=== PATIENT | female | born 1965 | race African-American/Black ===

== ENCOUNTER 2022-03-01 22:25 | Outpatient (REF) | payer OTHER, SELFPAY ==
[2022-03-03 10:57] LABS: COVID-19 RT-PCR UVMMC Result Negative (Negative)
== END 2022-03-01 22:26 | disposition home or self-care (01) ==
LOC: LBN 22:25
PROVIDERS: Visit Provider Physician Assistant Medical
DX: R05.8 Other specified cough (principal); J11.1 Influenza due to unidentified influenza virus with other respiratory manifestations; J02.9 Acute pharyngitis, unspecified; R11.2 Nausea with vomiting, unspecified; Z20.822 Contact with and (suspected) exposure to COVID-19
CPT/HCPCS: U0003; 87070

== ENCOUNTER 2022-10-15 12:17 | Outpatient (REF) | payer OTHER, SELFPAY ==
--- NOTE | 2022-10-15 | DI.RAD_ITS ---
Exam(s) XR CHEST 2V PA LATERAL EXAM: XR CHEST 2V PA LATERAL CLINICAL HISTORY: COUGH. TECHNIQUE: 2D digital imaging was performed. COMPARISON: No exams were available for comparison FINDINGS: 2 views: Heart size is normal. The mediastinum is not widened. Lungs are clear. No infiltrates nor pleural effusions. IMPRESSION: No acute pulmonary findings. DATA REPOSITORY: RADIATION DOSE DELIVERED:
--- NOTE | 2022-10-15 18:15 | DI.VRAD_ITS ---
PROCEDURE INFORMATION: Exam: XR Chest Exam date and time: 10/15/2022 6:00 PM Age: 56 years old Clinical indication: Other: Cough TECHNIQUE: Imaging protocol: Radiologic exam of the chest. Views: 2 views. COMPARISON: No relevant prior studies available. FINDINGS: Lungs: Unremarkable. No consolidation. Pleural spaces: Unremarkable. No pleural effusion. No pneumothorax. Heart/Mediastinum: Unremarkable. No cardiomegaly. Bones/joints: Unremarkable. IMPRESSION: No acute findings. Dictated and Authenticated by: Buck Kruger MD. Ordering:JANICE Alston MD
== END 2022-10-15 12:37 ==
LOC: DI 12:17
PROVIDERS: PCP Physician Assistant Medical; Visit Provider Nurse Practitioner Family
DX: R05.8 Other specified cough (principal)
CPT/HCPCS: 71046

== ENCOUNTER 2023-04-03 15:14 | Observation (INO) | payer OTHER, SELFPAY ==
[2023-04-03] VITALS (79 sets, daily range): BP systolic 115–152; BP diastolic 78–110; PULSE 107–130; RESP 13–36; TEMP 36.5–37.1; O2SAT 91–97
--- NOTE | 2023-04-03 15:00 | RT.EKG_ITS ---
APPROVED REPORT Exam: Resting ECG Reason for Exam: Syncope Patient Location: E HR:121 bpm ECG Measurements Heart Rate 121 AXIS MT 152 P 32 QRSd 85 QRS -22 QT 326 T 30 QTc 463 Conclusion Sinus tachycardia...rate> 99 Consider left ventricular hypertrophy...(R aVL+S V3) >2.20mV LAD, No STEMI, no previous for comparison.
--- NOTE | 2023-04-03 15:00 | DI.CT_ITS ---
Exam(s) CT HEAD WO EXAM: CT HEAD WO CLINICAL HISTORY: Syncope, Seizure. TECHNIQUE: Imaging Protocol: Axial computed tomography images with coronal and sagittal reformatted images were created and reviewed COMPARISON: No exams were available for comparison FINDINGS: Ventricles and Extra axial spaces: Normal in size and morphology for the patient's age. Hemorrhage: None. Cerebral parenchyma: No evidence of acute infarct or mass. Mild atrophy. Midline shift: None. Brainstem/Cerebellum: Normal. Calvarium: Normal. Visualized Paranasal sinuses/Mastoids: Clear. Soft Tissues: Unremarkable. IMPRESSION: No acute intracranial process. RADIATION DOSE DELIVERED: Total DLP DATA REPOSITORY: All CT scans at this facility are submitted to the National Radiology Data Registry (NRDR) Dose Index Registry (DIR) with the [employer] (ACR). RADIATION OPTIMIZATION: All CT scans at this facility use at least one of these dose optimization te chniques: automated exposure control; mA and/or kV adjustment per patient size (includes targeted exa ms where dose is matched to clinical indication); or iterative reconstruction.
--- NOTE | 2023-04-03 15:14 | W.ED.GENAD ---
Discharge Plan Disposition Patient Disposition: Admit to [facility] Condition: Serious Discharge Details Chief Complaint: AMS/LOC Clinical Impression: Alcohol withdrawal seizure Admit Date/Time: 04/03/23 19:58 Admit Provider: Dinesh Dias Attending Provider: Dinesh Dias Primary Care Provider: Marbella Phelps ED Provider: Ruma Oconnell Medical Decision Making <Jade Garcia NP - Last Filed: 04/03/23 15:46> 57-year-old female presents to the. She seizure-like activity prior to travel a lot contrast. 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 Did not fall on the floor or hit her head. No history of seizures. She does not remember the event. BGL 153 prior to arrival. She was recently diagnosed with sinus infection and is on antibiotics. Tachycardic per EMS prior to arrival and 128. She is confused. Work-up ordered including CBC CMP magnesium, EKG, right, urinalysis, alcohol level,troponin Care is to be handed off to oncoming provider Anish WOOD pending work-up and CT head. Liter of normal saline ordered 150-hour. <NINA Bourgeois - Last Filed: 04/03/23 22:04> 57-year-old female presents to the. She seizure-like activity prior to travel a lot contrast. 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 Did not fall on the floor or hit her head. No history of seizures. She does not remember the event. BGL 153 prior to arrival. She was recently diagnosed with sinus infection and is on antibiotics. Tachycardic per EMS prior to arrival and 128. She is confused. Work-up ordered including CBC CMP magnesium, EKG, right, urinalysis, alcohol level,troponin Care is to be handed off to oncoming provider Anish WOOD pending work-up and CT head. Liter of normal saline ordered 150-hour. Care was accepted in transition from pending complete work-up Patient is notably tachycardic, on reassessment, it did come to light that she is an alcoholic, drinking approximately a liter of vodka every 3 days, she drinks predominantly in the evenings after work and is able to go from 95 without feeling any signs of withdrawal She is alert and oriented, she does not appear to be postictal, she has marked swelling to her tongue on the right side and bruising consistent with injury likely related to a seizure, given that she is tapering off of vodka, I suspect this was an alcohol induced withdrawal seizure, received has remained at 6, she is alert, oriented, pleasant, able to follow basic commands, has a CT head and neck that does not show evidence of acute abnormality Diagnostic labs, mild QTc prolongation with hypomagnesemia, 1.2, 2 mg of mag initiated, potassium orally initially, EKG does not show evidence of acute ischemia Remains tachycardic despite 5 mg of IV Ativan administered, case discussed with Dr. Alcaraz, phenobarb and initiated, loading dose, 160, patient is resting quite comfortably in the room, no acute distress although she does remain tachycardic at 114 She is given 2 L of LR, LFTs are elevated likely consistent with alcoholism Agreeable to admission at this time for continued monitoring to the intensive care unit HPI <Jade Garcia NP - Last Filed: 04/03/23 15:46> General Mode of arrival: EMS. Date/Time Provider Initiated Documentation: 04/03/23 15:19. Limitations to Documentation: altered mental status. Information obtained by: patient, EMS, RN notes reviewed and old records reviewed. HPI Narrative: 57-year-old female presents to the ER via EMS with a chief complaint of stiffening and loss of consciousness while at work today. She has no recollection of the event she did not fall off the chair did not hit her head. According to EMS she was unresponsive for approximately 1 to 2 minutes. She reports that her thinking is fuzzy she reports denies any pain rating down denies any chest pain shortness of breath headache nausea vomiting diarrhea. She reports that she is was recently sick and out of work for 2 weeks. She does have a history of hypertension and EMS reported that she had a recent sinus infection. Is not on antibiotics. No obvious focal neurodeficits noted. Related Data Allergies Allergy/AdvReac Type Severity Reaction Status Date / Time No Known Allergies Allergy Unverified 04/03/23 15:17 Review of Systems <Jade Garcia NP - Last Filed: 04/03/23 15:46> All systems reviewed & are unremarkable except as noted in HPI and below Cardiovascular Cardiovascular: Reports syncope Neurologic Neurologic: Reports as per HPI, Reports confusion, Reports syncope and Reports seizure-like activity Psychiatric Psychiatric: Reports confusion PFSH <Jade Garcia NP - Last Filed: 04/03/23 15:46> All Active Problems (Updated 04/03/23 @ 21:36 by Dinesh Dias) Macrocytic anemia (Acute) Alcoholic hepatitis without ascites (Acute) Hypokalemia (Acute) Hypomagnesemia (Acute) Alcoholism with alcohol dependence (Acute) Alcohol withdrawal seizure (Acute) Social History Smoking risk assessment performed?: No Alcohol Intake: current Alcohol Intake frequency: 3 or more drinks per day Alcohol type: hard liquor Drug use: Daily Substance use type: marijuana Housing: house Do you feel safe at home: No Do you feel safe in your relationship?: No Exam <Jade Garcia NP - Last Filed: 04/03/23 15:46> Narrative Exam Narrative: Constitutional: Alert and oriented x2. Appears stated age. Normal body habitus. Head: Normocephalic, no trauma. Eyes: Pupils PERRL, Red reflex noted, EOM's intact. Eyelids symmetrical without lesions, discharge, or swelling. ENT: Bilateral TM's WNL, External ear normal to inspection, no mastoid TTP, swelling, or erythema, Nasal turbinates WNL, no nasal discharge. Normal dentition, Posterior pharynx WNL, no exudate. Chest: Sinus tachycardia with a rate of 130, Normal S1, S2, distal pulses intact. Resp: Lungs clear to auscultation bilaterally, no wheezes, rales, or rhonchi. Abdomen: Soft, non-distended, Normoactive bowel sounds all 4 quads. Musculoskeletal: Normal gait, 5/5 strength to all four extremities. Skin: No suspicious rashes or lesions. Capillary refill less than 2 sec. Neurologic: Cranial nerves II-XII intact. Alert and oriented x 2. Motor: No deficits noted. Sensory: Intact bilaterally all 4 extremities. Reflexes: DTR's intact bilaterally.. Hematologic/Lymphatic: No ecchymosis, no lymphadenopathy. Critical Care Time <NINA Bourgeois - Last Filed: 04/03/23 22:04> Critical Care Time Attestation: Approximately 60 minutes of critical care time secondary to acute alcohol withdrawal with seizure, medications such as IV Ativan and phenobarbital administered, telemetry monitoring, CT imaging and interpretation, IV fluid resuscitation, telemetry monitoring, ultimately admission to the intensive care unit Sign Out <Jade Garcia NP - Last Filed: 04/03/23 15:46> Sign Out Data: Sign Out Comment: Here with seizure like activity and LOC. Pending work up and CT head. Last updated by Jade Garcia NP at 04/03/23 15:39
[2023-04-03 16:13] LABS: Abs Immature Grans 0.06 10^3/uL (0.0-0.06); Absolute Basophil Count 0.03 10^3/uL (0.0-0.2); Absolute Eosinophil Count 0.02 10^3/uL (0.0-0.7); Absolute Lymphocyte Count 1.12 10^3/uL (1.2-3.4); Absolute Monocyte Count 0.47 10^3/uL (0.1-0.8); Absolute Neutrophil Count 4.53 10^3/uL (1.2-6.7); Basophils % 0.5; Eosinophils % 0.3; HCT 31.8 % (36.0-46.0); HGB 10.9 g/dL (11.2-15.7); MCH 36.5 pg (27.0-33.0); MCHC 34.3 % (32.0-36.0); MCV 106 fL (80-95); MPV 10.5 fL (8.0-11.0); Monocytes % 7.5; Neutrophils % 72.7; Platelet Count 141 10^3/uL (130-400); RBC 2.99 10^6/uL (3.93-5.22); RDW 17.2 % (11.7-14.6); RDW-SD 66.6 fL; WBC 6.23 10^3/uL (4.4-10.8)
[2023-04-03] MEDS: Normal Saline 1,000 ML 1000 ML IV (16:25)
--- NOTE | 2023-04-03 16:30 | DI.RAD_ITS ---
Exam(s) XR CHEST 2V PA LATERAL EXAM: XR CHEST 2V PA LATERAL CLINICAL HISTORY: new onset seizure. TECHNIQUE: 2D digital imaging was performed. COMPARISON: CR,XR XR CHEST 2V PA LATERAL from 10/15/2022 FINDINGS: 2 views: Heart size is normal. The mediastinum is not widened. Lungs are clear. No infiltrates nor pleural effusions. IMPRESSION: No acute pulmonary findings. DATA REPOSITORY: RADIATION DOSE DELIVERED:
[2023-04-03 16:37] LABS: Anisocytosis 1+; Diff Comment RBC Morph Reviewed; Macrocytosis 1+; Stomatocytes 2+
[2023-04-03] MEDS: LORazepam 2 MG/ML VIAL 1 MG IVP ×3 (16:40→19:30)
[2023-04-03 16:47] LABS: BE (Venous) 3 mmol/L (-2-3); HCO3 (Venous) 27 mmol/L (23-28); O2 Sat (Venous) 70 %; TCO2 (Venous) 25 mmol/L (24-29); pCO2 (Venous) 40 mmHg (41-51); pH (Venous) 7.44 (7.31-7.41); pO2 (Venous) 39 mmHg
[2023-04-03 18:02] LABS: ALT 99 U/L (14-59); AST 247 U/L (15-37); Albumin 3.2 g/dL (3.4-5.0); Alkaline Phosphatase 292 U/L (46-116); Anion Gap 10.4 mmol/L (3-11); BUN 16 mg/dL (7-18); Bilirubin, Total 1.1 mg/dL (0.2-1.0); CO2 25.6 mmol/L (21.0-32.0); CREATININE 1.1 mg/dL (0.55-1.02); Calcium 8.6 mg/dL (8.5-10.1); Chloride 102 mmol/L (98-107); Estimated GFR 58.61 (mL/min/1.73m2); Glucose 113 mg/dL (74-106); Magnesium 1.2 mg/dL (1.8-2.4); Potassium 3.3 mmol/L (3.5-5.1); Sodium 138 mmol/L (136-145); TSH (W/Ref FT4) 1.53 uIU/mL (0.36-3.74); Total Protein 7.7 g/dL (6.4-8.2); Troponin I < 50 ng/L (<or=60)
[2023-04-03 18:08] LABS: ETHANOL BLOOD < 3.0 mg/dL (<10)
[2023-04-03 18:38] LABS: Bilirubin Negative (Negative); Blood Negative (Negative); Clarity Clear (Clear); Glucose Negative (Negative); Ketones Negative (Negative); Leukocyte Esterase Negative (Negative); Nitrite Negative (Negative); Specific Gravity 1.015 (1.005-1.025); Urobilinogen 0.2 mg/dL (Up to 0.2)
[2023-04-03] MEDS: Lactated Ringers 500 ML 1000 ML IV (18:42)
[2023-04-03] MEDS: LORazepam 2 MG/ML VIAL IVP (18:43)
[2023-04-03] MEDS: MAGNESIUM SULFATE 2 GM/50 ML BAG IVPB (18:44)
[2023-04-03 18:51] LABS: *AMPHETAMINES SCREEN URINE Negative (Negative); *BARBITURATES SCREEN URINE Negative (Negative); *BENZODIAZEPINES SCREEN URINE Negative (Negative); Cannabinoids THC Negative (Negative); Cocaine Screen,Urine Negative (Negative); METHADONE URINE SCREEN Negative (Negative); OPIATES URINE SCREEN Negative (Negative)
[2023-04-03 18:54] LABS: Tricyclic Antidepressants Negative (Negative)
[2023-04-03] MEDS: Normal Saline 1,000 ML 150 ML IV (19:30)
[2023-04-03 20:06] LABS: Source Nasal/Nares
[2023-04-03] MEDS: Potassium Chloride 20 MEQ TABCR 40 MEQ PO (20:13)
[2023-04-03] MEDS: PHENobarbital 140 MG in Normal Saline 50 ML 100 MG IVPB (20:13)
[2023-04-03 20:37] LABS: COVID-19 PCR Negative (Negative)
--- NOTE | 2023-04-03 21:31 | W.PM.HP.N ---
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 She had a seizure-like activity and bit her tongue while at work with marked decrease in alcohol intake recently usually drinking 1.7 L of vodka in a week with increased use over the last 2 weeks and patient trying to decrease and stop over the last couple of days. She has never had seizure activity or alcohol withdrawal has been quit for up to a month in the last year. She has not had recent labs for comparison but does have elevated liver function test and low magnesium and potassium. He does not eat well at home with her alcohol intake. She will be admitted for alcohol withdrawal syndrome with phenobarbital protocol and consider further imaging versus neurological consultation if available. She is a full code. Qualifiers: Complication of substance-induced condition: uncomplicated Qualified Code(s): F10.930 - Alcohol use, unspecified with withdrawal, uncomplicated; R56.9 - Unspecified convulsions (2) HTN (hypertension): Status: Chronic Assessment and plan: Patient does have tachycardia with hypertension and does not know her outpatient medical therapy. Metoprolol will be initiated to treat hypertension and tachycardia. Tachycardia may resolve with hydration and treatment of alcohol withdrawal. Qualifiers: Hypertension type: primary hypertension Qualified Code(s): I10 - Essential (primary) hypertension (3) Hypomagnesemia: Start date: 04/03/23 Status: Acute Assessment and plan: Patient was repleted with magnesium in the ED and will receive 4 more grams IV with follow-up labs and adjustment of supplement orally if needed. Long-term stopping alcohol and eating better should help this problem. (4) Hypokalemia: Start date: 04/03/23 Status: Acute Assessment and plan: Replete and follow-up lab adjusting therapy. Patient may be on a chronic hydrochlorothiazide type combination for blood pressure treatment and if so may need chronic potassium supplementation with magnesium. (5) Alcoholism with alcohol dependence: Status: Chronic Assessment and plan: Patient has significant alcohol intake and does not want to stop. She should have outpatient treatment once discharged to help with continued abstinence. Qualifiers: Substance use status: unspecified alcohol-induced disorder Qualified Code(s): F10.29 - Alcohol dependence with unspecified alcohol-induced disorder (6) Alcoholic hepatitis without ascites: Status: Chronic Assessment and plan: Follow-up lab of alcohol. Advance regular diet. (7) Macrocytic anemia: Status: Chronic Assessment and plan: Check for deficiencies and being on alcohol should help this problem. 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 She did have problems with a sore tongue afterwards and had not had any incontinence reported. She brought to the ED and evaluation was consistent with alcohol withdrawal seizures the patient having a history of drinking 1.7 L of vodka mostly at night over about 1 week but with a recent sinus infection and being at home continuously, she was drinking more. Over the last couple of days the patient has been trying to stop her alcohol intake and had a negative alcohol level when she was seen in the ED. She has history of asthma and hypertension and is on minimal medication. She has had no previous history of seizure. Imaging was unrevealing but labs did appear to be consistent with chronic alcoholism with elevated liver function test and electrolyte abnormalities which were being repleted. She did complain of a sore tongue which was improving with decreased swelling but had no other focal complaints with review of systems. She has been active in her job and not miss work because of her drinking. She had had a recent infection as stated with antibiotics and a course of prednisone which she often takes when ill. Her main concern was that she could go back to work and home course of treatment for alcohol withdrawal and time will tell. She was loaded with phenobarbital be treated for alcohol withdrawal with phenobarbital protocol which also may help for seizures. MRI of the brain could be considered the EEG and neurological consultation eventually should all happen. She has no focal neurological complaints as mentioned and this may be able to be done as an outpatient if not available. She is a full code. Review of Systems Narrative: 13 point review of systems otherwise unrevealing or stable. PFSH All Active Problems (Updated 04/04/23 @ 00:41 by Dinesh Dias) HTN (hypertension) (Chronic) Macrocytic anemia (Chronic) Alcoholic hepatitis without ascites (Chronic) Hypokalemia (Acute) Hypomagnesemia (Acute) Alcoholism with alcohol dependence (Chronic) Alcohol withdrawal seizure (Acute) Social History Smoking risk assessment performed?: No Alcohol Intake: current Alcohol Intake frequency: 3 or more drinks per day Alcohol type: hard liquor Drug use: Daily Substance use type: marijuana Housing: house Do you feel safe at home: No Do you feel safe in your relationship?: No Meds Allergies and Home Medications Allergies Allergy/AdvReac Type Severity Reaction Status Date / Time No Known Allergies Allergy Unverified 04/03/23 15:17 Exam Narrative Exam Narrative: General: Patient appears older than stated age, she is moderately obese, slightly sedated from medical therapy but alert and oriented x3. In no acute distress. HEENT: Normocephalic, eyes with pupils equal and reactive to light symmetrically, extraocular movement intact and sclera anicteric. Oropharynx with slightly dry mucosa. Tongue is slightly swollen with some bruising over the edges. Neck: Supple without JVD. Back: Stooped posture without CVA tenderness. Lungs: Decreased aeration of the left more than right base with occasional coarse crackle but no focalizing. No increased expiratory phase or expiratory wheeze. Bronchovesicular breath sounds diffusely. Breast: Exam deferred. Heart: Tachycardic rate with regular rhythm. No appreciable murmur or gallop. Abdomen: Obese contour and slightly protuberant but no focalizing tenderness or guarding. No palpable hepatosplenomegaly. Genitalia/rectal: Exam deferred. Skin: Brown, warm and dry. Extremities: Without clubbing, cyanosis or pitting edema with probable nonpitting edema lower extremities versus obesity. Good capillary refill. Neuro: Cranial nerves II through XII grossly intact. No focalizing motor deficits. DTRs for logic and symmetrical. No Babinski's. No tremor. Psych: Flattened affect with depressed mood. No abnormal thought processes. Remote and recent memory grossly intact. Results Imaging Imaging Studies: EXAM: CT HEAD WO CLINICAL HISTORY: Syncope, Seizure. TECHNIQUE: Imaging Protocol: Axial computed tomography images with coronal and sagittal reformatted images were created and reviewed COMPARISON: No exams were available for comparison FINDINGS: Ventricles and Extra axial spaces: Normal in size and morphology for the patient's age. Hemorrhage: None. Cerebral parenchyma: No evidence of acute infarct or mass. Mild atrophy. Midline shift: None. Brainstem/Cerebellum: Normal. Calvarium: Normal. Visualized Paranasal sinuses/Mastoids: Clear. Soft Tissues: Unremarkable. IMPRESSION: No acute intracranial process. EXAM: XR CHEST 2V PA LATERAL CLINICAL HISTORY: new onset seizure. TECHNIQUE: 2D digital imaging was performed. COMPARISON: CR,XR XR CHEST 2V PA LATERAL from 10/15/2022 FINDINGS: 2 views: Heart size is normal. The mediastinum is not widened. Lungs are clear. No infiltrates nor pleural effusions. IMPRESSION: No acute pulmonary findings. Labs 04/04/23 04:50 04/04/23 04:50 Labs: Laboratory Results - last 24 hr 04/03/23 04/03/23 04/03/23 16:07 16:44 17:25 WBC 6.23 RBC 2.99 L Hgb 10.9 L Hct 31.8 L MCV 106 H MCH 36.5 H MCHC 34.3 RDW 17.2 H Plt Count 141 MPV 10.5 Immature Gran % 1.0 Neutrophils % 72.7 Lymphocytes % 18.0 Monocytes % 7.5 Eosinophils % 0.3 Basophils % 0.5 Nucleated RBC % 0.0 Absolute Neutrophils 4.53 Absolute Lymphocytes 1.12 L Absolute Monocytes 0.47 Absolute Eosinophils 0.02 Absolute Basophils 0.03 RBC Morphology See Below Anisocytosis 1+ Macrocytosis 1+ Stomatocytes 2+ VBG pH 7.44 H VBG pCO2 40 L VBG pO2 39 VBG HCO3 27 VBG Total CO2 25 VBG O2 Saturation 70 VBG Base Excess 3 Sodium Cancelled 138 Potassium Cancelled 3.3 L Chloride Cancelled 102 Carbon Dioxide Cancelled 25.6 Anion Gap Cancelled 10.4 BUN Cancelled 16 Creatinine Cancelled 1.1 H Est GFR (CKD-EPI 2020) Cancelled 58.61 Glucose Cancelled 113 H Calcium Cancelled 8.6 Magnesium Cancelled Cancelled 1.2 L Total Bilirubin Cancelled 1.1 H AST Cancelled 247 H ALT Cancelled 99 H Alkaline Phosphatase Cancelled 292 H Troponin I Cancelled < 50 Total Protein Cancelled 7.7 Albumin Cancelled 3.2 L TSH Cancelled 1.53 Urine Color Urine Clarity Urine pH Ur Specific [place] Urine Protein Urine Ketones Urine Blood Urine Nitrite Urine Bilirubin Urine Urobilinogen Ur Leukocyte Esterase Urine Glucose Urine Opiates Screen Urine Methadone Screen Ur Barbiturates Screen Ur Tricyclics Screen Ur Amphetamines Screen U Benzodiazepines Scrn Urine Cocaine Screen Ur THC Screen Ethyl Alcohol Cancelled < 3.0 COVID-19 Source SARS-CoV-2 (PCR) 04/03/23 04/03/23 18:20 20:05 WBC RBC Hgb Hct MCV MCH MCHC RDW Plt Count MPV Immature Gran % Neutrophils % Lymphocytes % Monocytes % Eosinophils % Basophils % Nucleated RBC % Absolute Neutrophils Absolute Lymphocytes Absolute Monocytes Absolute Eosinophils Absolute Basophils RBC Morphology Anisocytosis Macrocytosis Stomatocytes VBG pH VBG pCO2 VBG pO2 VBG HCO3 VBG Total CO2 VBG O2 Saturation VBG Base Excess Sodium Potassium Chloride Carbon Dioxide Anion Gap BUN Creatinine Est GFR (CKD-EPI 2020) Glucose Calcium Magnesium Total Bilirubin AST ALT Alkaline Phosphatase Troponin I Total Protein Albumin TSH Urine Color Yellow Urine Clarity Clear Urine pH 6.0 Ur Specific [place] 1.015 Urine Protein Negative Urine Ketones Negative Urine Blood Negative Urine Nitrite Negative Urine Bilirubin Negative Urine Urobilinogen 0.2 Ur Leukocyte Esterase Negative Urine Glucose Negative Urine Opiates Screen Negative Urine Methadone Screen Negative Ur Barbiturates Screen Negative Ur Tricyclics Screen Negative Ur Amphetamines Screen Negative U Benzodiazepines Scrn Negative Urine Cocaine Screen Negative Ur THC Screen Negative Ethyl Alcohol COVID-19 Source Nasal/Nares SARS-CoV-2 (PCR) Negative Last Vital Signs Temp 36.5 C 04/03/23 15:12 Pulse 124 H 04/03/23 20:46 Resp 15 04/03/23 21:00 BP 127/91 H 04/03/23 20:46 Pulse Ox 97 04/03/23 15:12 PAWSS Have you Been Recently Intoxicated or Drunk Within the Last 30 days?: Yes Have you Ever Experienced Previous Episodes of Alcohol Withdrawal?: Yes Have you ever Experienced Withdrawal Seizures?: Yes Have you ever Experienced Delirium Tremens(DT)s?: No Have you ever undergone Alcohol Rehabilitation Treatment (i.e, inpt ot outpatient treatment programs)?: No Have you ever Experienced Blackouts?: No Have you ever Combined Alcohol with other Downers within the last 90 days?: No Have you ever Combined Alcohol with any other Substance of Abuse during the last 90 days?: No Positive Blood Alcohol level on Presentation? [PCS.BAL]: No Evidence of Increased Autonomic Activity (i.e. HR>120, tremor, sweating, agitation, nausea)?: No Result: 3 Time Spent Time spent with Patient: >75 minutes Time was spent: preparing to see the patient(eg.review tests), obtaining and/or reviewing separately otained hiistory, ordering medications,tests, procedures, referring, communicating with other health furnace caretaker, indepentently interpreting results, counseling the patient and care coordination
[2023-04-03 22:54] LABS: INR 1.1 (0.9-1.1); Prothrombin Time 10.9 sec (9.1-11.1)
[2023-04-03] MEDS: SODIUM CHLORIDE 0.45% 1,000 ML 125 ML IV (22:54)
[2023-04-03] MEDS: Enoxaparin 40 MG/0.4 ML SYR SC (22:55)
[2023-04-04] VITALS (120 sets, daily range): BP systolic 94–143; BP diastolic 70–94; PULSE 83–132; RESP 8–39; TEMP 35.9–37.3; O2SAT 90–98
--- NOTE | 2023-04-04 | DI.CT_ITS ---
Exam(s) CT SINUS WO EXAM: CT SINUS WO CLINICAL HISTORY: acute sinusitis. Evaluate for sinusitis. TECHNIQUE: Imaging Protocol: Axial computed tomography images with coronal and sagittal reformatted images were created and reviewed. COMPARISON: CT CT HEAD WO from 04/03/2023 FINDINGS: Frontal sinuses: Normally aerated. Ethmoid air cells: Normally aerated. Maxillary sinuses: Minimal mucous retention at the floor of the left maxillary sinus. Right maxillar y sinus is clear. Sphenoid sinus: Normally aerated. Ostiomeatal complexes: Patent. Nasal cavity: Septum is midline. Visualized regional soft tissues: No acute findings. Orbits: Unremarkable. Bones: Unremarkable. Mastoid Air Cells: Normally aerated. Visualized portions of the brain: Unremarkable as visualized. IMPRESSION: Minimal mucous retention floor of left maxillary sinus. RADIATION DOSE DELIVERED: Total DLP DATA REPOSITORY: All CT scans at this facility are submitted to the National Radiology Data Registry (NRDR) Dose Index Registry (DIR) with the [employer] (ACR). RADIATION OPTIMIZATION: All CT scans at this facility use at least one of these dose optimization te chniques: automated exposure control; mA and/or kV adjustment per patient size (includes targeted exa ms where dose is matched to clinical indication); or iterative reconstruction.
[2023-04-04] MEDS: PHENobarbital 110 MG in Normal Saline 50 ML 100 MG IVPB ×2 (00:17→02:18)
[2023-04-04] MEDS: MAGNESIUM SULFATE 4 GM/100 ML BAG IVPB (00:17)
[2023-04-04] MEDS: Normal Saline Flush 10 ML SYR IVP ×3 (01:13→19:57)
[2023-04-04] MEDS: Metoprolol 25 MG TAB PO ×3 (01:20→19:57)
[2023-04-04 05:17] LABS: HGB 10.1 g/dL (11.2-15.7); MCH 35.7 pg (27.0-33.0); MCHC 33.7 % (32.0-36.0); MPV 10.3 fL (8.0-11.0); Platelet Count 134 10^3/uL (130-400); RBC 2.83 10^6/uL (3.93-5.22); RDW 17.4 % (11.7-14.6); WBC 7.38 10^3/uL (4.4-10.8)
[2023-04-04 05:22] LABS: MCV 106 fL (80-95)
[2023-04-04 05:35] LABS: Anion Gap 9.3 mmol/L (3-11); BUN 11 mg/dL (7-18); CO2 25.7 mmol/L (21.0-32.0); CREATININE 0.6 mg/dL (0.55-1.02); Calcium 8.2 mg/dL (8.5-10.1); Chloride 103 mmol/L (98-107); Estimated GFR 104.63 (mL/min/1.73m2); Glucose 117 mg/dL (74-106); Magnesium 2.9 mg/dL (1.8-2.4); Potassium 3.1 mmol/L (3.5-5.1); Sodium 138 mmol/L (136-145)
[2023-04-04 05:39] LABS: PHOSPHORUS 2.5 mg/dL (2.6-4.7)
[2023-04-04 05:43] LABS: ALT 76 U/L (14-59); AST 167 U/L (15-37); Albumin 2.8 g/dL (3.4-5.0); Alkaline Phosphatase 265 U/L (46-116); Bilirubin, Direct 0.5 mg/dL (0.0-0.2); Bilirubin, Total 1.2 mg/dL (0.2-1.0)
--- NOTE | 2023-04-04 09:45 | W.PM.PROGNOT ---
Date of Service Date of service: 04/04/23 Time of Service: 09:45 Assessment and Plan Assessment and plan (1) Alcohol withdrawal seizure: Status: Acute Assessment and plan: check EEG if available, continue phenobarbital loading, however, I would not begin AED. check MRI of brain for any concommittant pathology. monitor for further withdrawal symptoms, continue MVS and thiamine Qualifiers: Complication of substance-induced condition: uncomplicated Qualified Code(s): F10.930 - Alcohol use, unspecified with withdrawal, uncomplicated; R56.9 - Unspecified convulsions (2) Alcoholism with alcohol dependence: Status: Chronic Assessment and plan: refer for manager recovery upon discharge Qualifiers: Substance use status: unspecified alcohol-induced disorder Qualified Code(s): F10.29 - Alcohol dependence with unspecified alcohol-induced disorder (3) Alcoholic hepatitis without ascites: Status: Chronic Assessment and plan: monitor LFT if not resolving w/ abstinence then may need imaging of her liver (4) Sinusitis, acute: Status: Acute Assessment and plan: afrin, flonase and Levaquin; get formal CT of sinuses as her head CT was done w/out contrast and did not get all of her sinuses Qualifiers: Sinusitis location: maxillary Recurrence: non-recurrent Qualified Code(s): J01.00 - Acute maxillary sinusitis, unspecified (5) Macrocytic anemia: Status: Chronic Assessment and plan: awaiting anemia studies, i.e. B12, folate, iron studies but suspect d/t chronic alcohol toxicity of her bone marrow (6) Hypomagnesemia: Status: Acute Assessment and plan: replete and monitor (7) Hypokalemia: Status: Acute Assessment and plan: replete and monitor (8) HTN (hypertension): Status: Chronic Assessment and plan: monitor BP, may normalize w/ treating her withdrawal Qualifiers: Hypertension type: primary hypertension Qualified Code(s): I10 - Essential (primary) hypertension Subjective Subjective Interval history since last seen: Patient had onset seizure yesterday while at work. Occurred in setting of her self reduction in her alcohol intake. She previously been drinking about pint of vodka per day but started diluting over the past week to half pint per day. She also had recent sinusitis and failed amoxicillin. She had complains of facial pain, nasal congestion. She was started on the phenobarbital protocol but only received a loading dose of 6 mg/kg. I have asked pharmacy to give her the full 10 mg/kg loading dose, so she will get the balance of her dose this moring. Unfortunately we have no neurology vocational rehabilitation consultant available today. I will still try to get an EEG done today. If unable to get this done then will arrange as outpatient. She can be transferred out of ICU but will be kept overnight to watch for any further seizures, if none then she can return home tomorrow. She was under recent treatment for sinusitis, when her seizure occurred she had preceding dizziness which she atrributed to her sinusitis. She has failed course of amoxacillin and was to start on zithromax, she had been using Afrin for her nassal congestion. 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 Exam Narrative Exam Narrative: Radha is alert and oriented, N.A.D. She had direct conversation w/ me, she answers me appropriately ramirez not seem to be tremulous and non-diaphoretic Lungs: clear Heart: RRR Extremities: no tremors or sweating HEENT: I did not seeny bite or bleeding to her tongue, she has facial tenderness over both maxilla Objective Last Vital Signs Temp 36.6 C 04/04/23 06:00 Pulse 84 04/04/23 06:00 Resp 18 04/04/23 06:00 BP 103/71 04/04/23 06:00 Pulse Ox 92 04/04/23 08:19 Laboratory Results - last 24 hr 04/03/23 04/03/23 04/03/23 16:07 16:44 17:25 WBC 6.23 RBC 2.99 L Hgb 10.9 L Hct 31.8 L MCV 106 H MCH 36.5 H MCHC 34.3 RDW 17.2 H Plt Count 141 MPV 10.5 Immature Gran % 1.0 Neutrophils % 72.7 Lymphocytes % 18.0 Monocytes % 7.5 Eosinophils % 0.3 Basophils % 0.5 Nucleated RBC % 0.0 Absolute Neutrophils 4.53 Absolute Lymphocytes 1.12 L Absolute Monocytes 0.47 Absolute Eosinophils 0.02 Absolute Basophils 0.03 RBC Morphology See Below Anisocytosis 1+ Macrocytosis 1+ Stomatocytes 2+ PT INR VBG pH 7.44 H VBG pCO2 40 L VBG pO2 39 VBG HCO3 27 VBG Total CO2 25 VBG O2 Saturation 70 VBG Base Excess 3 Sodium Cancelled 138 Potassium Cancelled 3.3 L Chloride Cancelled 102 Carbon Dioxide Cancelled 25.6 Anion Gap Cancelled 10.4 BUN Cancelled 16 Creatinine Cancelled 1.1 H Est GFR (CKD-EPI 2020) Cancelled 58.61 Glucose Cancelled 113 H Calcium Cancelled 8.6 Phosphorus Magnesium Cancelled Cancelled 1.2 L Total Bilirubin Cancelled 1.1 H Conjugated Bilirubin AST Cancelled 247 H ALT Cancelled 99 H Alkaline Phosphatase Cancelled 292 H Troponin I Cancelled < 50 Total Protein Cancelled 7.7 Albumin Cancelled 3.2 L TSH Cancelled 1.53 Urine Color Urine Clarity Urine pH Ur Specific [place] Urine Protein Urine Ketones Urine Blood Urine Nitrite Urine Bilirubin Urine Urobilinogen Ur Leukocyte Esterase Urine Glucose Urine Opiates Screen Urine Methadone Screen Ur Barbiturates Screen Ur Tricyclics Screen Ur Amphetamines Screen U Benzodiazepines Scrn Urine Cocaine Screen Ur THC Screen Ethyl Alcohol Cancelled < 3.0 COVID-19 Source SARS-CoV-2 (PCR) 04/03/23 04/03/23 04/03/23 18:20 20:05 22:25 WBC RBC Hgb Hct MCV MCH MCHC RDW Plt Count MPV Immature Gran % Neutrophils % Lymphocytes % Monocytes % Eosinophils % Basophils % Nucleated RBC % Absolute Neutrophils Absolute Lymphocytes Absolute Monocytes Absolute Eosinophils Absolute Basophils RBC Morphology Anisocytosis Macrocytosis Stomatocytes PT 10.9 INR 1.1 VBG pH VBG pCO2 VBG pO2 VBG HCO3 VBG Total CO2 VBG O2 Saturation VBG Base Excess Sodium Potassium Chloride Carbon Dioxide Anion Gap BUN Creatinine Est GFR (CKD-EPI 2020) Glucose Calcium Phosphorus Magnesium Total Bilirubin Conjugated Bilirubin AST ALT Alkaline Phosphatase Troponin I Total Protein Albumin TSH Urine Color Yellow Urine Clarity Clear Urine pH 6.0 Ur Specific [place] 1.015 Urine Protein Negative Urine Ketones Negative Urine Blood Negative Urine Nitrite Negative Urine Bilirubin Negative Urine Urobilinogen 0.2 Ur Leukocyte Esterase Negative Urine Glucose Negative Urine Opiates Screen Negative Urine Methadone Screen Negative Ur Barbiturates Screen Negative Ur Tricyclics Screen Negative Ur Amphetamines Screen Negative U Benzodiazepines Scrn Negative Urine Cocaine Screen Negative Ur THC Screen Negative Ethyl Alcohol COVID-19 Source Nasal/Nares SARS-CoV-2 (PCR) Negative 04/04/23 04:50 WBC 7.38 RBC 2.83 L Hgb 10.1 L Hct 30.0 L MCV 106 H MCH 35.7 H MCHC 33.7 RDW 17.4 H Plt Count 134 MPV 10.3 Immature Gran % Neutrophils % Lymphocytes % Monocytes % Eosinophils % Basophils % Nucleated RBC % Absolute Neutrophils Absolute Lymphocytes Absolute Monocytes Absolute Eosinophils Absolute Basophils RBC Morphology Anisocytosis Macrocytosis Stomatocytes PT INR VBG pH VBG pCO2 VBG pO2 VBG HCO3 VBG Total CO2 VBG O2 Saturation VBG Base Excess Sodium 138 Potassium 3.1 L Chloride 103 Carbon Dioxide 25.7 Anion Gap 9.3 BUN 11 Creatinine 0.6 Est GFR (CKD-EPI 2020) 104.63 Glucose 117 H Calcium 8.2 L Phosphorus 2.5 L Magnesium 2.9 H Total Bilirubin 1.2 H Conjugated Bilirubin 0.5 H AST 167 H ALT 76 H Alkaline Phosphatase 265 H Troponin I Total Protein 7.0 Albumin 2.8 L TSH Urine Color Urine Clarity Urine pH Ur Specific [place] Urine Protein Urine Ketones Urine Blood Urine Nitrite Urine Bilirubin Urine Urobilinogen Ur Leukocyte Esterase Urine Glucose Urine Opiates Screen Urine Methadone Screen Ur Barbiturates Screen Ur Tricyclics Screen Ur Amphetamines Screen U Benzodiazepines Scrn Urine Cocaine Screen Ur THC Screen Ethyl Alcohol COVID-19 Source SARS-CoV-2 (PCR) PAWSS Have you Been Recently Intoxicated or Drunk Within the Last 30 days?: Yes Have you Ever Experienced Previous Episodes of Alcohol Withdrawal?: Yes Have you ever Experienced Withdrawal Seizures?: Yes Have you ever Experienced Delirium Tremens(DT)s?: No Have you ever undergone Alcohol Rehabilitation Treatment (i.e, inpt ot outpatient treatment programs)?: No Have you ever Experienced Blackouts?: No Have you ever Combined Alcohol with other Downers within the last 90 days?: No Have you ever Combined Alcohol with any other Substance of Abuse during the last 90 days?: No Positive Blood Alcohol level on Presentation? [PCS.BAL]: No Evidence of Increased Autonomic Activity (i.e. HR>120, tremor, sweating, agitation, nausea)?: No Result: 3 Time Spent with Patient Time Spent with Patient: 35-49 minutes Time was spent: preparing to see the patient(eg.review tests), obtaining and/or reviewing separately otained hiistory, ordering medications,tests, procedures, referring, communicating with other health pet caretaker, indepentently interpreting results, counseling the patient and care coordination
[2023-04-04] MEDS: Folic Acid 1 MG TAB PO (10:03)
[2023-04-04] MEDS: Multivitamin TAB 1 TAB PO (10:05)
[2023-04-04] MEDS: Thiamine 100 MG TAB PO (10:06)
--- NOTE | 2023-04-04 10:17 | INITIAL_ITS ---
Date of service: 04/04/23 Time of Service: 10:17 Care Management Initial Assmt Initial Assessment REASON FOR HOSPITALIZATION:: alcohol withdrawal seizure PREVIOUS FUNCTIONAL STATUS/SOCIAL/FAMILY SUPPORTS:: Leyla lives in [place] with her Reid. They do not have any children but they do have 2 dogs. 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 She is independent at baseline and does not receive any community services. CURRENT FUNCTIONAL STATUS:: Leyla was sitting up in bed visiting with a friend when CM met with her. She was pleasant in manner and agreeable to conversation. Leyla stated that she is feeling better. Discussion about substance use resources was deferred due to the presence of her visitor. ADVANCE DIRECTIVES:: none on file Has patient been provided with info about the portal/API?: Yes Did the patient sign up for the portal?: No CODE STATUS:: Full Code INSURANCE COVERAGE / FINANCIAL ISSUES:: [employer] CURRENT HOME/COMMUNITY SERVICES/EQUIPMENT:: none PRIMARY CARE PHYSICIAN:: Marbella Leung POTENTIAL DISCHARGE NEEDS:: substance use treatment PATIENT/FAMILY EDUCATION NEEDS:: Review of discharge instructions, activity, limitations, follow up plan, discuss Ask Me Three TRANSPORTATION:: via private vehicle PLAN:: Anticipate Radha will be discharged home with no new services when medically cleared. She will follow up with her community providers and plan of care and transport with family. CM will follow and support discharge planning needs. PFSH All Active Problems (Updated 04/04/23 @ 10:03 by Elkin Ross MD) Sinusitis, acute (Acute) HTN (hypertension) (Chronic) Macrocytic anemia (Chronic) Alcoholic hepatitis without ascites (Chronic) Hypokalemia (Acute) Hypomagnesemia (Acute) Alcoholism with alcohol dependence (Chronic) Alcohol withdrawal seizure (Acute) Social History Smoking risk assessment performed?: No Alcohol Intake: current Alcohol Intake frequency: 3 or more drinks per day Alcohol type: hard liquor Drug use: Daily Substance use type: marijuana Housing: house Do you feel safe at home: No Do you feel safe in your relationship?: No
[2023-04-04 10:36] LABS: Ferritin 251 ng/mL (8-252); Folate 18.2 ng/mL (8.6-20.0)
[2023-04-04 10:37] LABS: Iron 77 ug/dL (50-170); Total Iron Binding Capacity 330 ug/dL (250-450); Transferrin Sat 23 % (15-50)
[2023-04-04 10:46] LABS: Vitamin B12 441 pg/mL (193-986)
[2023-04-04] MEDS: levoFLOXacin 500 MG, levoFLOXacin 250 MG 750 MG PO (11:18)
[2023-04-04] MEDS: Potassium Chloride 20 MEQ TABCR 40 MEQ PO (12:00)
[2023-04-04] MEDS: Potassium Chloride 10 MEQ CAPCR 20 MEQ PO ×3 (12:13→19:56)
[2023-04-04] MEDS: Fluticasone NASAL SPRAY 16 GM BTL NS ×2 (12:21→19:56)
--- NOTE | 2023-04-04 13:39 | NUR.NOTE ---
Patient placed in wheelchair and taken to radiology for CT scan of sinuses.Nursing Note:
--- NOTE | 2023-04-04 16:00 | CHAPLAIN ---
I had a brief visit with Radha as she had someone in the room with her. I explained my role and offered support.
[2023-04-04] MEDS: Loperamide 2 MG CAP 4 MG PO (16:31)
[2023-04-04 18:35] LABS: C Diff PCR Negative (Negative)
[2023-04-04] MEDS: Oxymetazolone 0.05% SPRAY 15 ML BTL NS (19:55)
[2023-04-04] MEDS: PHENobarbital 130 MG/ML VIAL IVP (19:56)
[2023-04-04] MEDS: Loperamide 2 MG CAP PO (19:59)
[2023-04-04] MEDS: Enoxaparin 40 MG/0.4 ML SYR SC (23:23)
[2023-04-04] MEDS: Acetaminophen 325 MG TAB PO (23:24)
[2023-04-05] VITALS (13 sets, daily range): BP systolic 93–120; BP diastolic 65–83; PULSE 79–97; RESP 16–22; TEMP 36.6–36.8; O2SAT 92–98
[2023-04-05 06:27] LABS: ALT 70 U/L (14-59); AST 137 U/L (15-37); Albumin 2.7 g/dL (3.4-5.0); Alkaline Phosphatase 272 U/L (46-116); BUN 11 mg/dL (7-18); Bilirubin, Total 0.8 mg/dL (0.2-1.0); CREATININE 0.6 mg/dL (0.55-1.02); Calcium 8.5 mg/dL (8.5-10.1); Chloride 105 mmol/L (98-107); Estimated GFR 104.63 (mL/min/1.73m2); Glucose 121 mg/dL (74-106); PHOSPHORUS 3.2 mg/dL (2.6-4.7); Potassium 3.5 mmol/L (3.5-5.1); Sodium 137 mmol/L (136-145); Total Protein 7.1 g/dL (6.4-8.2)
[2023-04-05] MEDS: Multivitamin TAB 1 TAB PO (07:53)
[2023-04-05] MEDS: levoFLOXacin 500 MG, levoFLOXacin 250 MG 750 MG PO (07:53)
[2023-04-05] MEDS: Thiamine 100 MG TAB PO (07:53)
[2023-04-05] MEDS: Fluticasone NASAL SPRAY 16 GM BTL NS (07:54)
[2023-04-05] MEDS: Oxymetazolone 0.05% SPRAY 15 ML BTL NS (07:54)
[2023-04-05] MEDS: Folic Acid 1 MG TAB PO (07:54)
[2023-04-05] MEDS: Metoprolol 25 MG TAB PO (07:54)
[2023-04-05] MEDS: Normal Saline Flush 10 ML SYR IVP (07:55)
--- NOTE | 2023-04-05 10:40 | DSE_ITS ---
Date of service: 04/05/23 Time of Service: 10:40 DS: Diagnosis Discharge Diagnosis (1) Alcohol withdrawal seizure: Status: Acute Asessment and Plan: See admission H&P and ED notes for details of presentation. Patient had new onset seizure while at work associated w/ recent abrupt decrease in the quantity of her daily alcohol consumption. Patient was treated w/ phenobarbital per [facility] alcohol protocol, receiving a total loading dose of 10 mg/kg, she had no further seizures. EEG and neurology were not available for consultation. CT imaging of her brain showed no focal abnormalities. Patient was discharged home to follow up w/ her PCP. She was advised to enter into Alcoholics Anonymous or a similar abstinence program. The director of home care hospice gave her contact information to seek a assistant coach. She was not started on anti-epileptic medications. She should have outpatient follow up w/ neurology, and she should obtain an EEG and a brain MRI scan as an outpatient. (2) Alcoholism with alcohol dependence: Status: Chronic (3) Alcoholic hepatitis without ascites: Status: Chronic Asessment and Plan: transaminases were elevated on admission but were declining through her hospital course but had not yet normalized. a follow up CMP should be done within a week to assess resolution of her transaminitis. (4) Sinusitis, acute: Status: Acute Asessment and Plan: Patient had symptoms of sinusitis and had failed outpatient treatment w/ Augmentin. She was sent home on a 5 day course of Levaquin and told to use OTC Afrin and Flonase (5) Macrocytic anemia: Status: Chronic Asessment and Plan: Likely d/t her alcohol effects on her bone marrow, however follow up CBC should be done as outpatient after some period of abstinence to see if this corrects. If this does not correct then further evaluation should be pursued including bon e marrow biopsy. (6) Hypomagnesemia: Status: Resolved Asessment and Plan: secondary to alcoholism. corrected w/ iv and po magnesium (7) Hypokalemia: Status: Resolved Asessment and Plan: secondary to alcoholism. this was corrected w/ iv and po potassium. repeat levels normal at discharge. Please followup w/ repeat labs in a week (8) HTN (hypertension): Status: Chronic Discharge Plan Disposition Patient Disposition: Home Condition: Good Discharge Details Reason For Visit: alcohol withdrawal, seizure Admit Date/Time: 04/03/23 19:58 Admit Provider: Dinesh Dias Attending Provider: Dinesh Dias Primary Care Provider: Marbella Phelps Home Meds and New Rx's Prescriptions: New levofloxacin 750 mg tablet 750 mg PO DAILY 5 Days Qty: 5 0RF Discharge Instructions Instructions: Alcohol Withdrawal (DC), Generalized Tonic Clonic Seizures (DC) Additional Instructions: Avoid swimming, tub baths, driving, any dangerous sports or activities that can potentially lead to injuries in the event of sudden loss of consciousness including but not limited to driving, motorcycle use, climbing up ladders and working on high spaces or cycling. Continue these precautions until you are cleared by your neurologist. You were treated for acute alcohol withdrawal causing seizures. You were treated w/ phenobarbital for the withdrawal and phenobarbital has a long half life. You were given a loading dose intravenously and the medication will be in your system for the next few days. We do not feel that you should need further phenobarbital. howevver it is important that you do not resume your consumption of alcohol even in small amounts nor even on occasions. You should also get into Alcoholic Anonymous or a similar alcohol abstinence support program. The [facility] director of home care hospice has a list of support coaches that can help you with your alcohol addiction. Becasue we did not have a neurologist available to review your case while you were hospitalized, we recommend outpatient follow up with our local neurologist, Dr. Gonzalez. Of course you may choose to follow with whomever you desire. WE see that your PCP is affiliated / [facility] and she may refer you to someone at [facility]. We would like for you to have a follow up EEG (brain wave scan) and an MRI of the brain. These should be done as outpatient since they are not available on the weekend otherwise these would have been done as inpatient. The EEG will show if there is any abnormal electrical activity that would suggest the substrate for further seizures and the MRI of the brain will exclude any underlying structural abnormalities that would predispose to future seizures, ie., rule out any aneurysm, tumor or multiple sclerosis. You did have a CT scan of the brain which was normal. We have not prescribed any anti-epileptic medications to take on a chronic basis as your seizures are due to acute alcohol withdrawal and as long as you do not return to drinking alcohol, you should not go through withdrawal again. You do have sinusitis and we have started you on Levaquin 750 mg. You should continue this for another 5 days. You may use Afrin and Flonase (both over the counter medications) which can be uses for nasal congestion. Referrals: Marbella Phelps [Primary Care Provider] - (requesting follow up in the next week for alcohol withdrawal seizures) Dionna Gonzalez MD [ [facility] STAFF PHYSICIAN] - (requesting urgent post hospital follow up regarding alcohol withdrawal seizure) Activity:: no driving Equipment/Supplies:: No Equipment Needed Diet:: Normal Diet Discharge Orders Discharge Orders: Discharge Order (Routine); Ordered 04/05/23 Ordered By: Elkin Ross Other Ambulatory Orders: EEG(Regular) (Routine) Timeframe: 1 Week Location: None Selected Ordered By: Elkin Ross MR brain wo (Routine) Timeframe: 1 Week Facility: [facility] - Location: DIAGNOSTIC IMAGING DEPT Ordered By: Elkin Ross Complete Blood Count w/Diff (Routine) Timeframe: 1 Week Facility: [facility] - Location: Laboratory Outpatient - [facility] Ordered By: Elkin Ross Comprehensive Metabolic Panel (Routine) Timeframe: 1 Week Facility: [facility] - Location: Laboratory Outpatient - [facility] Ordered By: Elkin Ross Discharge Data Discharge Date/Time-TO BE ENTERED AT DEPARTURE: 04/05/23 11:15 Discharge Comment: Home DS: Summary Time Spent with Patient providing and/or coordinating discharge services: Less than 30 minutes Specific discharge activities: Interview/exam of patient; review of discharge instructions, completion of prescriptions/discharge instructions; discussion w/ nursing and CM; documentation of hospital visit Status at Discharge Functional status at discharge: independent ambulation Overall status at discharge: patient is back to baseline Mental Status: mental status grossly normal Speech and Movement: speech and movement normal Mood: congruent mood Affect: normal affect Exam Narrative Exam Narrative: Kiko is alert and calm. No hallucinations, no tremors, no diaphoresis. CIWA scores have been zero. She is desiring to return home today. She inquired about having an Rx for couple of pills of phenobarbital. I have explained to her that she has been given a full loading dose of phenobarbital (10 mg/kg) adn that this will remain in her system for a few days and should not need further phenobarbital. I have also reviewd her need for outpatient neurology follow up and outpatient EEG and MRI of brain. Psych Mental Status: mental status grossly normal Speech and Movement: speech and movement normal Mood: congruent mood Affect: normal affect DS: Data Vitals/I&O Vitals and I&O: Vital Signs Temperature 36.8 C 04/05/23 07:45 Temperature Source Temporal Artery Scan 04/05/23 07:45 Pulse 97 H 04/05/23 08:00 Pulse 97 H 04/05/23 08:00 Respiratory Rate 19 04/05/23 08:00 Respiratory Effort Normal, Non-Labored 04/05/23 07:45 Respiratory Depth Normal 04/05/23 07:45 Respiratory Pattern Normal 04/05/23 07:45 Blood Pressure 120/83 04/05/23 08:00 Blood Pressure Mean 95 04/05/23 08:00 Blood Pressure Position Sitting 04/05/23 07:45 Pulse Oximetry 96 04/05/23 08:00 Oxygen Delivery Method Room Air 04/05/23 07:45 Oxygen Flow Rate 0 04/05/23 07:45 Pain Level 0 04/05/23 07:45 Comment 1 Liter Nasal Cannula 04/04/23 06:00 Intake & Output 04/04/23 04/04/23 04/05/23 11:59 23:59 11:59 Intake Total 1562.5847 / 2673.4770 1110.8923 / 2673.4770 290.8923 / 290.8923 Output Total 1000 / 1500 500 / 1500 200 / 200 Balance 562.5847 / 1173.4770 610.8923 / 1173.4770 90.8923 / 90.8923 Weight 67.2 kg Intake: IV 1262.5847 / 1313.4770 50.8923 / 1313.4770 50.8923 / 50.8923 Oral 300 / 1360 1060 / 1360 240 / 240 Output: Urine 1000 / 1200 200 / 1200 200 / 200 Stool 300 / 300 Other: Urine Color Pale Yellow Straw Yellow Urine Appearance Cloudy Clear Clear Urine Odor Normal None Normal Comment Device change due at 1100 04/04/2023. unable to measure volume d/t mixing with stool Patient voided in toilet at this time. Stool Size Moderate Stool Characteristics Liquid Voiding Methods Bedside Commode Data Completed and Pending Labs on day of discharge: Labs from last 24 hours 04/05/23 04/04/23 04/04/23 05:42 17:45 10:00 Sodium 137 Potassium 3.5 Chloride 105 Carbon Dioxide 24.0 Anion Gap 8.0 BUN 11 Creatinine 0.6 Est GFR (CKD-EPI 2020) 104.63 Glucose 121 H Calcium 8.5 Phosphorus 3.2 Total Bilirubin 0.8 AST 137 H ALT 70 H Alkaline Phosphatase 272 H Total Protein 7.1 Albumin 2.7 L Vitamin B12 441 Stl C.difficile Tox PCR Negative B. divergens/MO-1 PCR Pending Babesia duncani (PCR) Pending Babesia microti DNA PCR Pending Lyme Disease Antibody Pending E.chaffeensis DNA (PCR) Pending E.ewingii/canis DNA PCR Pending E.muris eauclairensis (PCR) Pending A. phagocytophilum (PCR) Pending Blood B. miyamotoi (PCR) Pending PFSH All Active Problems (Updated 04/06/23 @ 00:03 by NEHAL THOMAS) Sinusitis, acute (Acute) HTN (hypertension) (Chronic) Macrocytic anemia (Chronic) Alcoholic hepatitis without ascites (Chronic) Alcoholism with alcohol dependence (Chronic) Alcohol withdrawal seizure (Acute) Social History Smoking risk assessment performed?: No Alcohol Intake: current Alcohol Intake frequency: 3 or more drinks per day Alcohol type: hard liquor Drug use: Daily Substance use type: marijuana Housing: house Do you feel safe at home: No Do you feel safe in your relationship?: No Time Spent with Patient Time Spent with Patient: <45 minutes Time was spent: preparing to see the patient(eg.review tests), ordering medications,tests, procedures, referring, communicating with other health family member caretaker, indepentently interpreting results, counseling the patient and care coordination
--- NOTE | 2023-04-05 10:49 | CMDISCH_ITS ---
Date of service: 04/05/23 Time of Service: 10:49 LACE Index Scoring Tool Questions: Length of Stay (in days): 2 Was the patient admitted via the E.D.?: Yes Comorbidities: Liver or Renal Disease E.D. Visits: 0 Answers: Total Score: 10 Risk of Readmission: High Risk Care Management Discharge Plan Reason for Hospitalization: alcohol withdrawal seizure Discharge Plan: Radha will be discharged home with no new services when medic ally cleared. She will follow up with her community providers and plan of care and transport with family. Patient/Family Education Needs: Review discharge instructions, discuss Ask Me Three.
[2023-04-07 09:03] LABS: Transferrin 261 mg/dL (201-352)
[2023-04-07 11:27] LABS: Lyme Ab w Rflx to Lyme Confirm Negative (Negative)
[2023-04-08 15:45] LABS: Anaplasma phagocytophilum Negative (Negative); B. miyamotoi PCR Negative (Negative); Babesia divergens/MO-1 Negative (Negative); Babesia duncani Negative (Negative); Babesia microti Negative (Negative); Ehrlichia chaffeensis Negative (Negative); Ehrlichia ewingii/canis Negative (Negative); Ehrlichia muris eauclairensis Negative (Negative)
== END 2023-04-05 11:15 | disposition home or self-care (01) | DRG 897 ==
LOC: ER 20:24 → ICU 22:04
PROVIDERS: Internal Medicine; Registered Nurse Emergency; Admitting Provider Family Medicine; Emergency Provider Physician Assistant; PCP Physician Assistant Medical; Visit Provider Family Medicine
DX: F10.239 Alcohol dependence with withdrawal, unspecified (principal); I10 Essential (primary) hypertension; E83.42 Hypomagnesemia; R56.9 Unspecified convulsions; K70.10 Alcoholic hepatitis without ascites; J45.909 Unspecified asthma, uncomplicated; E87.6 Hypokalemia; J01.00 Acute maxillary sinusitis, unspecified; D53.9 Nutritional anemia, unspecified
CPT/HCPCS: 00123; 36415; 36416; 80048; 80053; 80076; 80307; 82805; 82962; 85027; 87493; 87635; 87798; 93005; 96361; 96365; 96366; 96368; 96372; 96375; 96376; 99291; J1650; 70450; 70486; 71046; 80320; 81003; 82607; 82728; 82746; 83540; 83550; 83735; 84100; 84443; 84466; 84484; 85025; 85610; 86618; 93010; 99223; 99233; 99239; G0378; J2060; J2560; J3475; J3490

== ENCOUNTER 2023-04-08 02:04 | Outpatient (CLI) | payer OTHER, SELFPAY ==
[2023-04-08 10:51] LABS: Abs Immature Grans 0.04 10^3/uL (0.0-0.06); Absolute Basophil Count 0.02 10^3/uL (0.0-0.2); Absolute Eosinophil Count 0.11 10^3/uL (0.0-0.7); Absolute Monocyte Count 0.53 10^3/uL (0.1-0.8); Absolute Neutrophil Count 5.41 10^3/uL (1.2-6.7); Basophils % 0.3; Eosinophils % 1.6; HCT 32.4 % (36.0-46.0); HGB 10.7 g/dL (11.2-15.7); Immature Grans % 0.6; Lymphocytes % 12.8; MCH 36.8 pg (27.0-33.0); MPV 10.2 fL (8.0-11.0); Monocytes % 7.6; Neutrophils % 77.1; Platelet Count 194 10^3/uL (130-400); RBC 2.91 10^6/uL (3.93-5.22); RDW 17.5 % (11.7-14.6); RDW-SD 73.4 fL; WBC 7.01 10^3/uL (4.4-10.8)
[2023-04-08 10:52] LABS: MCV 111 fL (80-95)
[2023-04-08 11:08] LABS: ALT 52 U/L (14-59); AST 65 U/L (15-37); Albumin 3.1 g/dL (3.4-5.0); Alkaline Phosphatase 265 U/L (46-116); Anion Gap 8.8 mmol/L (3-11); BUN 17 mg/dL (7-18); Bilirubin, Total 0.6 mg/dL (0.2-1.0); CO2 26.2 mmol/L (21.0-32.0); CREATININE 0.7 mg/dL (0.55-1.02); Calcium 9.3 mg/dL (8.5-10.1); Chloride 102 mmol/L (98-107); Estimated GFR 100.81 (mL/min/1.73m2); Glucose 119 mg/dL (74-106); Potassium 3.7 mmol/L (3.5-5.1); Sodium 137 mmol/L (136-145); Total Protein 7.5 g/dL (6.4-8.2)
== END 2023-04-08 02:05 | disposition home or self-care (01) ==
LOC: LBO 02:04
PROVIDERS: Internal Medicine; PCP Physician Assistant Medical; Visit Provider Physician Assistant Medical
DX: D53.9 Nutritional anemia, unspecified (principal); E87.6 Hypokalemia; K70.10 Alcoholic hepatitis without ascites
CPT/HCPCS: 36415; 80053; 85025

== ENCOUNTER 2023-04-08 02:56 | Outpatient (CLI) | payer OTHER, SELFPAY ==
--- NOTE | 2023-04-08 13:58 | PDOC.EEG_ITS ---
Neurology EEG EEG: [facility] Department of Neurology EEG REPORT Date of Recordin04/08/23 Interpreting Physician: Dr. Dionna Gonzalez PCP/Referring Provider: Dr. Elkin Ross Reason for study: Radha Bueno is a 57 year-old with recent ? seizure in the setting of ETOH reduction. Current Medications: Home Medications Medication Instructions Recorded Confirmed Type levofloxacin 750 mg tablet 750 mg PO DAILY 5 days #5 tabs 04/05/23 Rx amlodipine 5 mg-benazepril 20 mg 1 cap PO DAILY 04/08/23 History capsule atorvastatin 20 mg tablet 20 mg PO DAILY 04/08/23 History potassium chloride 10 mEq 10 meq PO DAILY 04/08/23 History capsule,extended release METHODS: A 21 channel digitized electroencephalogram was performed in the [facility] Clinical Neurophysiology Laboratory. The 10/20 international system of electrode placement was used and bipolar and referential electrode montages were recorded. In addition to EEG the patient was monitored for EKG and lateral/vertical eye movements. Activation procedures of photic stimulation and hyperventilation were performed if applicable. Video was used during activation procedures and during events where applicable. The duration of the recording was 30 minutes. DESCRIPTION OF EEG: The patient was noted to be awake , drowsy, and asleep during the recording. During maximal wakefulness a 12-13 Hz posterior background rhythm was present which was well-modulated, symmetrical, reactive to eye opening, and of moderate voltage. With eye opening the background activity changed to a low voltage mixture of alpha, beta, and occasional theta range frequencies. Faster frequencies were present in the bilateral anterior head regions. There was a normal anterior-posterior voltage gradient. During drowsiness, there was attenuation of the posterior dominant background rhythm and vertex waves. Stage II sleep was present with symmetrical sleep spindles, K-complexes, and vertex waves. Activating Procedures: Photic stimulation was performed which produced nol posterior driving response. Hyperventilation was stopped early so she could use her inhaler. EKG: EKG revealed normal sinus rhythm. INTERPRETATION: This EEG is normal during the awake and sleep states as well as during photic stimulation. PRIOR EEG: none CLINICAL CORRELATION: No focal regions of cerebral dysfunction or epileptiform activity was present. Epilepsy remains a clinical diagnosis and a normal EEG does not rule out epilepsy. Clinical correlation is advised. Dionna Gonzalez MD Date of service: 04/08/23 Coding
== END 2023-04-08 02:57 | disposition home or self-care (01) ==
LOC: RT 02:56
PROVIDERS: PCP Physician Assistant Medical; Visit Provider Internal Medicine
DX: R56.9 Unspecified convulsions (principal); F10.20 Alcohol dependence, uncomplicated
CPT/HCPCS: 95819

== ENCOUNTER 2023-06-27 15:56 | Outpatient (REF) | payer OTHER, SELFPAY ==
[2023-06-30 10:27] LABS: Lyme Ab w Rflx to Lyme Confirm Negative (Negative)
[2023-07-01 14:34] LABS: Anaplasma phagocytophilum Negative (Negative); B. miyamotoi PCR Negative (Negative); Babesia divergens/MO-1 Negative (Negative); Babesia duncani Negative (Negative); Babesia microti Negative (Negative); Ehrlichia chaffeensis Negative (Negative); Ehrlichia ewingii/canis Negative (Negative); Ehrlichia muris eauclairensis Negative (Negative)
== END 2023-06-27 15:57 | disposition home or self-care (01) ==
LOC: LBN 15:56
PROVIDERS: PCP Physician Assistant Medical; Visit Provider Physician Assistant Medical
DX: M25.59 Pain in other specified joint (principal)
CPT/HCPCS: 87798; 86618

== ENCOUNTER → 2023-07-14 04:20 | Outpatient (CLI) | payer OTHER, SELFPAY ==
--- NOTE | 2023-07-14 | DI.MRI_ITS ---
Exam(s) MR BRAIN WO EXAM: MR BRAIN WO CLINICAL HISTORY: SEIZURE TECHNIQUE: Multiplanar multisequence MRI of the brain was performed. COMPARISON: CT CT HEAD WO from 04/03/[address] SINUS WO from 04/04/2023 FINDINGS: VENTRICLES AND EXTRA AXIAL SPACES: Normal in size and morphology for the patient's age. MIDLINE SHIFT: None. CEREBRAL PARENCHYMA: No focus of restricted diffusion to suggest acute infarct. No space-occupying le silvia identified. There are few scattered foci of hyperintense signal in the white matter on the FLAIR and T2 weighted images likely reflecting small vessel ischemic disease. These are nonspecific. The temporal lobes are symmetric. They show normal signal and size. HEMORRHAGE: None. BRAINSTEM/CEREBELLUM: Normal. CALVARIUM: Normal. VISUALIZED PARANASAL SINUSES/MASTOIDS:There is a small mucous retention cysts in the left maxillary s inus. The remaining visualized paranasal sinuses are clear. POARCH OF DUMONT: Normal flow void. PITUITARY GLAND: Unremarkable. OTHER FINDINGS: None. IMPRESSION: 1. No intracranial mass or acute infarct. 2. There are few hyperintense white matter lesions seen which are nonspecific but may reflect early s mall vessel ischemic disease. DATA REPOSITORY:
== END ==
PROVIDERS: PCP Physician Assistant Medical; Visit Provider Family Medicine
DX: I67.82 Cerebral ischemia (principal)
CPT/HCPCS: 70551

== ENCOUNTER 2024-03-11 16:23 | Outpatient (REF) | payer OTHER, SELFPAY ==
--- OUTSIDE RECORDS SUMMARY | 2024-03-11 16:24 | XMS_ITS | Continuity of Care Document ---
Author Organization [facility] Address [address] [place] [id number] Care Team Providers Care Continuing Education Specialist Name Role Phone Yudy Hernandez Primary Care Physician Inocente augustin Encounter [facility] [id number] Date(s): 07/12/23 - 07/12/[address] [id number] Discharge Disposition: Home or Self Care Attending Physician: Yudy Hernandez Admitting Physician: Yudy Hernandez Referring Physician: Yudy Hernandez Results Laboratory List Name Date .Morphology ([facility]) 07/12/23 Ammonia Level 07/12/23 Automated Diff 07/12/23 CBC w/ Diff 07/12/23 Comprehensive Metabolic Panel 07/12/23 LDL Direct 07/12/23 Lactate Dehydrogenase 07/12/23 Lipid Panel 07/12/23 Magnesium Level 07/12/23 Miscellaneous Lab Test 07/12/23 PT 07/12/23 Most recent to oldest [Reference Range]: 1 WBC [4.80-10.80 x10^3/mcL] 4.82 x10^3/mc L (07/12/23 11:09 AM) RBC [3.90-5.03 x10^6/mcL] 3.69 x10^6/mcL *LOW* (07/12/23 11:09 AM) Neutro Auto [40.0-74.0 /100(WBCs)] 63.7 /100(WBCs) (07/12/23 11:09 AM) Lymph Auto [19.0-48.0 /100(WBCs)] 29.7 / 100(WBCs) (07/12/23 11:09 AM) Lares Auto [3.0-10.0 /100(WBCs)] 5.0 /100 (WBCs) (07/12/23 11:09 AM) Basophil Auto [0.00-2.00 /100(WBCs)] 0.6 0 /100(WBCs) (07/12/23 11:09 AM) Prothrombin Time [9.3-11.2 seconds] 11.2 seconds (07/12/23 11:09 AM) INR 1.1 *NA* (07/12/2309 AM) BUN [7-18 mg/dL] 20 mg/dL *HI* (07/12/23 11:09 AM) Cholesterol Total [<=200 mg/dL] 343 mg/d L *HI* (07/12/2309 AM) LDL [<=100 mg/dL] 140 mg/dL 1 *HI* (07/12/23 AM) Glucose Level [70-100 mg/dL] 119 mg/dL *HI* (07/12/23:09 AM) Potassium Level [3.5-5.1 mEq/L] 3.8 mEq/ L (07/12/23:09 AM) Baso Absolute [0.00-0.20 x10^3/mcL] 0.03 x10^3/mcL (07/12/23 11:09 AM) MCV [81.0-99.0 fL] 98.6 fL (07/12/23:09 AM) HDL [40-60 mg/dL] 48 mg/dL (07/12/23 11:09 AM) AST [15-37 unit/L] 94 unit/L *HI* (07/12/2309 AM) ALT [14-59 unit/L] 62 unit/L *HI* (07/12/23 1109 AM) MCHC [33.0-36.0 g/dL] 32.7 g/dL *LOW* (07/12/2309 AM) Sodium Level [136-145 mEq/L] 139 mEq/L (07/12/23 11:09 AM) Chol/HDL 7.15 ratio 2 *NA* (07/12/23 11:09 AM) Lymph Absolute [1.20-3.40 x10^3/mcL] 1.4 3 x10^3/mcL (07/12/23 11:09 AM) Hct [36.0-46.0 %] 36.4 % (07/12/23 11:09 AM) Triglycerides [30-150 mg/dL] 1316 mg/dL *HI* (07/12/23 11:09 AM) Calcium Level [8.5-10.1 mg/dL] 8.9 mg/dL (07/12/23 11:09 AM) Lares Absolute [0.11-0.70 x10^3/mcL] 0.24 x10^3/mcL (07/12/23 11:09 AM) Albumin Level [3.4-5.0 g/dL] 3.0 g/dL *LOW* (07/12/23) Protein Total [6.4-8.2 g/dL] 7.4 g/dL (07/12/23 11:09 AM) MCH [27.1-32.0 pg] 32.2 pg *HI* (07/12/23 11:09 AM) Magnesium Level [1.8-2.4 mg/dL] 1.5 mg/d L *LOW* (07/12/23 11:09 AM) Neutro Absolute [1.20-6.70 x10^3/mcL] 3. 07 x10^3/mcL (07/12/23 11:09 AM) Bilirubin Total [0.2-1.2 mg/dL] 0.7 mg/d L (07/12/23 11:09 AM) Hgb [12.0-15.5 g/dL] 11.9 g/dL *LOW* (07/12/23 AM) Alk Phos [55-142 unit/L] 226 unit/L *HI* (07/12/23 11:09 AM) LDH [81-234 IntlUnit/L] 182 IntlUnit/L (07/12/23 11:09 AM) MPV [6.0-10.0 fL] 9.5 fL (07/12/23 11:09 AM) Platelets [150-400 x10^3/mcL] 179 x10^3/ mcL (07/12/23 11:09 AM) CO2 [21-31 mEq/L] 26 mEq/L (07/12/23 11:09 AM) Eos Absolute [0.00-0.70 x10^3/mcL] 0.04 x10^3/mcL (07/12/23 11:09 AM) Ammonia Level [11-32 mcmol/L] 39 mcmol/L *HI* (07/12/23 11:09 AM) Anisocyte 2+ *ABN* (07/12/23 11:09 AM) eGFR Non-AA [>=60 mL/min/1.73 m2] 91 mL/ min/1.73 m2 (07/12/23 11:09 AM) eGFR AA [>=60 mL/min/1.73 m2] 110 mL/min /1.73 m2 (07/12/23 11:09 AM) Chloride Level [98-107 mEq/L] 102 mEq/L (07/12/23 11:09 AM) A/G Ratio 0.7 *NA* (07/12/23 11:09 AM) BUN/Creat Ratio 30 ratio *NA* (07/12/23 11:09 AM) Globulin 4.40 mg/dL *NA* (07/12/23 11:09 AM) Imm Gran Absolute [0.00-0.04 x10^3/mcL] 0.01 x10^3/mcL (07/12/23 11:09 AM) Imm Gran Auto 0.2 /100(WBCs) *NA* (07/12/23 11:09 AM) [facility] Lab Test Name vit b6 *NA* (07/12/23 11:09 AM) [facility] Lab Test Result See Scan Report (07/12/23 11:09 AM) Creatinine Level [0.55-1.02 mg/dL] 0.67 mg/dL (07/12/23 11:09 AM) RDW-CV [11.6-14.8 %] 24.6 % *HI* (07/12/23 11:09 AM) Anion Gap [5-15 mEq/L] 15 mEq/L (07/12/23 11:09 AM) Eos, Auto [1.0-7.0 /100(WBCs)] 0.8 /100( WBCs) *LOW* (07/12/23 11:09 AM) LDL, Direct [<=100 mg/dL] 145 mg/dL *HI* (2/17/24 11:09 AM) 1Interpretive Data: LDL Calculated 2Interpretive Data: Chol/HDL Risk Group Male Female Low 3.5-4.4 3.5-4.4 Average 4.5-6.4 4.5-5.5 High >6.4 >5.5 Social History Social History Type Response Sex Female Patient Care team information Care Team Personnel Name: Yudy Hernandez Position: No Access Member Role: Primary Care Physician Care Team Related Persons Name: ALFREDO DUNN Address: Home [address] [place], [address]
--- OUTSIDE RECORDS SUMMARY | 2024-03-11 16:24 | XMS_ITS | Clinical Summary ---
Author Organization [facility] [place] [address] Care Team Providers Care Planting Material Unloader Name Role Phone Yudy Hernandez MD Primary Care Provider [phone] Allergies Active Allergy Reactions Criticality Noted Date Comments Unclassified Drug 07/23/2018 Pet Dander Medications Medication Sig Dispensed Refills Start Date End Date Status amLODIPine-benazepri l (LOTREL) 5-20 mg Capsule Take 1 capsule by mouth daily. 04/06/2018 Active VENTOLIN HFA 90 mcg/actuation HFA Aerosol Inhaler 04/06/2018 Active ranitidine (ZANTAC) 150 mg Tablet Take 1 tablet by mouth 2 times daily. 180 tablet 3 07/23/2018 Active naproxen sodium (ALEVE) 220 mg Capsule Take by mouth. Pt taking two tablets once a day Active potassium chloride ER (K-Dur/Klor-Con) 10 mEq Tablet Sustained Release take 1 tablet by mouth once daily 01/18/2021 Active atorvastatin (Lipitor) 20 mg Tablet take 1 tablet by mouth every evening 01/17/2021 Active cyclobenzaprine (Flexeril) 10 mg tablet 07/31/2023 Active Active Problems Problem Noted Date Diagnosed Date Chest pain, unspecified 01/17/2021 Bilateral chronic knee pain 04/05/2020 Encounters Date Type Department Care Team Description 01/21/2024 9:30 AM EDT Clinical Support [place] [address] [place], NINA Perdomo Osteoarthritis of both knees, unspecified osteoarthritis type 01/21/2024 Travel 12/16/2023 [place] [address] [place], NIAN Perdomo from Last 3 Months Family History Medical History Relation Comments Anesthesia Reaction Neg Hx Breast Cancer Neg Hx Social History Tobacco Use Types Packs/Day Years Used Date Smoking Tobacco: Former Smokeless Tobacco: Never Comments:Only as a teenager Alcohol Use Standard Drinks/Week Comments Yes 0 (1 standard drink = 0.6 oz pur e alcohol) 2-3 cocktails per day Sex and Gender Information Value Date Recorded Sex Assigned at Not on file Gender Identity Not on file Sexual Orientation Not on file Last Filed Vital Signs Vital Sign Reading Time Taken Comments Blood Pressure 105/77 07/16/2021 2:57 PM EST Pulse 98 07/16/2021 2:57 PM EST Temperature - - Respiratory Rate - - Oxygen Saturation 99% 01/25/2021 11:06 AM EDT Inhaled Oxygen Concentration - - Weight 67.1 kg (148 lb) 01/21/2024 9:08 AM EDT Height 167.6 cm (5' 6) 01/21/2024 9:08 AM EDT Body Mass Index 23.89 01/21/2024 9:08 AM EDT Plan of Treatment Health Maintenance Due Date Last Done Comments CT Colonography 1965 Colonoscopy 1965 Colorectal Cancer Screening 1965 FIT DNA 1965 FIT 1965 Sigmoidoscopy (10 year) with FIT yearly 1965 Sigmoidoscopy 1965 Hepatitis B vaccine (0-59 yrs) (1) 1984 Tetanus/Diphtheria/Pertussis Vaccines (1 - Tdap) 1984 HPV test 10/21/1995 PAP Smear 10/21/1995 Breast Cancer Share Decision Needed 2005 Zoster vaccine (1 of 2) 10/21/2015 Advance Directive 2020 Breast Cancer screening 12/01/2021 12/02/2019, 10/30 Covid-19 Vaccine (1 - season) 2024 Influenza (Flu) vaccine (1 o f 1 - Influenza standard series) 01/25/2024 Diabetes Screening (HgbA1C or Glucose) Discontinued HIV screen Completed 07/23/2018 Hepatitis C Screening Completed 07/23/2018 Procedures Procedure Name Priority Date/Time Associated Diagnosis Comments MAMMO SCREENING CAD AND CLEOPATRA BILATERAL Routine 12/02/2019 10:53 AM EDT Visit for screening mammogram HIV SCREEN, 4TH GENERATION ([facility]/CGP/APD/[facility]) Routine 07/23/2018 5:32 PM EST Elevated liver enzymes HEPATITIS C ANTIBODY Routine 07/23/2018 5:32 PM EST Elevated liver enzymes COMPREHENSIVE METABOLIC PANEL Routine 07/23/2018 5:32 PM EST Elevated liver enzymes from Last 3 Months or Most Recently Relevant to Health Maintenance Results * Mammo Screening Cad and Cleopatra Bilateral (12/02/2019 10:53 AM EDT) Anatomical Region Laterality Modality Breast Bilateral Mammography Narrative 12/02/2019 11:16 AM EDT BILATERAL MAMMOGRAPHY REASON FOR EXAM: Screening TECHNIQUE: CC and MLO views were obtained of each breast using standard 2-D mammography as well as 3-D tomosynthesis. Computer aided detection was used. This is compared with prior images. FINDINGS: ??The breasts are heterogeneously dense, which may obscure small masses. There are no suspicious microcalcifications, masses, or areas of distortion. The pattern is stable. CONCLUSION: No mammographic evidence of malignancy. RECOMMENDATION: Regular screening mammograms starting between age 40 and 50 reduces the risk of from breast cancer. All screening tests have both risks and benefits. These risks and benefits should be assessed for each individual patient through discussion with their provider to determine their preferred breast cancer screening schedule. Women should report any breast changes to a health care provider right away. Some women, because of their family history, a genetic tendency, or other factors, should be screened with annual breast MRI as well as with mammograms. (The number of women who fall into this category is very small). Patients and health care providers should discuss each patient? s history to decide if earlier screening and/or breast MRI are appropriate. Screening should continue as long as a woman is in good health and is expected to live 10 years or longer. Screening mammography may not detect 10-15% of breast cancers. A result letter has been sent to this patient by the [facility]. BIRADS CATEGORY 1: NEGATIVE Marbella WOOD IMG MAMMO ORDERABLES * Hepatitis C Antibody (07/23/2018 5:32 PM EST) Hepatitis C Antibody Negative Negative [facility] Blood specimen (specimen) 07/23/2018 5:32 PM EST 07/23/2018 5:40 PM EST Narrative Resulting Agency Comment Spec In Lab Melania Stephen MD CHEMISTRY ORDERABLES Performing Organization Address City/[facility]/ZIP Co de Phone Number [facility] [place] [address] * HIV Screen, 4th Generation (07/23/2018 5:32 PM EST) Pathologist [facility] HIV Ab/Ag Screen Negative Negative [facility] Comment: This 4th Generation HIV test screens for the presence of the HIV-1 p24 antigen as well as antibodies reactive against HIV-1 and HIV-2. A negative screen does not rule out an acute HIV infection. If acute HIV infection is suspected, testing should be repeated in 2 - 3 weeks or HIV nucleic acid testing performed. Blood specimen (specimen) 07/23/2018 5:32 PM EST 07/23/2018 5:40 PM EST Narrative Resulting Agency Comment Spec In Lab Melania Stephen MD CHEMISTRY ORDERABLES Performing Organization Address City/[facility]/ZIP Co de Phone Number [facility] [place] [address] * (ABNORMAL) Comprehensive metabolic panel (non-fasting) (07/23/2018 5:32 PM EST) Pathologist [facility] Glucose 89 65 - 199 mg/dL [facility] Comment:Diabetes: >=200 mg/d L plus symptoms Blood Urea Nitrogen 17 8 - 18 mg/dL [facility] Creatinine 0.58(L) 0.70 - 1.20 mg/dL [facility] Sodium 137 135 - 145 mmol/L [facility] Potassium 3.7 3.5 - 5.0 mmol/L [facility] Comment: Please note: ??Patients with WBC >100,000 may have falsely elevated Potassium levels. ??For accurate Potassium quantification in these patients send serum separator tube (gold top) for subsequent determinations. ??Contact the Clinical Chemistry Laboratory if there are any questions. Chloride 96(L) 98 - 107 mmol/L [facility] Carbon Dioxide 21(L) 22 - 31 mmol/L [facility] Anion Gap 20(H) 5 - 15 mmol/L [facility] Calcium 8.9 8.5 - 10.5 mg/dL [facility] Protein, Total 7.4 6.1 - 8.0 gm/dL [facility] Albumin 3.8 3.2 - 5.2 gm/dL [facility] Aspartate Aminotransferase 5 0 - 30 unit/L [facility] Alanine Aminotransferase 5 0 - 30 unit/L [facility] Alkaline Phosphatase 76 40 - 104 unit/L [facility] Bilirubin, Total 0.4 0.2 - 1.3 mg/dL [facility] Est Glomerular Filtration Rate 106 >=60 mL/min/1. 73 m?? [facility] Comment: The eGFR was calculated using the CKD-EPI equation. As with all creatinine based estimates of kidney function, eGFR values calculated with the CKD-EPI equation are not accurate in patients with acute kidney failure, extremes of body mass or the acutely ill. [email or web address] eGFR 123 >=60 mL/min/1. 73 m?? [facility] Comment: The eGFR was calculated using the CKD-EPI equation. As with all creatinine based estimates of kidney function, eGFR values calculated with the CKD-EPI equation are not accurate in patients with acute kidney failure, extremes of body mass or the acutely ill. [email or web address] Blood specimen (specimen) 07/23/2018 5:32 PM EST 07/23/2018 5:40 PM EST Narrative Resulting Agency Comment Spec In Lab Melania Stephen MD CHEMISTRY ORDERABLES [facility] [place] [address] from Last 3 Months or Most Recently Relevant to Health Maintenance Care Teams Planting Material Unloader Relationship Specialty Start Date End Date Yudy Hernandez MD [address] [place] [id number] PCP - General Family Medicine 08/05/23
--- OUTSIDE RECORDS SUMMARY | 2024-03-11 16:25 | XMS_ITS | Encounter Summary ---
Author Organization [facility] Address [facility] [place] [address] Care Team Providers Care Oleomargarine Maker Name Role Phone Marbella Francisco Primary Care Provider [phone] Encounter Details Date Type Department Care Team (Latest Contact Info) Description 09/30/2018 9:29 AM EDT - 09/30/2018 11:59 PM EDT Hospital Encounter XRay at [address] [place] [address] Sharad Hoffman MD [facility] [place] [address] Bilateral hand pain Discharge Disposition: Home Social History Tobacco Use Types Packs/Day Years Used Date Smoking Tobacco: Former Smokeless Tobacco: Never Comments:Only as a teenager Sex and Gender Information Value Date Recorded Sex Assigned at Not on file Gender Identity Not on file Sexual Orientation Not on file documented as of this encounter Medications at Time of Discharge Medication Sig Dispensed Refills Start Date End Date amLODIPine-benazepril (LOTREL) 5-20 mg Capsule Take 1 capsule by mouth daily. 04/06/2018 VENTOLIN HFA 90 mcg/actuation HFA Aerosol Inhaler 04/06/2018 ranitidine (ZANTAC) 150 mg Tablet Take 1 tablet by mouth 2 times daily. 180 tablet 3 07/23/2018 documented as of this encounter Plan of Treatment Not on file documented as of this encounter Procedures Procedure Name Priority Date/Time Associated Diagnosis Comments XR HAND MIN 3 VIEWS BILAT Routine 09/30/2018 9:45 AM EDT Bilateral hand pain documented in this encounter Results * XR Hand Min 3 views Bilat (Generic) (09/30/2018 9:45 AM EDT) Anatomical Region Laterality Modality Hand Bilateral Digital Radiogra phy Impressions 09/30/2018 2:10 PM EDT 1. ??No erosions. 2. ??Small osteophytes arising from bilateral basal joints with minimal joint space narrowing. Thank you for letting us participate in the care of this patient. For questions regarding this report, please contact the number below. ? Narrative 09/30/2018 2:10 PM EDT EXAMINATION: XR HAND MIN 3 VIEWS BILAT (GENERIC) CLINICAL HISTORY: Bilat hand pain, ,entered by ordering service TECHNIQUE: 4 views each COMPARISON: None FINDINGS: BONES : Normal bone mineralization. No ankylosis or periostitis. SOFT TISSUES: Symmetric soft tissues. Left -2 well corticated bone densities projected in soft tissues distal to the left pisotriquetral joint. These may represent small intra-articular bodies or soft tissue ossifications. JOINTS: 2-5 IP joints- preserved joint spaces and no erosions. Small well-corticated bone density projected in the volar soft tissues of the right fourth DIP joint. This could be related to old avulsion injury. The alignment at fourth DIP joint is normal. No large osteophytes. 2-5 MCP joints- normal joint spaces and no erosions. Thumb (Basal, scaphoid trapezial trapezoid [STT] and 1 MCP & 1 IP joints)- bilateral small osteophytes arising from the basal joints. Preserved basal joint spaces. Normal STT joints. Radial carpal joint- normal alignment and no erosions Distal radioulnar joint - congruent. Procedure Note Asha Ellis MD - 09/30/2018 EXAMINATION: XR HAND MIN 3 VIEWS BILAT (GENERIC) CLINICAL HISTORY: Bilat hand pain, ,entered by ordering service TECHNIQUE: 4 views each COMPARISON: None FINDINGS: BONES : Normal bone mineralization. No ankylosis or periostitis. SOFT TISSUES: Symmetric soft tissues. Left -2 well corticated bone densities projected in soft tissues distal tothe left pisotriquetral joint. These may represent small intra-articularbodies or soft tissue ossifications. JOINTS: 2-5 IP joints- preserved joint spaces and no erosions. Smallwell-corticated bone density projected in the volar soft tissues of the right fourth DIPjoint. This could be related to old avulsion injury. The alignment at fourth DIPjoint is normal. No large osteophytes. 2-5 MCP joints- normal joint spaces and no erosions. Thumb (Basal, scaphoid trapezial trapezoid [STT] and 1 MCP & 1 IPjoints)- bilateral small osteophytes arising from the basal joints. Preserved basaljoint spaces. Normal STT joints. Radial carpal joint- normal alignment and no erosions Distal radioulnar joint - congruent. IMPRESSION 1. No erosions. 2. Small osteophytes arising from bilateral basal joints with minimaljoint space narrowing. Thank you for letting us participate in the care of this patient. Forquestions regarding this report, please contact the number below. Electronically signed by: Asha Ellis [facility]([phone]), at 09/30/2018 2:10 PM Sharad Hoffman MD IMG DX ORDERABLES documented in this encounter Visit Diagnoses Diagnosis Bilateral hand pain Pain in limb documented in this encounter Care Teams Oleomargarine Maker Relationship Specialty Start Date End Date Marbella Francisco PA [address] [place] [id number] PCP - General Family Medicine 07/23/18 08/04/23 documented as of this encounter
--- OUTSIDE RECORDS SUMMARY | 2024-03-11 16:25 | XMS_ITS | Encounter Summary ---
Author Organization [facility] [place] [address] Care Team Providers Care Control Panel Assembler Name Role Phone Marbella Francisco Primary Care Provider Reason for Visit * Reason Onset Date Comments Results 06/09/2020 Encounter Details Date Type Department Care Team (Late st Contact Info) Description 06/09/2020 Telephone [place] [phone] Alberta Nguyen [facility] [place] [address] Results Social History Tobacco Use Types Packs/Day Years Used Date Smoking Tobacco: Former Smokeless Tobacco: Never Comments:Only as a teenager Sex and Gender Information Value Date Recorded Sex Assigned at Not on file Gender Identity Not on file Sexual Orientation Not on file documented as of this encounter Miscellaneous Notes * Telephone Encounter - Beatrice Tong RMA - 06/12/2020 1:57 PM EST Radha called and and I read to her the message from Sunita nguyen SLOT OPERATIONS MANAGER.. Call was sent to [facility] appt with Dr Godinez as per Sunita's request. * Telephone Encounter - Alberta Nguyen APRN - 06/09/2020 12:26 PM EST Called with MRI scan results. Message left to call me back to discuss results. If i'm not availableok for Nursing to review results. She could leave best time for me to call back. We can try a synvisc injection for mild OA and denerative meniscus tear. If the medial sided knee pain and mechanical complaints are the main concern consider arthroscopy. Would need to come in for eval with Dr. Godinez. FINDINGS: Menisci Medial meniscus: Complex horizontal and radial tear of the posterior horn medial meniscus, with 6 mm of meniscal extrusion into the medial gutter. Lateral meniscus: Normal. ?? Ligaments ACL: Normal PCL: Normal MCL: Normal LCL complex: Normal ?? Tendons Quadriceps: Normal Patellar: Normal Popliteus: Normal ?? Bones: No fracture or bone marrow edema. ?? Cartilage Patellofemoral: Full-thickness cartilage loss of the medial patellar facet with deep fissuring of the lateral patellar facet cartilage. Medial tibiofemoral: Near full-thickness cartilage loss of the medial tibial plateau Lateral tibiofemoral: Normal ?? Joint effusion: Moderate size knee joint effusion with synovitis and lipoma arborescens. Hernandes's cyst: Approximately 4.6 cm in craniocaudal length bilobed Hernandes's cyst. ?? Mild prepatellar soft tissue edema. ?? IMPRESSION 1. Complex tear of the posterior horn right medial meniscus with extrusion into the medial gutter. 2. Moderate-sized knee joint effusion with synovitis. 3. Moderate-sized Hernandes's cyst. 4. Diffuse cartilage loss of the medial tibial plateau and medial patellar facet. No insufficiency fracture. ?? documented in this encounter Plan of Treatment Not on file documented as of this encounter Visit Diagnoses Not on filedocumented in this encounter Care Teams Control Panel Assembler Relationship Specialty Start Date End Date Marbella Francisco PA [address] [place] [id number] PCP - General Family Medicine 07/23/18 08/04/23 documented as of this encounter
--- OUTSIDE RECORDS SUMMARY | 2024-03-11 16:25 | XMS_ITS | Encounter Summary ---
[place] [address] Care Team Providers Care Licensed Esthetician Name Role Phone Marbella Francisco Primary Care Provider [phone] Encounter Details Date Type Department Care Team (Late st Contact Info) Description 07/16/2022 Interpretation Only [address] [phone] Sadiq Hernadez, DO [address] [place] [address] Social History Tobacco Use Types Packs/Day Years [...] on file documented as of this encounter Plan of Treatment Not on file documented as of this encounter Procedures Procedure Name Priority Date/Time Associated Diagnosis Comments XR CHEST ONE VIEW STAT 07/16/2022 8:4 2 PM EST documented in this encounter Results * XR Chest One View (07/16/2022 8:42 PM EST) PT CLASS E RAD ADMITDTTM RAD PT RAD MD INFO [id number]^S JOSELO^MAG ARIZMENDI RAD EXAM DESC XCXR1^XR CHEST 1 VIEW^RIS RAD Anatomical Region Laterality Modality Chest N/A Radiographic Jen ging Impressions 07/16/2022 8:45 PM EST Negative portable chest x-ray. Thank you for letting us participate in the care of this patient. ??If you are a health care provider and have any questions regarding this report, please contact the number below. ??For patients who have questions please contact the health long term care pharmacist that requested your imaging first. ? Narrative 07/16/2022 8:45 PM EST EXAMINATION: XR CHEST 1 VIEW CLINICAL HISTORY: Chest Pain TECHNIQUE: Portable chest x-ray COMPARISON: August 02, 2019 FINDINGS: No pneumothorax. No pleural effusion. No consolidation. No mass. Cardiac, mediastinal and hilar contours are within normal limits. No displaced rib fracture. Procedure Note Melania Morel MD - 07/16/2022 EXAMINATION: XR CHEST 1 VIEW CLINICAL HISTORY: Chest Pain TECHNIQUE: Portable chest x-ray COMPARISON: August 02, 2019 FINDINGS: No pneumothorax. No pleural effusion. No consolidation. No mass.Cardiac, mediastinal and hilar contours are within normal limits. No displacedrib fracture. IMPRESSION Negative portable chest x-ray. Thank you for letting us participate in the care of this patient. If youare a health care provider and have any questions regarding this report,please contact the number below. For patients who have questions please contactthe health long term care pharmacist that requested your imaging first. Sadiq Hernadez DO IMG DX ORDERABL ES documented in this encounter Visit Diagnoses Not on filedocumented in this encounter Care Teams Licensed Esthetician Relationship Specialty Start Date End Date Marbella Francisco PA [address] [place] [id number] PCP - General Family Medicine 07/23/18 08/04/23 documented as of this encounter
--- OUTSIDE RECORDS SUMMARY | 2024-03-11 16:25 | XMS_ITS | Encounter Summary ---
[place] [address] Care Team Providers Care Jailer Name Role Phone Marbella Francisco Primary Care Provider Encounter Details Date Type Department Care Team (Late st Contact Info) Description 03/06/2021 [place] [phone] Myriam Cabrera RMA Social History Tobacco Use Types Packs/Day Years Used Date Smoking Tobacco: Former Smokeless Tobacco: Never Comments:Only as a teenager Sex and Gender Information Value Date Recorded Sex Assigned at Not on file Gender Identity Not on file Sexual Orientation Not on file documented as of this encounter Plan of Treatment Not on file documented as of this encounter Results * XR Knee 1-2 Views Right (Generic) (06/27/2021 10:16 AM EST) Anatomical Region Laterality Modality Knee Right Digital Radiogra phy Impressions 06/27/2021 2:13 PM EST Moderate right greater than left medial compartment predominant knee osteoarthropathy. I have personally reviewed the image(s) and the resident's interpretation and agree with the findings, Sherin Candelario MD at 06/27/2021 2:13 PM Thank you for letting us participate in the care of this patient. ??If you are a health care provider and have any questions regarding this report, please contact the number below. ??For patients who have questions please contact the health healthcare educator that requested your imaging first. ? Electronically signed by: Sherin Candelario MD, [facility] ([phone]), at 06/27/2021 2:13 PM Narrative 06/27/2021 2:13 PM EST EXAMINATION: XR KNEE 1-2 VIEWS RIGHT (GENERIC) CLINICAL HISTORY: R knee pain, hx meniscus tear TECHNIQUE: 2 views RIGHT knee COMPARISON: Knee MRI 06/08/2020 FINDINGS: No fracture or dislocation. There is moderate right greater than left medial compartment joint space narrowing as well as tricompartmental osteophytes. Small right knee joint effusion. Procedure Note Sherin Candelario MD - 06/27/2021 EXAMINATION: XR KNEE 1-2 VIEWS RIGHT (GENERIC) CLINICAL HISTORY: R knee pain, hx meniscus tear TECHNIQUE: 2 views RIGHT knee COMPARISON: Knee MRI 06/08/2020 FINDINGS: No fracture or dislocation. There is moderate right greater than leftmedial compartment joint space narrowing as well as tricompartmental osteophytes.Small right knee joint effusion. IMPRESSION Moderate right greater than left medial compartment predominant knee osteoarthropathy. I have personally reviewed the image(s) and the resident's interpretationand agree with the findings, Sherin Candelario MD at 06/27/2021 2:13 PM Thank you for letting us participate in the care of this patient. If youare a health care provider and have any questions regarding this report,please contact the number below. For patients who have questions please contactthe health healthcare educator that requested your imaging first. Electronically signed by: Sherin Candelario MD, [facility]([phone]), at 06/27/2021 2:13 PM Saulo Godinez MD IMG DX ORDERABLES documented in this encounter Visit Diagnoses Diagnosis Tear of medial meniscus of right knee, unspecified tear type, unspecified whether old or current tear, subsequent encounter Knee effusion, right Effusion of lower leg joint Acute pain of right knee Pes anserine bursitis Pes anserinus tendinitis or bursitis Tear of medial meniscus of right knee, unspecified tear type, unspecified whether old or current tear, subsequent encounter Knee effusion, right Effusion of lower leg joint Acute pain of right knee Pes anserine bursitis Pes anserinus tendinitis or bursitis documented in this encounter Care Teams Jailer Relationship Specialty Start Date End Date Rodrick-Marbella Leung PA [address] [place] [id number] PCP - General Family Medicine 07/23/18 08/04/23 documented as of this encounter
--- OUTSIDE RECORDS SUMMARY | 2024-03-11 16:25 | XMS_ITS | Encounter Summary ---
Author Organization [facility] Address [facility] [place] [address] [place] [address] Care Team Providers Care Acetylene Plant Operator Name Role Phone Marbella Francisco Primary Care Provider Encounter Details Date Type Department Care Team (Latest Contact Info) Description 10/30/2018 1:31 PM EDT - 10/30/2018 11:59 PM EDT Hospital Encounter XRay at [address] [place] [phone] Sharad Hoffman MD [facility] [place] [address] Arthritis of carpometacarpal (CMC) joint of both thumbs Discharge Disposition: Home Social History Tobacco Use Types Packs/Day Years Used Date Smoking Tobacco: Former Smokeless Tobacco: Never Comments:Only as a teenager Sex and Gender Information Value Date Recorded Sex Assigned at Not on file Gender Identity Not on file Sexual Orientation Not on file documented as of this encounter Discharge Instructions * Patient Instructions* Renetta Hernandes - 10/30/2018 2:38 PM EDT Post Injection Patient Injections You received an injection by Sary Maldonado APRN in the diagnostic section of radiology. Procedure: Bilateral Thumb Injection In the days following the injection: ??? Low intensity movement and exercise of the affected joint. ??? Avoid movements that worsen pain. During the first 48 hours following the injection you may experience mild discomfort at the injection site. If you experience pain or discomfort in the affected area, do the following: ??? Apply cold compress to the affected area. ??? If allowed by your physician, take an anti-inflammatory medication such as ibuprofen (example: Advil), Acetaminophen 9example: Tylenol) or Aspirin. IMPORTANT The risk of infection exists whenever the skin is punctured. The risk can be minimized by keeping the injection site clean. However, be aware of the following signs of an infection: ??? Redness and swelling at the injection site. ??? Increased pain. ??? Fever and/or chills. ??? Decreased range of motion in the joint near the injection site. If you experience any of the signs of infection listed above, telephone the diagnostic section of radiology at [phone]. documented in this encounter Medications at Time of Discharge [...] Name Priority Date/Time Associated Diagnosis Comments XR FLUORO INJECTION DRAINAGE JOINT SM RIGHT Routine 10/30/2018 2:39 PM EDT Arthritis of carpometacarpal (CMC) joint of both thumbs XR FLUORO INJECTION DRAINAGE JOINT SM LEFT Routine 10/30/2018 2:39 PM EDT Arthritis of carpometacarpal (CMC) joint of both thumbs documented in this encounter Results * XR Fluoro Guided Joint Injection Small Left (10/30/2018 2:39 PM EDT) Anatomical Region Laterality Modality Left Radio Fluoroscop y Impressions 10/30/2018 3:27 PM EDT Uneventful left thumb cmc joint injection under fluoroscopy. Resident/ Fellow: None Attending: There was no attending present for this procedure Procedure performed by Sary Maldonado APRN Thank you for letting us participate in the care of this patient. For questions regarding this report, please contact the number below. ? Narrative 10/30/2018 3:27 PM EDT HISTORY: Left thumb pain and arthritis. LEFT THUMB CMC JOINT ??INJECTION UNDER FLUOROSCOPY TECHNIQUE: After an extensive conversation with the patient regarding risks and benefits, oral and written consent were obtained.? A pre- procedural time-out was performed, including review of the patient's relevant electronic medical record and allergies, as per [facility] protocol. The patient was placed supine on the fluoroscopic table. ??The skin overlying the left thumb cmc joint was prepped and draped in the usual aseptic manner. 1% Lidocaine was used to achieve local anesthesia. Under fluoroscopic guidance, a 25-gauge 5/8 inch needle was advanced into the joint space. ??Small amount of air was injected to document needle placement. ??A mixture of Ropivacaine and depomedrol was injected. All needles removed at end of procedure. FINDINGS: 1. ??Small amount of injected air in the joint space. 2. ??PAIN SCORE: ??Before: 6/10 ??After: ??4/10 3. Fluoroscopy time: 0.05 minutes 4. Medications: ??Lidocaine 1% - <5 ml, for subcutaneous anesthesia ?? A mixture composed of the following medication was prepared: Ropivacaine HCL ??0.5% -0.5 ml (2.5mg) methylPREDNISolone acetate 40: 40 mg Total injected volume: 0.75ml COMPLICATIONS: None immediate. POST-PROCEDURE CARE: Information regarding monitor of infection, post- procedural pain and management of steroid flare were reviewed with patient. Procedure Note Sary Maldonado APRN - 10/30/2018 HISTORY: Left thumb pain and arthritis. LEFT THUMB CMC JOINT INJECTION UNDER FLUOROSCOPY TECHNIQUE: After an extensive conversation with the patient regarding risks andbenefits, oral and written consent were obtained.? A pre- procedural time-out was performed, including review of the patient's relevant electronic medicalrecord and allergies, as per [facility] protocol. The patient was placed supine on the fluoroscopic table. The skinoverlying the left thumb cmc joint was prepped and draped in the usual aseptic manner.1% Lidocaine was used to achieve local anesthesia. Under fluoroscopicguidance, a 25-gauge 5/8 inch needle was advanced into the joint space. Small amountof air was injected to document needle placement. A mixture of Ropivacaine and depomedrol was injected. All needles removed at end of procedure. FINDINGS: 1. Small amount of injected air in the joint space. 2. PAIN SCORE: Before: 6/10 After: 4/10 3. Fluoroscopy time: 0.05 minutes 4. Medications: Lidocaine 1% - <5 ml, for subcutaneous anesthesia A mixture composed of the following medication was prepared: Ropivacaine HCL 0.5% -0.5 ml (2.5mg) methylPREDNISolone acetate 40: 40 mg Total injected volume: 0.75ml COMPLICATIONS: None immediate. POST-PROCEDURE CARE: Information regarding monitor of infection, post- procedural pain and management of steroid flare were reviewed withpatient. IMPRESSION Uneventful left thumb cmc joint injection under fluoroscopy. Resident/ Fellow: None Attending: There was no attending present for this procedure Procedure performed by Sary Maldonado APRN Thank you for letting us participate in the care of this patient. Forquestions regarding this report, please contact the number below. Sharad Hoffman MD IMG FLUORO ORDERABLE S * XR Fluoro Guided Joint Injection Small Right (10/30/2018 2:39 PM EDT) Anatomical Region Laterality Modality Right Radio Fluoroscop y Impressions 10/30/2018 3:25 PM EDT Uneventful right thumb cmc joint injection under fluoroscopy. Resident/ Fellow: None Attending: There was no attending present for this procedure Procedure performed by Sary Maldonado APRN Thank you for letting us participate in the care of this patient. For questions regarding this report, please contact the number below. ? Narrative 10/30/2018 3:25 PM EDT HISTORY: Right thumb pain and arthritis RIGHT THUMB CMC JOINT ??INJECTION UNDER FLUOROSCOPY TECHNIQUE: After an extensive conversation with the patient regarding risks and benefits, oral and written consent were obtained.? A pre- procedural time-out was performed, including review of the patient's relevant electronic medical record and allergies, as per [facility] protocol. The patient was placed supine on the fluoroscopic table. ??The skin overlying the right thumb cmc joint was prepped and draped in the usual aseptic manner. 1% Lidocaine was used to achieve local anesthesia. Under fluoroscopic guidance, a 25-gauge 5/8 inch needle was advanced into the joint space. ??Small amount of air was injected to document needle placement. ??A mixture of Ropivacaine and depomedrol was injected. All needles removed at end of procedure. FINDINGS: 1. ??Small amount of injected air in the joint space. 2. ??PAIN SCORE: ??Before: 10 ??After: ??/10 3. Fluoroscopy time: 0.22 minutes 4. Medications: ??Lidocaine 1% - <5 ml, for subcutaneous anesthesia ?? A mixture composed of the following medication was prepared: Ropivacaine HCL ??0.5% - 0.5 ml (2.5mg) methylPREDNISolone acetate 40: 40 mg Total injected volume: 0.5ml COMPLICATIONS: None immediate. POST-PROCEDURE CARE: Information regarding monitor of infection, post- procedural pain and management of steroid flare were reviewed with patient. Procedure Note Sary Maldonado APRN - 10/30/2018 HISTORY: Right thumb pain and arthritis RIGHT THUMB CMC JOINT INJECTION UNDER FLUOROSCOPY TECHNIQUE: After an extensive conversation with the patient regarding risks andbenefits, oral and written consent were obtained.? A pre- procedural time-out was performed, including review of the patient's relevant electronic medicalrecord and allergies, as per [facility] protocol. The patient was placed supine on the fluoroscopic table. The skinoverlying the right thumb cmc joint was prepped and draped in the usual aseptic manner.1% Lidocaine was used to achieve local anesthesia. Under fluoroscopicguidance, a 25-gauge 5/8 inch needle was advanced into the joint space. Small amountof air was injected to document needle placement. A mixture of Ropivacaine and depomedrol was injected. All needles removed at end of procedure. FINDINGS: 1. Small amount of injected air in the joint space. 2. PAIN SCORE: Before: 6/10 After: 4/10 3. Fluoroscopy time: 0.22 minutes 4. Medications: Lidocaine 1% - <5 ml, for subcutaneous anesthesia A mixture composed of the following medication was prepared: Ropivacaine HCL 0.5% - 0.5 ml (2.5mg) methylPREDNISolone acetate 40: 40 mg Total injected volume: 0.5ml COMPLICATIONS: None immediate. POST-PROCEDURE CARE: Information regarding monitor of infection, post- procedural pain and management of steroid flare were reviewed withpatient. IMPRESSION Uneventful right thumb cmc joint injection under fluoroscopy. Resident/ Fellow: None Attending: There was no attending present for this procedure Procedure performed by Sary Maldonado APRN Thank you for letting us participate in the care of this patient. Forquestions regarding this report, please contact the number below. Sharad Hoffman MD IMG FLUORO ORDERABLE S documented in this encounter Visit Diagnoses Diagnosis Arthritis of carpometacarpal (CMC) joint of both thumbs documented in this encounter Administered Medications Inactive Administered Medications - up to 3 most recent administrations Medication Order MAR Action Action Date Dose Rate Site ROpivacaine (PF) 5 mg/mL (0.5 %) 4 mL with methylPREDNISolone acetate 40 mg injection Intra-articular, ONCE, 1 dose, On Fri10/30/18 at 1430 Given 10/30/2018 2:12 PM EDT ROpivacaine (PF) 5 mg/mL (0.5 %) 4 mL with methylPREDNISolone acetate 40 mg, iohexol 300 mg/mL 4 mL injection Intra-articular, ONCE, 1 dose, On Fri10/30/18 at 1445 Given 10/30/2018 2:31 PM EDT documented in this encounter Care Teams Acetylene Plant Operator Relationship Specialty Start Date End Date Marbella Francisco PA [address] [place] [id number] PCP - General Family Medicine 07/23/18 08/04/23 documented as of this encounter
--- OUTSIDE RECORDS SUMMARY | 2024-03-11 16:25 | XMS_ITS | Encounter Summary ---
[facility] Organization [facility] [place] [address] Care Team Providers Care Fitter Helper Name Role Phone Marbella Francisco Primary Care Provider Reason for Referral * Diagnostic Test (Routine) - Closed Specialty Diagnoses / Procedures Referred By Contac t Referred To Contact Radiology Diagnoses Knee effusion, right Tear of medial meniscus of right knee, unspecified tear type, unspecified whether old or current tear, subsequent encounter Pes anserine bursitis Procedures MRI Knee wo Contrast Right (Generic) Alberta Nguyen APRN [facility] [place] [address] [place] [address] Referral ID Status Reason Start Date Expiration Date V isits Requested Visits Authorized [id number] Closed Specialty Service Requested 05/17/2020 11/15/2021 1 1 Encounter Details Date Type Department Care Team (Latest Contact Info) Description 05/17/2020 10:40 AM EST TH Visit (TeleHealth) [place] [address] Alberta Nguyen APRN [facility] [place] [address] Knee effusion, right; Tear of medial meniscus of right knee, unspecified tear type, unspecified whether old or current tear, subsequent encounter; Pes anserine bursitis Social History Tobacco Use Types Packs/Day Years Used Date Smoking Tobacco: Former Smokeless Tobacco: Never Comments:Only as a teenager Sex and Gender Information Value Date Recorded Sex Assigned at Not on file Gender Identity Not on file Sexual Orientation Not on file documented as of this encounter Progress Notes * Alberta Nguyen, EXPLOSIVE OPERATOR GRENADE - 05/17/2020 10:40 AM EST I obtained the patient's consent to receiving health care services at [facility] through telemedicine. We discussed the opportunities and limitations of delivering health care services through telemedicine. I told the patient that the telemedicine service is being delivered over a secure connection, except in the event of emergency conditions when such requirements may be waived. Patient agreed to the participation of other individuals assisting with their care by telemedicine, if indicated. Patient informed that telemedicine informed consent form is available for patient's review in -'s patient portal, [facility]. Subjective: planned f/u for both knee injections. She did well s/p injections for a few weeks with very little pain. However, The right knee pain is now back to square one. The left knee is relatively quiescent. Radha is unsure how to proceed at this time. Pain is moderate with mild swelling. Vannessa does admittedly help with pain and swelling. She is working on some physical therapy exercises on her own at this time. No interval falls or injuries. No other health relative issues to report at this time. Physical exam: N/A. Decision Making/Plan: Radha did well initially with both knee injections for a few weeks with verylittle pain. However, The right knee pain has recurrent back to square one. She is frustrated about her continued pain despite multiple conservative modalities PT exercises, Scheduled NSAID's, and steroid injections. At this time, as discussed in my previous evaluation, we could consider further cross sectional imaging to assess for intra-articular pathology such as a flipped, displaced meniscus, pes anserine bursitis, or subchondral insufficiency fracture. The patient indicates understandingof these issues and agrees with the plan. Radha also reports some friends that have tried gel injections and wonders if this would be appropriate for her. I did encourage Radha to review Synvisc injection on line review under their PT ed portal to see if this would be a modality she would like to try. I have placed the RIGHT knee MRI scan order in [facility] with oral sedation due to anxiety and claustrophobia. I have already ordered this as a future order in the computer. Radha is comfortable with this approach. F/u plan: I will call with the MRI scan results. Patient verbally consents to this telephone visit and understands that this visit may be billed, similar to a clinic office visit. I provided care to the patient today via telephone call. The total time associated with this visit was 10 minutes including chart prep, telephone visit and documentation. documented in this encounter Plan of Treatment Not on file documented as of this encounter Results * MRI Knee wo Contrast Right (Generic) (06/08/2020 2:29 PM EST) Anatomical Region Laterality Modality Knee Right Magnetic Resonan ce Impressions 06/09/2020 8:23 AM EST 1. ??Complex tear of the posterior horn right medial meniscus with extrusion into the medial gutter. 2. ??Moderate-sized knee joint effusion with synovitis. 3. ??Moderate-sized Hernandes's cyst. 4. ??Diffuse cartilage loss of the medial tibial plateau and medial patellar facet. ??No insufficiency fracture. Preliminary report signed by: Kostas Enamorado at 06/08/2020 4:25 PM I have personally reviewed the image(s) and the resident's interpretation and agree with the findings, Sherin Candelario MD at 06/09/2020 8:23 AM Thank you for letting us participate in the care of this patient. For questions regarding this report, please contact the number below. ? Electronically signed by: Sherin Candelario MD, [facility] ([phone]), at 06/09/2020 8:23 AM Narrative 06/09/2020 8:23 AM EST EXAMINATION: MRI KNEE WO CONTRAST RIGHT (GENERIC) CLINICAL HISTORY: severe right knee pain despite multiple modalities PT, NSAIDs, injections. ??clinical exam concerning for MMT, pes anserine bursitis, possible subchondral insufficienty fracture, eval for meniscus tear, pes anserine bursitis or insufficiency fracture, needs oral sedation due to claustrophobia TECHNIQUE: MRI of the right knee performed without the use of intravenous contrast. COMPARISON: Knee radiographs 11/23/2019. FINDINGS: Menisci Medial meniscus: Complex horizontal and radial tear of the posterior horn medial meniscus, with 6 mm of meniscal extrusion into the medial gutter. Lateral meniscus: Normal. Ligaments ACL: Normal PCL: Normal MCL: Normal LCL complex: Normal Tendons Quadriceps: Normal Patellar: Normal Popliteus: Normal Bones: No fracture or bone marrow edema. Cartilage Patellofemoral: Full-thickness cartilage loss of the medial patellar facet with deep fissuring of the lateral patellar facet cartilage. Medial tibiofemoral: Near full-thickness cartilage loss of the medial tibial plateau Lateral tibiofemoral: Normal Joint effusion: Moderate size knee joint effusion with synovitis and lipoma arborescens. Hernandes's cyst: Approximately 4.6 cm in craniocaudal length bilobed Hernandes's cyst. Mild prepatellar soft tissue edema. Procedure Note Sherin Candelario MD - 06/09/2020 EXAMINATION: MRI KNEE WO CONTRAST RIGHT (GENERIC) CLINICAL HISTORY: severe right knee pain despite multiple modalities PT,NSAIDs, injections. clinical exam concerning for MMT, pes anserine bursitis,possible subchondral insufficienty fracture, eval for meniscus tear, pes anserine bursitis or insufficiency fracture, needs oral sedation due toclaustrophobia TECHNIQUE: MRI of the right knee performed without the use of intravenous contrast. COMPARISON: Knee radiographs 11/23/2019. FINDINGS: Menisci Medial meniscus: Complex horizontal and radial tear of the posterior hornmedial meniscus, with 6 mm of meniscal extrusion into the medial gutter. Lateral meniscus: Normal. Ligaments ACL: Normal PCL: Normal MCL: Normal LCL complex: Normal Tendons Quadriceps: Normal Patellar: Normal Popliteus: Normal Bones: No fracture or bone marrow edema. Cartilage Patellofemoral: Full-thickness cartilage loss of the medial patellar facetwith deep fissuring of the lateral patellar facet cartilage. Medial tibiofemoral: Near full-thickness cartilage loss of the medialtibial plateau Lateral tibiofemoral: Normal Joint effusion: Moderate size knee joint effusion with synovitis andlipoma arborescens. Hernandes's cyst: Approximately 4.6 cm in craniocaudal length bilobed Hernandes'scyst. Mild prepatellar soft tissue edema. IMPRESSION 1. Complex tear of the posterior horn right medial meniscus withextrusion into the medial gutter. 2. Moderate-sized knee joint effusion with synovitis. 3. Moderate-sized Hernandes's cyst. 4. Diffuse cartilage loss of the medial tibial plateau and medialpatellar facet. No insufficiency fracture. Preliminary report signed by: Kostas Enamorado at 06/08/2020 4:25 PM I have personally reviewed the image(s) and the resident's interpretationand agree with the findings, Sherin Candelario MD at 06/09/2020 8:23 AM Thank you for letting us participate in the care of this patient. Forquestions regarding this report, please contact the number below. Electronically signed by: Sherin Candelario MD, [facility]([phone]), at 06/09/2020 8:23 AM Alberta Nguyen APRN IMG MRI ORDERABLES documented in this encounter Visit Diagnoses Diagnosis Knee effusion, right Effusion of lower leg joint Tear of medial meniscus of right knee, unspecified tear type, unspecified whether old or current tear, subsequent encounter Pes anserine bursitis Pes anserinus tendinitis or bursitis Knee effusion, right Effusion of lower leg joint Tear of medial meniscus of right knee, unspecified tear type, unspecified whether old or current tear, subsequent encounter Pes anserine bursitis Pes anserinus tendinitis or bursitis documented in this encounter Care Teams Fitter Helper Relationship Specialty Start Date End Date Marbella Francisco PA [address] [place] [phone] PCP - General Family Medicine 07/23/18 08/04/23 documented as of this encounter
--- OUTSIDE RECORDS SUMMARY | 2024-03-11 16:25 | XMS_ITS | Encounter Summary ---
[place] [address] Care Team Providers Care Account Representative Name Role Phone Marbella Francisco Primary Care Provider Encounter Details Date Type Department Care Team ([facility] st Contact Info) Description 04/25/2023 [facility] [address] [place] [address] Josie Montenegro, [facility] Social History Tobacco Use Types Packs/Day Years [...] on filedocumented in this encounter Care Teams Account Representative Relationship Specialty Start Date End Date Marbella Francisco PA [address] [place] [id number] PCP - General Family Medicine 07/23/18 08/04/23 documented as of this encounter
--- OUTSIDE RECORDS SUMMARY | 2024-03-11 16:25 | XMS_ITS | Encounter Summary ---
[place] [address] Care Team Providers Care Tarring Machine Operator Name Role Phone Marbella Francisco Primary Care Provider Encounter Details Date Type Department Care Team ([facility] st Contact Info) Description 02/19/2023 Interpretation Only [address] [address] Sonny Marcelo MD [address] [place] [id number] Social History Tobacco Use Types Packs/Day Years [...] Priority Date/Time Associated Diagnosis Comments XR CHEST PA AND LATERAL STAT 02/19/2023 7:30 PM EDT documented in this encounter Results * XR Chest PA & Lateral (Generic) (02/19/2023 7:30 PM EDT) PT CLASS E DH RAD ADMITDTTM DH RAD PT RAD INFO [id number]^S TONER^SONNY^ D DH RAD EXAM DESC XCXR2^XR CHEST 2 VIEWS^RIS RAD Anatomical Region Laterality Modality Chest N/A Radiographic Jen ging Impressions 02/19/2023 7:58 PM EDT No acute pulmonary process. Thank you for letting us participate in the care of this patient. ??If you are a health care provider and have any questions regarding this report, please contact the number below. ??For patients who have questions please contact the health assistant child care teacher that requested your imaging first. ? Electronically signed by: Severo Freeman MD, [facility] ??([phone]), at 02/19/2023 7:58 PM Narrative 02/19/2023 7:58 PM EDT EXAMINATION: XR CHEST 2 VIEWS CLINICAL HISTORY: cough, sOB, asthma exacerbation TECHNIQUE: PA and lateral chest x-ray COMPARISON: Chest x-ray 07/16/2022 FINDINGS: The lungs are clear. No airspace consolidation, pleural effusion, or pneumothorax. The cardiomediastinal silhouette is unchanged. No cardiomegaly. Tortuous descending thoracic aorta, unchanged. No evidence of pulmonary edema. No acute osseous abnormality is seen. Procedure Note Severo Freeman MD - 02/19/2023 EXAMINATION: XR CHEST 2 VIEWS CLINICAL HISTORY: cough, sOB, asthma exacerbation TECHNIQUE: PA and lateral chest x-ray COMPARISON: Chest x-ray 07/16/2022 FINDINGS: The lungs are clear. No airspace consolidation, pleural effusion, or pneumothorax. The cardiomediastinal silhouette is unchanged. Nocardiomegaly. Tortuous descending thoracic aorta, unchanged. No evidence of pulmonaryedema. No acute osseous abnormality is seen. IMPRESSION No acute pulmonary process. Thank you for letting us participate in the care of this patient. If youare a health care provider and have any questions regarding this report,please contact the number below. For patients who have questions please contactthe health assistant child care teacher that requested your imaging first. Electronically signed by: Severo Freeman MD, [facility]([phone]), at 02/19/2023 7:58 PM Sonny Marcelo MD IMG DX ORDERABLES documented in this encounter Visit Diagnoses Not on filedocumented in this encounter Care Teams Tarring Machine Operator Relationship Specialty Start Date End Date Marbella Francisco PA [address] [place] [id number] PCP - General Family Medicine 07/23/18 08/04/23 documented as of this encounter
--- OUTSIDE RECORDS SUMMARY | 2024-03-11 16:25 | XMS_ITS | Encounter Summary ---
Author Organization [facility] [place] [place] [address] Care Team Providers Care Wildfire Prevention Specialist Name Role Phone Marbella Francisco Primary Care Provider [phone] Reason for Visit * Reason Onset Date Comments Appointment 06/29/2021 Encounter Details Date Type Department Care Team (Late st Contact Info) Description 06/29/2021 [place] [address] [place], NINA Perdomo [facility] [place] [address] Appointment Social History Tobacco Use Types Packs/Day Years Used Date Smoking Tobacco: Former Smokeless Tobacco: Never Comments:Only as a teenager Sex and Gender Information Value Date Recorded Sex Assigned at Not on file Gender Identity Not on file Sexual Orientation Not on file documented as of this encounter Miscellaneous Notes * Telephone Encounter - Raiza Hoover - 06/29/2021 2:45 PM EST Patient has been scheduled. * Telephone Encounter - Morena Nguyen - 06/29/2021 11:11 AM EST LM#1 for Patient to schedule with Myriam Rossi (3 weeks out and attach referral for Synvisc) NXR KNEE SYNVISC INJ documented in this encounter Plan of Treatment Not on file documented as of this encounter Visit Diagnoses Not on filedocumented in this encounter Care Teams Wildfire Prevention Specialist Relationship Specialty Start Date End Date Marbella Francisco PA [address] [place] [phone] PCP - General Family Medicine 07/23/18 08/04/23 documented as of this encounter
--- OUTSIDE RECORDS SUMMARY | 2024-03-11 16:25 | XMS_ITS | Encounter Summary ---
[place] [address] Care Team Providers Care Senior Data Warehouse Architect Name Role Phone Marbella Francisco Primary Care Provider [phone] Encounter Details Date Type Department Care Team (Latest Contact Info) Description 10/30/2018 11:20 AM EDT - 10/30/2018 1:30 PM EDT Hospital Encounter Mammography/[place] [address] Marbella Francisco PA [address] [place] [phone] Encounter for screening mammogram for breast cancer Discharge Disposition: Home Social History Tobacco Use [...] Associated Diagnosis Comments MAMMO SCREENING CAD AND YOGI BILATERAL Routine 10/30/2018 11:52 AM EDT Encounter for screening mammogram for breast cancer documented in this encounter Results * Mammo Screening Cad and Yogi Bilateral (10/30/2018 11:52 AM EDT) Anatomical Region Laterality Modality Breast Bilateral Mammography Narrative 10/30/2018 12:09 PM EDT BILATERAL MAMMOGRAPHY REASON FOR EXAM: Screening TECHNIQUE: CC and MLO views were obtained of each breast using standard 2-D mammography as well as 3-D tomosynthesis. Computer aided detection was used. There are no prior images for comparison. FINDINGS: ??The breasts are heterogeneously dense, which may obscure small masses. There are no suspicious microcalcifications, masses, or areas of distortion. CONCLUSION: No mammographic evidence of malignancy. RECOMMENDATION: Medical organizations agree that annual screening mammography beginning at age 40 saves the most lives. The risks of screening are negligible compared to dying from breast cancer or suffering from more aggressive treatment required when detected at a later stage. No woman is at low risk for breast cancer. Some women, because of their family history, a genetic tendency, or certain other factors, should be screened with breast MRI along with mammograms. (The number of women who fall into this category is very small). The patient and health care provider should discuss the patient history and decide if earlier screening and breast MRI are appropriate. Screening should continue as long as a woman is in good health and is expected to live 10 years or longer. Screening mammography may not detect 10-15% of breast cancers. Women should report any breast changes to a health care provider right away. A result letter has been sent to this patient by the [facility]. BIRADS CATEGORY 1: NEGATIVE Marbella WOOD IMG MAMMO ORDERABLES documented in this encounter Visit Diagnoses Diagnosis Encounter for screening mammogram for breast cancer documented in this encounter Care Teams Senior Data Warehouse Architect Relationship Specialty Start Date End Date Marbella Francisco PA [address] [place] [phone] PCP - General Family Medicine 07/23/18 08/04/23 documented as of this encounter
--- OUTSIDE RECORDS SUMMARY | 2024-03-11 16:25 | XMS_ITS | Encounter Summary ---
[place] [address] Care Team Providers Care Route Sales Manager Name Role Phone Marbella Nava Primary Care Provider [phone] Reason for Referral * Diagnostic Test (Routine) - Closed Specialty Diagnoses / Procedures Referred By Contac t Referred To Contact Radiology Diagnoses Fatty liver Procedures US Abdomen Limited Marbella Nava PA [address] [place] [address] [facility] [place] [address] Referral ID Status Reason Start Date Expiration Date V isits Requested Visits Authorized [id number] Closed Specialty Service Requested 01/17/2021 07/20/2022 1 1 Reason for Visit * Diagnostic Test (Routine) - Closed Specialty Diagnoses / Procedures Referred By Contac t Referred To Contact Radiology Diagnoses Fatty liver Procedures US Abdomen Limited Marbella Nava PA [address] [place] [address] [facility] [place] [address] Referral ID Status Reason Start Date Expiration Date V isits Requested Visits Authorized [id number] Closed Specialty Service Requested 01/17/2021 07/20/2022 1 1 Encounter Details Date Type Department Care Team (Latest Contact Info) Description 01/25/2021 2:56 PM EDT - 01/25/2021 11:59 PM EDT Hospital Encounter [place] [address] Marbella Nava PA [address] [place] [address] Fatty liver Discharge Disposition: Home Social History Tobacco Use Types Packs/Day Years Used Date Smoking Tobacco: Former Smokeless Tobacco: Never Comments:Only as a teenager Sex and Gender Information Value Date Recorded Sex Assigned at Not on file Gender Identity Not on file Sexual Orientation Not on file documented as of this encounter Medications at Time of Discharge Medication Sig Dispensed Refills Start Date End Date potassium chloride ER (K-Dur/Klor-Con) 10 mEq Tablet Sustained Release take 1 tablet by mouth once daily 01/18/2021 atorvastatin (Lipitor) 20 mg Tablet take 1 tablet by mouth every evening 01/17/2021 naproxen sodium (ALEVE) 220 mg Capsule Take by mouth. Pt taking two tablets once a day amLODIPine-benazepril (LOTREL) 5-20 mg Capsule Take 1 capsule by mouth daily. 04/06/2018 VENTOLIN HFA 90 mcg/actuation HFA Aerosol Inhaler 04/06/2018 ranitidine (ZANTAC) 150 mg Tablet Take 1 tablet by mouth 2 times daily. 180 tablet 3 07/23/2018 documented as of this encounter Plan of Treatment Not on file documented as of this encounter Procedures Procedure Name Priority Date/Time Associated Diagnosis Comments US ABDOMEN LIMITED Routine 01/25/2021 3: 23 PM EDT Fatty liver documented in this encounter Results * US Abdomen Limited (01/25/2021 3:23 PM EDT) Anatomical Region Laterality Modality Abdomen Ultrasound 01/25/2021 3:21 PM EDT Impressions 01/25/2021 4:43 PM EDT 1. ??Enlarged echogenic hepatic parenchyma consistent with hepatic steatosis. No focal lesion. 2. ??Small 4 mm gallbladder polyp. Recommend follow- up ultrasound one year. I have personally reviewed the image(s) and the resident's interpretation and agree with the findings, Claudia Blackwell MD at 01/25/2021 4:35 PM Electronically signed by: Claudia Blackwell MD, [facility] [place] ([phone]), at 01/25/2021 4:35 PM Thank you for letting us participate in the care of this patient. If you are a health care provider and have any questions regarding this report, please contact the number above. For patients who have questions, please contact the health critical care nurse practitioner that requested your imaging first. ?Claudia Young, Staff Physician Electronically Signed Final Report ?? 01/25/2021 04:42 pm Narrative 01/25/2021 4:43 PM EDT Abdominal ? (Signed Final 01/25/2021 04:42 pm) PATIENT INFO: ID #: ? [id number] ?: ??[birth year] (55 yrs)(F) Name: ? ROLY BUENO ? Visit Date: 01/25/2021 03:21 pm PERFORMED BY: Performed By: ? Wai Buchanan RDMS Attending: ?Rosalva GROVE, Claudia Metzger Resident: ? Yoanna GROVE, Khadra Carroll Referred By: ?MARBELLA NAVA Location: ? [place] SERVICE(S) PROVIDED: UABDLIM - Abdominal Limited Survey Single ? 49065 Organ or Quadrant - [id number] INDICATIONS: FATTY(CHANGE OF)LIVER, NOT ELSEWHERE CLASSIFIED COMPARISON: 04/02/18 ------ LIVER: ------ Right Lobe Length: ?? 19.4 ?? cm Echogenicity/Echotexture: ?? Fatty liver GALLBLADDER: Cholelithiasis: ?No stones visualized Wall Thickness: ?Normal wall thickness Focal Tenderness: ?Negative sonographic Hoover's sign Comment: ?Polyp BILIARY TRACT: Intrahepatic Ducts: ?? Normal Extrahepatic Ducts: ?? Normal Common Duct Size: ? 4.0 ? mm --------- PANCREAS: --------- Head: ?Normal ?Size: Tail: ?Poorly visualized due to ?Size: ?overlying bowel Body: ?Normal ?Size: RIGHT KIDNEY: Size (cm) ?L: ??11.9 Cortical Thickness: ?Normal Cortical Echogenicity: ?? Normal Hydronephrosis: ?No sonographic evidence ---- IVC: ---- Normal in caliber where visualized. Procedure Note Claudia Evans MD - 01/25/2021 Abdominal (Signed Final 01/25/2021 04:42 pm) PATIENT INFO: ID #: [id number] : 65 (55 yrs)(F) Name: ROLY BUENO Visit Date: 01/25/2021 03:21 pm PERFORMED BY: Performed By: Wai Buchanan RDMS Attending: Claudia Blackwell MD Resident: Khadra Lenz MD Referred By: MARBELLA NAVA Location: [place] SERVICE(S) PROVIDED: UABDLIM - Abdominal Limited Survey Single [id number] Organ or Quadrant - [id number] INDICATIONS: FATTY(CHANGE OF)LIVER, NOT ELSEWHERE CLASSIFIED COMPARISON: 04/02/18 ------ LIVER: ------ Right Lobe Length: 19.4 cm Echogenicity/Echotexture: Fatty liver GALLBLADDER: Cholelithiasis: No stones visualized Wall Thickness: Normal wall thickness Focal Tenderness: Negative sonographic Hoover's sign Comment: Polyp BILIARY TRACT: Intrahepatic Ducts: Normal Extrahepatic Ducts: Normal Common Duct Size: 4.0 mm --------- PANCREAS: --------- Head: Normal Size: Tail: Poorly visualized due to Size: overlying bowel Body: Normal Size: RIGHT KIDNEY: Size (cm) L: 11.9 Cortical Thickness: Normal Cortical Echogenicity: Normal Hydronephrosis: No sonographic evidence ---- IVC: ---- Normal in caliber where visualized. IMPRESSION 1. Enlarged echogenic hepatic parenchyma consistent with hepatic steatosis. No focal lesion. 2. Small 4 mm gallbladder polyp. Recommend follow- up ultrasound one year. I have personally reviewed the image(s) and the resident's interpretation and agree with the findings, Claudia Blackwell MD at 01/25/2021 4:35 PM Electronically signed by: Claudia Blackwell MD, [facility] ([phone]), at 01/25/2021 4:35 PM Thank you for letting us participate in the care of this patient. If you are a health care provider and have any questions regarding this report, please contact the number above. For patients who have questions, please contact the health critical care nurse practitioner that requested your imaging first. Claudia Young, Staff Physician Electronically Signed Final Report 01/25/2021 04:42 pm Marbella WOOD IMG US GEN ORDERABLE S documented in this encounter Visit Diagnoses Diagnosis Fatty liver Other chronic nonalcoholic liver disease documented in this encounter Care Teams Route Sales Manager Relationship Specialty Start Date End Date Marbella Nava PA [address] [place] [id number] PCP - General Family Medicine 07/23/18 08/04/23 documented as of this encounter
--- OUTSIDE RECORDS SUMMARY | 2024-03-11 16:25 | XMS_ITS | Encounter Summary ---
Author Organization [facility] [place] [address] Care Team Providers Care Air Boatswain Name Role Phone Yudy Hernandez MD Primary Care Provider [phone] Reason for Visit * Reason Comments Follow-up NXR BILATERAL KNE E PAIN MONOVISC INJECTONSPATIENT AWARE OF LOCATION CHANGE * High Dollar Medication (Routine) - Authorized Specialty Diagnoses / Procedures Referred By Hayley lay Referred To Contact Orthopaedics Diagnoses Osteoarthritis of both knees, unspecified osteoarthritis type Procedures Monovisc Authorization Request (IN CLINIC) TC MONOVISC INJECTION, PER DOSE EnidMyriam PA [facility] [place] [address] [facility] [address] [place] [phone] Referral ID Status Reason Start Date Expiration Date Visits Requested Visits Authorized [id number] Authorized Consult, Test & Treat 12/16/2023 12/15/2024 1 2 Encounter Details Date Type Department Care Team (Latest Contact Info) Description 01/21/2024 9:30 AM EDT Clinical [place] [address] EnidMyriam PA [facility] [place] [address] Osteoarthritis of both knees, unspecified osteoarthritis type Social History Tobacco Use Types Packs/Day Years [...] on file documented as of this encounter Last Filed Vital Signs Vital Sign Reading Time Taken Comments Blood Pressure - - Pulse - - Temperature - - Respiratory Rate - - Oxygen Saturation - - Inhaled Oxygen Concentration - - Weight 67.1 kg (148 lb) 01/21/2024 9:08 AM EDT Height 167.6 cm (5' 6) 01/21/2024 9:08 AM EDT Body Mass Index 23.89 01/21/2024 9:08 AM EDT documented in this encounter Progress Notes * Enid, NINA Perdomo - 01/21/2024 9:30 AM EDT Radha Bueno is a 58 y.o. female who presents to clinic today for procedure only visit, bilateralknee Monovisc injection for bilateral knee DJD.Has had cortisone in the past, but prefers to defer this due to concerns for joint degradation. Visco was helpful last time. She reports increasing painand would like to proceed with injection today. Denies interval change in health. Denies current infectious symptoms. After discussion, would like to proceed. See procedure note below. bilateral knee with tace effusion. No warmth, lesions, drainage. ROM 0-120. Stable to varus, valgusand AP stress. Calf is supple, nontender. Foot is warm, well perfused. Sensation intact to light touch distally. PROCEDURE NOTE: Bilateral knee Monovisc Injection A time-out was performed and the bilateral knee was confirmed to be the site of injection. The patient was confirmed to have no allergies to betadine, local anesthetics, or viscosupplementation. The patient was counseled about the potential risks of the procedure, including infection, bleeding and incomplete relief of symptoms. The patient provided consent. The skin was prepped widely over the bilateral knee. Then, using sterile technique, a solution consisting of 4cc Monovisc, was injected into the bilateral knee. The needle was felt to slide into the capsule and the mixture flowed freely. The skin was cleaned and a Band-Aid was applied. The patient t olerated the procedure well. She will monitor pain in the upcoming weeks to determine efficacy of the injection. We discussed that if injections are effective she can have up to 2 per joint per year. She will return to clinic doroteo as-needed basis if symptoms persist, progress, she would like to proceed with repeat corticosteroid or visco injection, she would like to discuss further management strategies for knee osteoarthritis. Questions were solicited and answered. She agrees with this plan. NINA Peña documented in this encounter Plan of Treatment Not on file documented as of this encounter Visit Diagnoses Diagnosis Osteoarthritis of both knees, unspecified osteoarthritis type documented in this encounter Administered Medications Inactive Administered Medications - up to 3 most recent administrations Medication Order MAR Action Action Date Dose Rate Site hyaluronate sodium, stabilized (Monovisc) Syringe 88 mg 88 mg (4 mL), Intra-articular, ONCE, On Fri01/21/24 at 1030, 1 dose Given 01/21/2024 10:03 AM EDT 88 mg hyaluronate sodium, stabilized (Monovisc) Syringe 88 mg 88 mg (4 mL), Intra-articular, ONCE, On Fri01/21/24 at 1030, 1 dose Given 01/21/2024 10:03 AM EDT 88 mg documented in this encounter Care Teams Air Boatswain Relationship Specialty Start Date End Date Yudy Hernandez MD [address] [place] [address] PCP - General Family Medicine 08/05/23 documented as of this encounter
--- OUTSIDE RECORDS SUMMARY | 2024-03-11 16:25 | XMS_ITS | Encounter Summary ---
Author Organization [facility] [place] [address] Care Team Providers Care Orthodontist Assistant Name Role Phone Marbella Francisco Primary Care Provider Reason for Visit * Diagnostic Test (Routine) - Closed Specialty Diagnoses / Procedures Referred By Contac t Referred To Contact Radiology Diagnoses Knee effusion, right Tear of medial meniscus of right knee, unspecified tear type, unspecified whether old or current tear, subsequent encounter Pes anserine bursitis Procedures MRI Knee wo Contrast Right (Generic) Alberta Nguyen APRN [facility] [place] [address] [place] [address] Referral ID Status Reason Start Date Expiration Date V isits Requested Visits Authorized [id number] Closed Specialty Service Requested 05/17/2020 11/15/2021 1 1 Encounter Details Date Type Department Care Team (Latest Contact Info) Description 06/08/2020 12:34 PM EST - 06/08/2020 11:59 PM EST Hospital [place] [address] Alberta Nguyen KNEE BOLTER [facility] [place] [address] Discharge Disposition: Home Social History Tobacco Use Types Packs/Day Years Used Date Smoking Tobacco: Former Smokeless Tobacco: Never Comments:Only as a teenager Sex and Gender Information Value Date Recorded Sex Assigned at Not on file Gender Identity Not on file Sexual Orientation Not on file documented as of this encounter Medications at Time of Discharge Medication Sig Dispensed Refills Start Date End Date naproxen sodium (ALEVE) 220 mg Capsule Take [...] Procedure Name Priority Date/Time Associated Diagnosis Comments MRI KNEE RIGHT WO CONTRAST Routine 06/08/2020 2:29 PM EST Knee effusion, right Tear of medial meniscus of right knee, unspecified tear type, unspecified whether old or current tear, subsequent encounter Pes anserine bursitis documented in this encounter Results * MRI Knee wo [...] ? Electronically signed by: Sherin Candelario MD, [facility] ([phone]), at 06/09/2020 8:23 AM Narrative 06/09/2020 8:23 [...] below. Electronically signed by: Sherin Candelario MD, [facility]([phone]), at 06/09/2020 8:23 AM Alberta Nguyen APRN IMG MRI ORDERABLES documented in this encounter Visit Diagnoses Not on filedocumented in this encounter Care Teams Orthodontist Assistant Relationship Specialty Start Date End Date Rodrikc-Marbella Leung PA [address] [place] [address] PCP - General Family Medicine 07/23/18 08/04/23 documented as of this encounter
--- OUTSIDE RECORDS SUMMARY | 2024-03-11 16:25 | XMS_ITS | Encounter Summary ---
Author Organization [facility] [place] [address] Care Team Providers Care Molasses And Caramel Operator Name Role Phone Marbella Francisco Primary Care Provider Reason for Visit * Reason Onset Date Comments Other 05/18/2020 Encounter Details Date Type Department Care Team (Late st Contact Info) Description 05/18/2020 Telephone [place] [id number] Alberta Nguyen APRN [facility] [place] [address] Other Social History Tobacco Use Types Packs/Day Years Used Date Smoking Tobacco: Former Smokeless Tobacco: Never Comments:Only as a teenager Sex and Gender Information Value Date Recorded Sex Assigned at Not on file Gender Identity Not on file Sexual Orientation Not on file documented as of this encounter Miscellaneous Notes * Telephone Encounter - Giovanna Jeter - 05/24/2020 9:02 AM EST No response from patient, letter sent * Telephone Encounter - Morena Nguyen - 05/22/2020 9:23 AM EST LM#2 for PT to Schedule MRI, Safety Questions need to be answered * Telephone Encounter - Morena Nguyen - 05/18/2020 9:59 AM EST LM#1 for PT to schedule R Knee MRI, safety questions need to be answered documented in this encounter Plan of Treatment Not on file documented as of this encounter Visit Diagnoses Not on filedocumented in this encounter Care Teams Molasses And Caramel Operator Relationship Specialty Start Date End Date Marbella Francisco PA [address] [place] [address] PCP - General Family Medicine 07/23/18 08/04/23 documented as of this encounter
--- OUTSIDE RECORDS SUMMARY | 2024-03-11 16:25 | XMS_ITS | Encounter Summary ---
[place] [address] Care Team Providers Care Linux Systems Administrator Name Role Phone Marbella Francisco Primary Care Provider [phone] Encounter Details Date Type Department Care Team (Latest Contact Info) Description 01/11/2022 10:13 PM EDT - 01/11/2022 11:59 PM EDT Hospital [place] [phone] Discharge Disposition: Home Social History Tobacco Use [...] Procedure Name Priority Date/Time Associated Diagnosis Comments GAMMA GT Routine 01/11/2022 3:22 PM EDT documented in this encounter Results * (ABNORMAL) Gamma GT (01/11/2022 3:22 PM EDT) Gamma Glutamyl Transferase 1,682(H) 5 - 36 unit/L [facility] Blood Venous Draw / Unknown 01/11/2022 3:22 PM EDT 01/11/2022 9:47 PM EDT Narrative Resulting Agency Comment Spec In Lab Aydin Nguyen Jr., DO CHEMISTRY ORDERABLE S [facility] [place] [address] documented in this encounter Visit Diagnoses Not on filedocumented in this encounter Care Teams Linux Systems Administrator Relationship Specialty Start Date End Date Marbella Francisco PA [address] [place] [address] PCP - General Family Medicine 07/23/18 08/04/23 documented as of this encounter
--- OUTSIDE RECORDS SUMMARY | 2024-03-11 16:25 | XMS_ITS | Encounter Summary ---
Author Organization [facility] [place] [address] Care Team Providers Care Seed Pelleter Name Role Phone Mrabella Francisco Primary Care Provider Encounter Details Date Type Department Care Team (Late st Contact Info) Description 09/22/2018 Orders [place] [address] Sharad Hoffman MD [facility] [place] [address] Bilateral hand pain Social History Tobacco Use Types Packs/Day Years Used Date Smoking Tobacco: Former Smokeless Tobacco: Never Comments:Only as a teenager Sex and Gender Information Value Date Recorded Sex Assigned at Not on file Gender Identity Not on file Sexual Orientation Not on file documented as of this encounter Plan of Treatment Not on file documented as of this encounter Results * XR Hand Min [...] the number below. Sharad Hoffman MD IMG DX ORDERABLES documented in this encounter Visit Diagnoses Diagnosis Bilateral hand pain Pain in limb Bilateral hand pain Pain in limb documented in this encounter Care Teams Seed Pelleter Relationship Specialty Start Date End Date Rodrick-Marbella Leung PA [address] [place] [address] PCP - General Family Medicine 07/23/18 08/04/23 documented as of this encounter
--- OUTSIDE RECORDS SUMMARY | 2024-03-11 16:25 | XMS_ITS | Encounter Summary ---
[place] [address] Care Team Providers Care Inspection Engineer Name Role Phone Marbella Francisco Primary Care Provider [phone] Reason for Visit * Reason Onset Date Comments Appointment 04/25/2021 Encounter Details Date Type Department Care Team (Late st Contact Info) Description 04/25/2021 Telephone [place] [phone] Clinic, Dr Payne Team None Appointment Social History Tobacco Use Types Packs/Day Years Used Date Smoking Tobacco: Former Smokeless Tobacco: Never Comments:Only as a teenager Sex and Gender Information Value Date Recorded Sex Assigned at Not on file Gender Identity Not on file Sexual Orientation Not on file documented as of this encounter Miscellaneous Notes * Telephone Encounter - Morena Nguyen - 04/25/2021 8:36 AM EST LM#1 for Patient to if she would like to schedule a missed appointment from 04/25/21, already dottedand noted documented in this encounter Plan of Treatment Not on file documented as of this encounter Visit Diagnoses Not on filedocumented in this encounter Care Teams Inspection Engineer Relationship Specialty Start Date End Date Marbella Francisco PA [address] [place] [address] PCP - General Family Medicine 07/23/18 08/04/23 documented as of this encounter
--- OUTSIDE RECORDS SUMMARY | 2024-03-11 16:25 | XMS_ITS | Encounter Summary ---
[place] [address] Care Team Providers Care Milking Machine Operator Name Role Phone Marbella Francisco Primary Care Provider Encounter Details Date Type Department Care Team (Late st Contact Info) Description 07/29/2018 Telephone [place] [phone] Camille Eagle Social History Tobacco Use Types Packs/Day Years [...] on filedocumented in this encounter Care Teams Milking Machine Operator Relationship Specialty Start Date End Date Marbella Francisco PA [address] [place] [address] PCP - General Family Medicine 07/23/18 08/04/23 documented as of this encounter
--- OUTSIDE RECORDS SUMMARY | 2024-03-11 16:25 | XMS_ITS | Encounter Summary ---
[place] [address] Care Team Providers Care Tipping Machine Operator Name Role Phone Marbella Francisco Primary Care Provider Encounter Details Date Type Department Care Team (Late st Contact Info) Description 01/23/2021 Orders Only Cardiology at [address] [address] Angle Ingram RN Chest pain, unspecified type Social History Tobacco Use Types Packs/Day Years Used Date Smoking Tobacco: Former Smokeless Tobacco: Never Comments:Only as a teenager Sex and Gender Information Value Date Recorded Sex Assigned at Not on file Gender Identity Not on file Sexual Orientation Not on file documented as of this encounter Plan of Treatment Not on file documented as of this encounter Visit Diagnoses Diagnosis Chest pain, unspecified type documented in this encounter Care Teams Tipping Machine Operator Relationship Specialty Start Date End Date Marbella Francisco PA [address] [place] [address] PCP - General Family Medicine 07/23/18 08/04/23 documented as of this encounter
--- OUTSIDE RECORDS SUMMARY | 2024-03-11 16:25 | XMS_ITS | Encounter Summary ---
Author [facility] [place] [address] Care Team Providers Care Retail And Restaurant Name Role Phone Marbella Francisco Primary Care Provider [phone] Encounter Details Date Type Department Care Team (Late st Contact Info) Description 07/28/2018 Orders [place] [address] Melania Stephen MD [facility] [place] [address] Elevated liver enzymes Social History Tobacco Use Types Packs/Day Years Used Date Smoking Tobacco: Former Smokeless Tobacco: Never Comments:Only as a teenager Sex and Gender Information Value Date Recorded Sex Assigned at Not on file Gender Identity Not on file Sexual Orientation Not on file documented as of this encounter Plan of Treatment Not on file documented as of this encounter Visit Diagnoses Diagnosis Elevated liver enzymes Nonspecific elevation of levels of transaminase or lactic acid dehydrogenase (LDH) documented in this encounter Care Teams Retail And Restaurant Relationship Specialty Start Date End Date Marbella Francisco PA [address] [place] [address] PCP - General Family Medicine 07/23/18 08/04/23 documented as of this encounter
--- OUTSIDE RECORDS SUMMARY | 2024-03-11 16:25 | XMS_ITS | Encounter Summary ---
Author Organization [facility] [place] [place] [address] Care Team Providers Care Paper Hanger Name Role Phone Marbella Francisco Primary Care Provider Reason for Visit * Reason Comments Follow-up RIGHT KNEE MONOVISC INJ * High Dollar Medication (Routine) - Closed Specialty Diagnoses / Procedures Referred By Hayley lay Referred To Contact Orthopaedics Diagnoses Tear of medial meniscus of right knee, unspecified tear type, unspecified whether old or current tear, subsequent encounter Arthritis of right knee Procedures Synvisc One Authorization Request (IN CLINIC) TC SYNVISC/SYNVISC-ONE, 1MG, INTRA-ARTICULAR INJECTION TC MONOVISC INJECTION, PER DOSE *SWITCHED TO PREFERRED DRUG, MONOVISC PER [facility]* Clinic, Dr Payne Team None [facility] [address] [place] [phone] Referral ID Status Reason Start Date Expiration Date V isits Requested Visits Authorized [id number] Closed Consult, Test & Treat 07/16/2021 07/15/2022 2 2 Encounter Details Date Type Department Care Team (Late st Contact Info) Description 07/16/2021 3:00 PM EST Office [place] [phone] [place], NINA Perdomo [facility] [place] [address] Tear of medial meniscus of right knee, unspecified tear type, unspecified whether old or current tear, subsequent encounter; Arthritis of right knee Social History Tobacco Use Types Packs/Day Years [...] - Inhaled Oxygen Concentration - - Weight 65.8 kg (145 lb) 07/16/2021 2:57 PM EST Height 167.6 cm (5' 6) 07/16/2021 2:57 PM EST Body Mass Index 23.4 07/16/2021 2:57 PM EST documented in this encounter Progress Notes * [place], NINA Perdomo - 07/16/2021 3:00 PM EST Radha Bueno is a 55 y.o. female who presents to clinic today for procedure only visit, right knee Monovisc injection for right knee DJD.Has had cortisone in the past, but prefers to defer this dueto concerns for joint degradation. Interested in trying visco. She reports increasing pain and would like to proceed with injection today. Denies interval change in health. Denies current infectious symptoms. After discussion, would like to proceed. See procedure note below. Vital Signs Heart Rate: 98 BP: 105/77 right knee with tace effusion. No warmth, lesions, drainage. ROM 0-120. Stable to varus, valgus andAP stress. Calf is supple, nontender. Foot is warm, well perfused. Sensation intact to light touch distally. PROCEDURE NOTE: right knee Monovisc Injection A time-out was performed and the right knee was confirmed to be the site of injection. The patient was confirmed to have no allergies to betadine, local anesthetics, or viscosupplementation. The patient was counseled about the potential risks of the procedure, including infection, bleeding and incomplete relief of symptoms. The patient provided consent. The skin was prepped widely over the right knee. Then, using sterile technique, a solution consisting of 4cc Monovisc, was injected into the right knee. The needle was felt to slide into the capsule and the mixture flowed freely. The skin was cleaned and a Band-Aid was applied. The patient tolerated the procedure well. She will monitor pain [...] as of this encounter Visit Diagnoses Diagnosis Tear of medial meniscus of right knee, unspecified tear type, unspecified whether old or current tear, subsequent encounter Arthritis of right knee Unspecified arthropathy, lower leg documented in this encounter Administered Medications Inactive Administered Medications - up to 3 most recent administrations Medication Order MAR Action Action Date Dose Rate Site hyaluronate sodium, stabilized (Monovisc) Syrg 4 mL 4 mL, Intra-articular, ONCE, On Fri07/16/21 at 1730, 1 dose Given 07/16/2021 5:07 PM EST 4 mLs documented in this encounter Care Teams Paper Hanger Relationship Specialty Start Date End Date Marbella Francisco PA [address] [place] [id number] PCP - General Family Medicine 07/23/18 08/04/23 documented as of this encounter
--- OUTSIDE RECORDS SUMMARY | 2024-03-11 16:25 | XMS_ITS | Encounter Summary ---
[place] [address] Care Team Providers Care Analytics Analyst Name Role Phone Marbella Francisco Primary Care Provider Reason for Referral * High Dollar Medication (Routine) - Closed Specialty Diagnoses / Procedures Referred By Contac t Referred To Contact Orthopaedics Diagnoses Tear of medial meniscus of right knee, unspecified tear type, unspecified whether old or current tear, subsequent encounter Arthritis of right knee Procedures Synvisc One Authorization Request (IN CLINIC) TC SYNVISC/SYNVISC-ONE, 1MG, INTRA-ARTICULAR INJECTION TC MONOVISC INJECTION, PER DOSE *SWITCHED TO PREFERRED DRUG, MONOVISC PER [facility]* Clinic, Dr Payne Team None [facility] [address] [place] [phone] Referral ID Status Reason Start Date Expiration Date V isits Requested Visits Authorized [id number] Closed Consult, Test & Treat 07/16/2021 07/15/2022 2 2 * Physical Therapy (Routine) - Closed Specialty Diagnoses / Procedures Referred By Contac t Referred To Contact Diagnoses Arthritis of right knee Josefina Martinez MD [facility] DR ORTHOPAED[place] [address] Referral ID Status Reason Start Date Expiration Date V isits Requested Visits Authorized [id number] Closed Evaluate and Treat 06/27/2021 12/24/2021 12 12 Reason for Visit * Reason Comments Follow-up BILAT KNEE PAIN; RT TORN MENISCUS Encounter Details Date Type Department Care Team (Late st Contact Info) Description 06/27/2021 10:50 AM EST [place] [phone] Herbert, Saulo Boland MD [facility] [place]OPA[place] [address] Clinic, Dr Payne Team None Tear of medial meniscus of right knee, [...] Sign Reading Time Taken Comments Blood Pressure 125/88 06/27/2021 10:42 AM EST Pulse 93 06/27/2021 10:42 AM EST Temperature - - Respiratory Rate - - Oxygen Saturation - - Inhaled Oxygen Concentration - - Weight - - Height 167.6 cm (5' 6) 06/27/2021 10:42 AM EST Body Mass Index - - documented in this encounter Progress Notes * Josefina Martinez MD - 06/27/2021 10:50 AM EST Images from the original note were not included. Department of Orthopaedics Division of Adult Joint Reconstructive Surgery CHIEF COMPLAINT: Chief Complaint Patient presents with ??? Follow-up BILAT KNEE PAIN; RT TORN MENISCUS ARTHROPLASTY HISTORY/PREVIOUS KNEE SURGERY: None Radha Bueno was referred from Saulo Godinez MD [facility] [place] [address] I.D.: Radha Bueno is a 55 y.o. year old female being seen today to discuss her right knee. Her historyand physical exam were reviewed in detail. She states that the knee has been symptomatic for a number of years at this point. Historically, the patient has had predominantly left-sided knee pain but this has improved somewhat. She does have ahistory of patellofemoral symptoms as a young kid. She was prescribed physical therapy and braces which had done well for her. She notes a few years ago she started to have worsening right knee pain.She was seen in the orthopedic clinic here in October 2019. At that time she did undergo a steroid injection into the right knee. He had minimal improvement with this upon her recollection. She did havean MRI in May 2020 which demonstrated a medial meniscal tear. She has continued to manage her symptoms nonoperatively. She has not had any further injections. She uses ice, Aleve for her pain. She notes that her pain is worse in the winter and can also be worse related to cold weather. He notesthat the knee also swells occasionally. She does have clicking as well as a fear of the knee givingout. During the summer she was able to do some horseback riding which did help with her pain. She also sees an button breaker. She notes that since starting a new job at a [employer] shop, she has had some worsening of her pain if she needs to be on her feet more frequently. Ms. Bueno denies fevers/chills/headache/chest pain/shortness of breath/abdominal pain/nausea or vomiting/weight changes She does not endorse a history of DVT/PE or clotting disorder. QUESTIONNAIRE RESPONSES: General Health, Prior Treatments, PreExisting Condition, Health Habits, About You 06/26/2021 PROMIS-10 General Health Good PROMIS-10 Quality of Life Very Good PROMIS-10 Physical Health Good PROMIS-10 Mental Health Good PROMIS-10 Social Activity Good PROMIS-10 Everyday Activities Moderately PROMIS-10 Pain 5 PROMIS-10 Fatigue Mild PROMIS-10 Social Roles Very Good PROMIS-10 Anxious or Depressed Often PROMIS PHYSICAL SCORE (range 16-68) 42.3 PROMIS MENTAL SCORE (range 21-68) 43.5 Treatments Tried Regular exercise, Weight loss, Heat and ice therapy, Brace, Acupuncture, Oral natural supplements (e.g chondroitin and glucosamine), Over the counter anti-inflammatory drugs (e.g Advil, Aspirin, Aleve), Injection of steroids or cortisone KOOS JR Scores 47.49 TKA Grade - Alzheimers or dementia - Cirrohosis or liver disease - HIV/AIDS - Pain in more than one joint in legs - Back or neck pain - Heart attack - Heart failure - Unclog/bypass leg arteries - Stroke, blood clot, TIA - Asthma - Take medication for asthma - Emphysema, chronic bronchities, or COPD - Stomach ulcers/peptic ulcer disease - Condition diagnosed by endoscopy - Diabetes - Poor kidney function - Rheumatic condtions - Cancer - Weight (lbs) - Height (feet) - Height (Inches) - BMI - Ever used tobacco products - Tobacco frequency - WHO - Tobacco Advice - Ever used alcoholic beverages - Alcohol frequency - WHO - Alcohol Advice - Live Alone - Marital situation - Schooling - Combined Household Income - # People Supported - Maltese, , - Race - Health Literacy - Currently working - Current job situation - [employer] [facility] Response 06/26/2021 KOOS JR Scores 47.49 Spine [facility] Response 06/26/2021 KOOS JR Scores 47.49 ALLERGIES Allergies Allergen Reactions ??? Unable To Find [Unclassified Drug] Pet Dander Allergies to metals: none reported. SOCIAL HISTORY: reports that she has quit smoking. She has never used smokeless tobacco. Occupation: Works in a [employer] shop SIGNIFICANT MEDICAL COMORBIDITIES: Patient Active Problem List Diagnosis Code ??? Bilateral chronic knee pain M25.561, M25.562, G89.29 ??? Chest pain, unspecified R07.9 VITALS: BP Readings from Last 1 Encounters: 06/27/21 125/88 Pulse Readings from Last 1 Encounters: 06/27/21 93 Height: 167.6 cm (5' 6) Body mass index is 24.21 kg/m??. PHYSICAL EXAM: Constitution: Radha Bueno sits in the clinic today alert, appears stated age and cooperative. She is alert and oriented. I have made the following determinations: Knee Exam: Right Prior surgery on this joint: No Knee ROM: Extension:0 Flexion: 115 Alignment: 0-4 degrees Varus Stability: A/P Translation <5mm. Varus (lateral stability) <5mm Valgus (medial stability) <5mm Extension La degrees or less Radiographic evidence of joint damage: [0= normal; 1=minimal ; 2= some osteophytes , some narrowing ; 3= moderate osteophytes, significantnarrowing, mild deformity; 4= large osteophytes, marked narrowing, obvious deformity]: grade 3 PF, Grade 2 in other compartments Patella Tracking: Normal but with crepitus Skin Integrity: Normal Pulses Palpable: Right PT: Yes Right DP:Yes Motor/Sensory: Distal Motor: Normal Distal Sensory: Normal Quadriceps Strength: 4/5, some atrophy Knee Effusion: 0-1+ Ecchymosis: none Patella: Patellar apprehension test: negative Patellar compression test: positive Tenderness: medial joint line and medial facet of the patella IMAGING: X-rays of the right knee demonstrate joint space narrowing, subchondral sclerosis and shows DJD changes, likely chronic and most notable in the PF compartment as well as medial compartment. ASSESSMENT AND PLAN:Ms. Bueno is a 55 y.o. year old female with moderate osteoarthritis of her right knee. We had a long discussion with the patient regarding the nature of arthritis and potential treatmentoptions. We discussed her symptoms are most likely related to her significant patellofemoral as well as medial compartment arthritis. She does have some atrophy of her quads bilaterally and we did recommend initiation of physical therapy for which she was provided a prescription. We discussed partic ularly working on abductor strengthening, core strengthening, and quadricep strengthening. Additionally we discussed potential for repeat injection. At this time she is not particularly interested vida repeat corticosteroid injection due to lack of response previously and concerns over multiple steroid injections. We discussed potential for hyaluronic acid injection which the patient is interested in pursuing. We will pursue prior authorization for this and have the patient return to clinic following approval. In the meantime she will continue with physical therapy and conservative management. We did discuss ultimately a total knee replacement may provide her with the most longstanding paincontrol but that it is worthwhile to pursue these nonoperative options which come with lower overall risk. The patient is in agreement with this plan. Josefina Martinez MD [facility] Orthopaedic Surgery Orthopaedic Surgery PGY-5 * Maninder Payne MD - 06/27/2021 10:50 AM EST I saw and evaluated the patient. I was integral in formulating the plan as outlined. MANINDER PAYNE MD documented in this encounter Plan of Treatment Scheduled Referrals Name Type Priority Associated Diagnoses Orde r Schedule Referral to Physical Therapy Outpatient Referral Routine Arthritis of right knee Ordered: 06/27/2021 documented as of this encounter Visit Diagnoses Diagnosis Tear of medial meniscus of right knee, unspecified tear type, unspecified whether old or current tear, subsequent encounter Arthritis of right knee Unspecified arthropathy, lower leg documented in this encounter Care Teams Analytics Analyst Relationship Specialty Start Date End Date Marbella Francisco PA [address] [place] [id number] PCP - General Family Medicine 07/23/18 08/04/23 documented as of this encounter
--- OUTSIDE RECORDS SUMMARY | 2024-03-11 16:25 | XMS_ITS | Encounter Summary ---
Author Organization [facility] [place] [address] Care Team Providers Care Rotor Coil Taper Name Role Phone Marbella Francisco Primary Care Provider [phone] Reason for Referral * Diagnostic Test (Routine) - Closed Specialty Diagnoses / Procedures Referred By Contac t Referred To Contact Cardiology Diagnoses Dilated congestive cardiomyopathy Procedures Echocardiogram Transthoracic([facility] or [facility]) Jose Luis Smith MD [facility] [place] [address] [facility] [place] [address] Referral ID Status Reason Start Date Expiration Date V isits Requested Visits Authorized [id number] Closed Specialty Service Requested 01/25/2021 01/25/2022 1 1 Encounter Details Date Type Department Care Team (Late st Contact Info) Description 01/25/2021 11:00 AM EDT Office Visit Cardiology at [address] [address] Brayden Hodges MD [facility] [address] Jose Luis Smith MD [facility] [place] [address] Chest pain, unspecified type; Dilated congestive cardiomyopathy Social History Tobacco Use Types Packs/Day Years Used Date Smoking Tobacco: Former Smokeless Tobacco: Never Comments:Only as a teenager Sex and Gender Information Value Date Recorded Sex Assigned at Not on file Gender Identity Not on file Sexual Orientation Not on file documented as of this encounter Last Filed Vital Signs Vital Sign Reading Time Taken Comments Blood Pressure 122/90 01/25/2021 11:06 AM EDT Pulse 85 01/25/2021 11:06 AM EDT Temperature - - Respiratory Rate - - Oxygen Saturation 99% 01/25/2021 11:06 AM EDT Inhaled Oxygen Concentration - - Weight 68 kg (150 lb) 01/25/2021 11:06 AM EDT Height 167.6 cm (5' 6) 01/25/2021 11:06 AM EDT Body Mass Index 24.21 01/25/2021 11:06 AM EDT documented in this encounter Progress Notes * Jose Luis Smith MD - 01/25/2021 11:00 AM EDT Images from the original note were not included. [facility] [place] [id number] Radha Bueno [id number] 01/25/2021 REFERRING PROVIDER: Marbella Francisco REASON FOR CONSULTATION: chest pain HISTORY OF PRESENT ILLNESS: Ms. 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 She moved to [place] back in 2016. Previously in [place], [place]. States that around age 30, she had issue with her pelvic organs (?hysterectomy) and it was discovered that she had heart failure and possibly dilated CM. She reports that her EF was 10%. Since that time, she had recovered her EF and done well. Previously seen by [facility] program specialist Dr. Crawley. 07/2016 stress echo was negative for ischemia. 10/09/2016- Had [facility] showing no coronary disease. She reports that she has a lot of stressors this year, starting around August 2020. Has had development of chest discomfort around her L breast area, tender to palpation, also with L shoulder discomfort and scapular pain. Endorses that she does sleep on that L side antecubitally sometimes. No SOB, dizziness, syncope. She is very remote smoker. Alcohol use, around 8 oz a night. No illicits. Used todo horseback riding. No problems with exertion or physical activity, has been slightly more sedentary d/t covid epidemic. ROS otherwise negative except per hpi PROBLEM LIST Patient Active Problem List Diagnosis ??? Chest pain, unspecified ??? Bilateral chronic knee pain PAST MEDICAL HISTORY: Cardiomyopathy HLD Hypertension REVIEW OF SYSTEMS: Negative except per HPI FAMILY HISTORY: Family History Problem Relation Age of Onset ??? Anesthesia Reaction Neg Hx ??? Breast Cancer Neg Hx SOCIAL HISTORY: Social History Socioeconomic History ??? Marital status: Spouse name: Not on file ??? Number of children: Not on file ??? Years of education: Not on file ??? Highest education level: Not on file Occupational History ??? Not on file Tobacco Use ??? Smoking status: Former Smoker ??? Smokeless tobacco: Never Used ??? Tobacco comment: Only as a teenager Substance and Sexual Activity ??? Alcohol use: Not on file ??? Drug use: Not on file ??? Sexual activity: Not on file Other Topics Concern ??? Not on file Social History Narrative ??? Not on file Social Determinants of Health Financial Resource Strain: ??? Difficulty of Paying Living Expenses: Not on file Food Insecurity: ??? Worried About Running Out of Food in the Last Year: Not on file ??? Ran Out of Food in the Last Year: Not on file Transportation Needs: ??? Lack of Transportation (Medical): Not on file ??? Lack of Transportation (Non-Medical): Not on file Physical Activity: ??? Days of Exercise per Week: Not on file ??? Minutes of Exercise per Session: Not on file MEDICATIONS: Current Outpatient Medications Medication Sig Dispense Refill ??? naproxen sodium (ALEVE) 220 mg Capsule Take by mouth. ??? amLODIPine-benazepril (LOTREL) 5-20 mg Capsule Take 1 capsule by mouth daily. ??? VENTOLIN HFA 90 mcg/actuation HFA Aerosol Inhaler ??? ranitidine (ZANTAC) 150 mg Tablet Take 1 tablet by mouth 2 times daily. 180 tablet 3 No current facility-administered medications for this visit. ALLERGIES: Unable to find [unclassified drug] PHYSICAL EXAMINATION: Vital Signs: BP 122/90 Pulse 85 Ht 167.6 cm (5' 6) Wt 68 kg (150 lb) SpO2 99% BMI 24.21 kg/m?? Exam Details: General - No acute distress. Alert and oriented to person, place and time. ENT - Mouth moist without lesions. Eyes - EOMI. Not jaundiced. Noninjected. Neck - No lymphadenopathy. No thyromegaly. JVD normal. No carotid bruit bilaterally. Lungs - Clear to auscultation bilaterally. Heart - RRR. Normal S1,S2. No audible murmurs, gallops or rubs. Abdomen/GI - Soft, nontender, normal active bowel sounds, neg hsm or masses. Extremities - Extremities are symmetric. No peripheral edema. 2+ bilateral femoral, popliteal, DP and PT pulses. DATA: CBC: No results for input(s): WBC, HGB, PLATELET in the last 7068 hours. Chemistry: No results for input(s): NA, K, CL, CO2, BUN, CREATININE, GLUCOSE in the last 7068 hours. No results for input(s): CALCIUM, MAGNESIUM, PHOS in the last 7068 hours. LFT's: No results for input(s): BILITOT, BILIDIR, ALBUMIN, ALKPHOS, ALT, AST in the last 7068 hours. Coags: No results for input(s): PT, INR, PTT, FIBRINOGEN, DDIMER in the last 168 hours. Invalid input(s): THROMBIN TIME Cardiac enzymes: No results for input(s): TROPONINT, CK in the last 7068 hours. Endocrine: No results for input(s): TSH, CORTISOL in the last 7068 hours. Invalid input(s): [id number] Heme: No results for input(s): LDH, HAPTOGLOBIN, URICACID in the last 168 hours. Lipids: Lipid Panel ECG: EK01/25/2021 Normal sinus rhythm Nonspecific T wave abnormality Abnormal ECG No previous ECGs available Zio: None Echocardiogram: From stress echo 10/29/2019 Findings Rest: ?? Study Quality: Adequate ?? Left Ventricle: The left ventricular chamber size is normal. There is normal global left ventricular systolic function. Ejection fraction is estimated to be 60%. There are no left ventricular segmental wall motion abnormalities. Left ventricular diastolic function is abnormal. The left ventricular diastolic filling pattern is consistent with impaired LV relaxation. Doppler assessment is consistent with normal left sided filling pressure. ?? Right Ventricle: The right ventricle is normal in size. Right ventricular global systolic function is normal. The estimated pulmonary artery systolic pressure is 18 mmHg. Plus RAP. ?? Aortic Valve: The aortic valve is tricuspid. There is no evidence of aortic valve thickening. Systolic excursion of the aortic valve is normal. There is no evidence of aortic valve stenosis. There is no evidence of aortic regurgitation. ?? Mitral Valve: The mitral valve leaflets appear normal. There is trace mitral regurgitation present. ?? Tricuspid Valve: The tricuspid valve leaflets are morphologically normal. There is trace tricuspid regurgitation present. ?? Pericardium: There is no pericardial effusion. ?? Aorta: The aortic root is normal in size. There is mild dilatation of the ascending aorta. 3.9cm Stress test: 10/29/2019 - stress echo SUMMARY: ?? 1. IMPRESSION: Normal stress echo, without evidence of ischemia at a diagnostic level of stress. Good exercise tolerance. 2. REST: Resting ECG showed normal sinus rhythm with occasional PVCs. Resting echo showed normal global left ventricular systolic function. Ejection fraction was 60%. There were no left ventricular segmental wall motion abnormalities. See below for additional resting echo findings. 3. STRESS: The patient followed the Ghassan protocol for 8:57, attaining a peak workload of 10 METs at a heart rate of 157 bpm (94% MPHR). The study was terminated because of dypnea. Oxygen saturation was 96%. The patient did not express feelings of chest discomfort. There were occasional ventricular premature contractions. There was no significant ST deviation on ECG. With stress, echo showed that global LV systolic function augmented, and all LV segments became appropriately hyperdynamic. ?? Cath: 10/09/2016 ASSESSMENT: 55 F w/ history HTN, asthma, GERD presenting for evaluation of chest pain. Recent 10/2019 stress echo negative for ischemia or LV dysfunction on rest. Prev no coronary disease on [facility] in 2016. Appears MSK however given prev history, will r/o valvular dz and ventricular dysfunction with TTE PLAN: #Chest pain -Atypical, likely MSK given history. Prev neg C in 2016, normal stress and surface echo last year10/2019. No ischemic findings on ekg -TTE to r/o valvular issues #Hx dilated CM #HFrecEF, now 60% in 10/2019 -Repeat TTE today. If normal, do every 2-3 years Thank you for allowing us to participate in the care of this patient. The patient was seen and discussed with Dr. Hodges RTC in 9-12 mo Jose Luis Smith MD [facility] Senior Storage Administrator, PGY-4 Pager #[phone] Can Epic message me 7AM-4PM on weekdays for non-urgent matters * Brayden Hodges MD - 01/25/2021 11:00 AM EDT I have seen the patient in person and reviewed the above history and I agree with the details as written by Dr. Ovidio Smith (food assembler). The assessment and plan were formulated in discussion withme and I agree with them as documented. documented in this encounter Plan of Treatment Not on file documented as of this encounter Procedures Procedure Name Priority Date/Time Associated Diagnosis Comments EKG 12-LEAD Routine 01/25/2021 11:25 AM EDT Chest pain, unspecified type documented in this encounter Results * ECHO COMPLETE (04/09/2021 2:38 PM EST) EF 56 HEARTLAB SYSTEM Anatomical Region Laterality Modality Other 04/09/2021 Narrative 04/09/2021 3:39 PM EST Procedure: ?Transthoracic Echocardiogram Patient: ?SHAUN DUNHAM ?(Age): 1965(55y) Med Rec#: ? [id number] ?Sex: ?F ? Site Loc: ? [facility] ?Ht / Wt: ??168(cm)/68(kg) Pt. Loc: ?Echo Lab ?BSA: ?1.77 Study Date: ?? 04/09/2021 ?Pt. Type: Outpatient Tape: ? Referring: Brayden Hodges ([id number]) Referring: ELYSE Reading: Dinesh Trejo ([id number]) Executor Of Estate: Francisco Izaguirre Interpreting Fellow: Neri De La Cruz ([id number]) Diagnosis: *Dilated cardiomyopathy (I42.0) Rhythm: ? Sinus BP: ? 130/84 SUMMARY: 1. The left ventricular chamber size is normal. There is normal global left ventricular systolic function. The quantitative left ventricular ejection fraction by biplane Broussard's method is 56%. There are no left ventricular segmental wall motion abnormalities. The left ventricular diastolic filling pattern is consistent with impaired LV relaxation. 2. The right ventricle is normal in size. Right ventricular global systolic function is normal. 3. There is no hemodynamically significant valve disease. 4. There is mild dilatation of the aortic root (4.0 cm). There is moderate dilatation of the ascending aorta (4.0 cm). 5. Compared to stress echo dated 10/29/2019, there are no significant changes. Findings ? : Study Quality: ? Adequate Left Ventricle: ? The left ventricular chamber size is normal.LVEDV 45 ml/m2 ?Left ventricular wall thickness is normal. ?There is normal global left ventricular systolic function.GLS -16.4% ?The quantitative left ventricular ejection fraction by biplane Broussard's method is 56%. ?There are no left ventricular segmental wall motion abnormalities. ?The left ventricular diastolic filling pattern is consistent with impaired LV relaxation. Left Atrium: ? The left atrium is mildly dilated.40 ml/m2 Right Ventricle: ? The right ventricle is normal in size. ?Right ventricular global systolic function is normal. ?Pulmonary artery hypertension could not be assessed due to inadequate tricuspid regurgitation jet. Right Atrium: ? The right atrium is mildly dilated. Aortic Valve: ? The aortic valve is tricuspid. ?There is no evidence of aortic valve thickening. ?There is no evidence of aortic valve stenosis. ?There is no evidence of aortic regurgitation. Mitral Valve: ? The mitral valve leaflets appear normal. ?There is no evidence of mitral stenosis. ?There is trace mitral regurgitation present. Tricuspid Valve: ? The tricuspid valve leaflets are morphologically normal. ?There is no tricuspid valve stenosis. ?There is trace tricuspid regurgitation present. Pulmonic Valve: ? The pulmonic valve is not well visualized. ?The pulmonic valve is probably normal. ?There is no pulmonic stenosis present. ?There is trace pulmonic regurgitation present. Pericardium: ? There is no pericardial effusion. ?No pleural effusion is present. Aorta: ? There is mild dilatation of the aortic root.4.0 cm ?There is moderate dilatation of the ascending aorta.4.0 cm Venous: ? The inferior vena cava appears normal in size. ?There is a greater than 50% respiratory change in the inferior vena cava dimension. Misc: ? Two-dimensional echo, spectral Doppler and color Doppler performed. ?Three-dimensional echocardiogram performed. ?Myocardial Strain Imaging Chambers 2D ?Value ?Units (Range) ? IVSd (2D) ? 0.98 ? cm ? LVPWd (2D) ?1.04 ? cm ? IVS:LVPW ratio (2D) 0.94 ? ratio ? RWT (2D) ?0.44 ? ratio ? RWT PW (2D) ? 0.46 ? ratio ? LVIDd (2D) ?4.52 ? cm ? LVIDs (2D) ?3.24 ? cm ? LVIDd (2D) index ?2.55 ? cm/m2 ? LVIDs (2D) index ?1.83 ? cm/m2 ? LV FS (2D) ?28.34 ?% ? EF Teichholz (2D) ?? 54.84 ?% ? Ao root diameter (2D3.97 ? cm (2.1 - 3.6) ? Ascending Ao ?3.96 ? cm (2 - 3.5) ? Volumes/Mass ?Value ?Units (Range) ? LA ESV BP (A/L) inde40.14 ?ml/m2 ? RA AREA 4CH ? 18 ? cm2 ? LV ESV SP 4CH (MOD) 33.61 ?ml ? LV ESV SP 2CH (MOD) 33.32 ?ml ? LV EDV BP ? 79.55 ?ml ? LV ESV BP ? 34.67 ?ml ? LV EDV BP index ? 44.89 ?ml/m2 ? LV ESV BP index ? 19.56 ?ml/m2 ? BP EF (MOD) ? 56.42 ?% ? LV mass (2D) ?155.83 ? g ? LV mass (2D) index ??87.93 ?g/m2 ? Diastolic/Systolic Function ?Value ?Units (Range) ? MV E-wave Vmax ?0.72 ? m/sec ? MV deceleration tawu934.99 ? msec ? MV A-wave Vmax ?0.93 ? m/sec ? MV E:A ratio ?0.78 ? ratio ? LV septal e' Vmax ?? 0.04 ? m/sec ? LV lateral e' Vmax ??0.07 ? m/sec ? LV average e' Vmax ??0.06 ? m/sec ? LV E:e' septal ratio18.1 ? ratio ? LV E:e' lateral rati10.34 ?ratio ? LV average E:e' rati13.16 ?ratio ? Aortic Valve ?Value ?Units (Range) ? LVOT diameter ? 2.15 ? cm ? LVOT Vmax ? 0.97 ? m/sec ? LVOT VTI ?20.81 ?cm ? LVOT peak gradient ??3.73 ? mmHg ? LVOT mean gradient ??2.35 ? mmHg ? SV LVOT ? 75.4 ? ml ? CO LVOT ? 6.17 ? l/min ? Cardiac index ? 3.48 ? l/min/m2 ? Tricuspid Valve ?Value ?Units (Range) ? TAPSE ? 2.2 ?cm ? RV lateral s' Vmax ??0.17 ? m/sec ? TR Vmax ? 2.27 ? m/sec ? TR peak gradient ?20.64 ?mmHg ? This report has been electronically signed by: Dinesh Trejo MD ? 04/09/2021 15:38:59 Images reviewed and interpretation verified [facility] Procedure Note Dinesh Trejo MD - 04/09/2021 Procedure: Transthoracic Echocardiogram Patient: SHAUN MARINO(Age): 1965(55y) Med Rec#: [id number] Sex: F Site Loc: [facility] Ht / Wt: 168(cm)/68(kg) Pt. Loc: Echo Lab BSA: 1.77 Study Date: 04/09/2021 Pt. Type: Outpatient Tape: Referring: Brayden Hodges ([id number]) Referring: ELYSE Reading: Dinesh Trejo ([id number]) Executor Of Estate: Francisco Izaguirre Interpreting Fellow: Neri De La Cruz ([id number]) Diagnosis: *Dilated cardiomyopathy (I42.0) Rhythm: Sinus BP: 130/84 SUMMARY: 1. The left ventricular chamber size is normal. There is normal global left ventricular systolic function. The quantitative left ventricular ejection fraction by biplane Broussard's method is 56%. There are no left ventricular segmental wall motion abnormalities. The left ventricular diastolic filling pattern is consistent with impaired LV relaxation. 2. The right ventricle is normal in size. Right ventricular global systolic function is normal. 3. There is no hemodynamically significant valve disease. 4. There is mild dilatation of the aortic root (4.0 cm). There is moderate dilatation of the ascending aorta (4.0 cm). 5. Compared to stress echo dated 10/29/2019, there are no significant changes. Findings : Study Quality: Adequate Left Ventricle: The left ventricular chamber size is normal.LVEDV 45 ml/m2 Left ventricular wall thickness is normal. There is normal global left ventricular systolic function.GLS -16.4% The quantitative left ventricular ejection fraction by biplane Broussard's method is 56%. There are no left ventricular segmental wall motion abnormalities. The left ventricular diastolic filling pattern is consistent with impaired LV relaxation. Left Atrium: The left atrium is mildly dilated.40 ml/m2 Right Ventricle: The right ventricle is normal in size. Right ventricular global systolic function is normal. Pulmonary artery hypertension could not be assessed due to inadequate tricuspid regurgitation jet. Right Atrium: The right atrium is mildly dilated. Aortic Valve: The aortic valve is tricuspid. There is no evidence of aortic valve thickening. There is no evidence of aortic valve stenosis. There is no evidence of aortic regurgitation. Mitral Valve: The mitral valve leaflets appear normal. There is no evidence of mitral stenosis. There is trace mitral regurgitation present. Tricuspid Valve: The tricuspid valve leaflets are morphologically normal. There is no tricuspid valve stenosis. There is trace tricuspid regurgitation present. Pulmonic Valve: The pulmonic valve is not well visualized. The pulmonic valve is probably normal. There is no pulmonic stenosis present. There is trace pulmonic regurgitation present. Pericardium: There is no pericardial effusion. No pleural effusion is present. Aorta: There is mild dilatation of the aortic root.4.0 cm There is moderate dilatation of the ascending aorta.4.0 cm Venous: The inferior vena cava appears normal in size. There is a greater than 50% respiratory change in the inferior vena cava dimension. Misc: Two-dimensional echo, spectral Doppler and color Doppler performed. Three-dimensional echocardiogram performed. Myocardial Strain Imaging Chambers 2D Value Units (Range) IVSd (2D) 0.98 cm LVPWd (2D) 1.04 cm IVS:LVPW ratio (2D) 0.94 ratio RWT (2D) 0.44 ratio RWT PW (2D) 0.46 ratio LVIDd (2D) 4.52 cm LVIDs (2D) 3.24 cm LVIDd (2D) index 2.55 cm/m2 LVIDs (2D) index 1.83 cm/m2 LV FS (2D) 28.34 % EF Teichholz (2D) 54.84 % Ao root diameter (2D3.97 cm (2.1 - 3.6) Ascending Ao 3.96 cm (2 - 3.5) Volumes/Mass Value Units (Range) LA ESV BP (A/L) inde40.14 ml/m2 RA AREA 4CH 18 cm2 LV ESV SP 4CH (MOD) 33.61 ml LV ESV SP 2CH (MOD) 33.32 ml LV EDV BP 79.55 ml LV ESV BP 34.67 ml LV EDV BP index 44.89 ml/m2 LV ESV BP index 19.56 ml/m2 BP EF (MOD) 56.42 % LV mass (2D) 155.83 g LV mass (2D) index 87.93 g/m2 Diastolic/Systolic Function Value Units (Range) MV E-wave Vmax 0.72 m/sec MV deceleration myzu768.99 msec MV A-wave Vmax 0.93 m/sec MV E:A ratio 0.78 ratio LV septal e' Vmax 0.04 m/sec LV lateral e' Vmax 0.07 m/sec LV average e' Vmax 0.06 m/sec LV E:e' septal ratio18.1 ratio LV E:e' lateral rati10.34 ratio LV average E:e' rati13.16 ratio Aortic Valve Value Units (Range) LVOT diameter 2.15 cm LVOT Vmax 0.97 m/sec LVOT VTI 20.81 cm LVOT peak gradient 3.73 mmHg LVOT mean gradient 2.35 mmHg SV LVOT 75.4 ml CO LVOT 6.17 l/min Cardiac index 3.48 l/min/m2 Tricuspid Valve Value Units (Range) TAPSE 2.2 cm RV lateral s' Vmax 0.17 m/sec TR Vmax 2.27 m/sec TR peak gradient 20.64 mmHg This report has been electronically signed by: Dinesh Trejo MD 04/09/2021 15:38:59 Images reviewed and interpretation verified [facility] Brayden Hodges MD ECHO ORDERABLES * EKG 12 Lead (01/25/2021 11:25 AM EDT) Ventricular rate 77 BPM MUSE SYSTEM Atrial Rate 77 BPM MUSE SYSTEM P-R Interval 172 ms MUSE SYSTEM QRS Duration 88 ms MUSE SYSTEM Q-T Interval 402 ms MUSE SYSTEM QTC Calculated (Bezet) 454 ms MUSE SYSTEM Calculated P [place] 18 degrees MUSE SYSTEM Calculated R [place] 10 degrees MUSE SYSTEM Calculated T [place] 56 degrees MUSE SYSTEM INTERPRETATION Normal sinus rhythm Nonspecific T wave abnormality Abnormal ECG No previous ECGs available Confirmed by MD GRAY ARMIN ([id number]) on 01/25/2021 5:44:37 PM MUSE SYSTEM 01/25/2021 11:2 5 AM EDT 01/25/2021 5:44 PM EDT Brayden Hodges MD ECG ORDERABLES MUSE SYSTEM documented in this encounter Visit Diagnoses Diagnosis Chest pain, unspecified type Dilated congestive cardiomyopathy Other primary cardiomyopathies Dilated congestive cardiomyopathy Other primary cardiomyopathies documented in this encounter Care Teams Rotor Coil Taper Relationship Specialty Start Date End Date Marbella Francisco PA [address] [place] [id number] PCP - General Family Medicine 07/23/18 08/04/23 documented as of this encounter
--- OUTSIDE RECORDS SUMMARY | 2024-03-11 16:25 | XMS_ITS | Encounter Summary ---
[place] [address] Care Team Providers Care Deputy Grand Jury Name Role Phone Yudy Hernandez MD Primary Care Provider [phone] Reason for Referral * Surgical (Routine) - Canceled Specialty Diagnoses / Procedures Referred By Contac t Referred To Contact Gastroenterology Diagnoses Hiatal hernia Procedures TEST ONLY Kaila Montoya MD [address] [place] [address] [facility] [address] [place] [address] Referral ID Status Reason Start Date Expiration Date Visits Requested Visits Authorized [id number] Canceled Test Only PCP Updated and/or Approved 08/05/2023 08/04/2024 1 1 Encounter Details Date Type Department Care Team (Late st Contact Info) Description 08/05/2023 Transcribe Orders eDH Incoming Referrals [phone] Kaila Montoya MD [address] [place] [address] Hiatal hernia Social History Tobacco Use Types Packs/Day Years [...] as of this encounter Plan of Treatment Scheduled Referrals Name Type Priority Associated Diagnoses Orde r Schedule REFERRAL TO ENDOSCOPY PROCEDURE Outpatient Referral Routine Hiatal hernia Ordered: 08/05/2023 documented as of this encounter Visit Diagnoses Diagnosis Hiatal hernia Diaphragmatic hernia without mention of obstruction or gangrene documented in this encounter Care Teams Deputy Grand Jury Relationship Specialty Start Date End Date Yudy Hernandez MD [address] [place] [id number] PCP - General Family Medicine 08/05/23 documented as of this encounter
--- OUTSIDE RECORDS SUMMARY | 2024-03-11 16:25 | XMS_ITS | Encounter Summary ---
[facility] [place] [address] Care Team Providers Care Child Development Assistant Name Role Phone Marbella Francisco Primary Care Provider Encounter Details Date Type Department Care Team (Late st Contact Info) Description 11/23/2019 2:00 PM EDT [place] [phone] Maninder Jennings, PT Acute pain of left knee; Acute pain of right knee Social History Tobacco Use Types Packs/Day Years Used Date Smoking Tobacco: Former Smokeless Tobacco: Never Comments:Only as a teenager Sex and Gender Information Value Date Recorded Sex Assigned at Not on file Gender Identity Not on file Sexual Orientation Not on file documented as of this encounter Miscellaneous Notes * Treatment - Therapy - Maninder Jennings, PT - 11/23/2019 2:00 PM EDT Images from the original note were not included. Physical Therapy Note - Sports Medicine Clinic brief, PT eval and instruction therapeutic exercise. DIAGNOSIS and pertinent co-morbidities: 1. Acute pain of left knee 2. Acute pain of right knee DATE of injury: Acute on Chronic Referring Provider: Jackelin Jorge CHIEF COMPLAINT: Bilateral Knee Pain, Left > Right Total treatment time: 20 minutes Total timed code treatment: 15 minutes History of Current Problem: Radha Bueno is a 54 y.o. female seen today in Sports Medicine clinic for a brief PT consult and instruction in a home exercise program for bilateral knee pain, Left > Right. Patient was seen immediately prior to this visit by Jackelin Jorge and provided bilateral cortisone injections and referred the patient for instruction in a home exercise program. She reports initially injuring her left knee several years ago when falling on her stairs at home. She received acupuncture treatmentand the knee gradually improved. Several weeks ago she re-aggravated the knee while hiking with herpersonal boxing trainer. She reports on-set of knee pain 2 days following her hike with increased posterior knee swelling. She has been managing the her pain and swelling with self massageand RICE which seems to help. She has also been using a topical CBD ointment. She continues to have medial left knee pain with aew-xh-iothd transfers,squatting, and pivoting motions. XR KNEE STANDING ALIGNMENT AP LAT [place] SKYLINE BILAT - 11/23/2019 ? IMPRESSION 1. Bilateral knee osteoarthropathy. ?? 2. Mechanical axes the bilateral legs, as described. Functional Limitations: Squatting, lifting, hiking, exercise Objective: PAIN: at best: 4/10; at worst: 7/10 Located: medial knee; Describes pain as: aching and sharp OBSERVATION: Normal knee alignment PALPATION: Pain with palpation of left knee medial joint line, popliteal space and medial hamstring ROM: Full knee ROM bilaterally, 0-130 deg STRENGTH: Normal strength in quads, hamstrings, and plantar flexors. Decreased hip abductor strength 4/5 bilaterally. FLEXIBILITY: decreased flexibility: hamstring and gastroc SPECIAL TESTS: refer to ortho note for more details Assessment: Radha Bueno is a 54 y.o. female seen for a PT consult and instruction in a home exercise program. We reviewed a stretching and strengthening program today to address her symptoms and improve her knee function and strength. She will plan to complete this independently and incorporate low-impact exercise with her boxing trainer. She is welcome to follow-up for further physical therapy as needed. Clinical presentation: Stable Evolving Unstable x Clinical decision making of low complexity using standardized patient assessment instrument and measurable assessment of functional outcome. Plan: Instruction in an independent HEP. Follow-up PT PRN MANINDER JENNINGS PT, DPT, OCS documented in this encounter Plan of Treatment Not on file documented as of this encounter Visit Diagnoses Diagnosis Acute pain of left knee Acute pain of right knee documented in this encounter Care Teams Child Development Assistant Relationship Specialty Start Date End Date Marbella Francisco PA [address] [place] [phone] PCP - General Family Medicine 07/23/18 08/04/23 documented as of this encounter
--- OUTSIDE RECORDS SUMMARY | 2024-03-11 16:25 | XMS_ITS | Encounter Summary ---
[place] [address] Care Team Providers Care Analyst Business Analysis Name Role Phone Marbella Francisco Primary Care Provider [phone] Encounter Details Date Type Department Care Team (Late st Contact Info) Description 09/27/2019 Telephone Non[place] [phone] Catrachita Rodriguez Social History Tobacco Use Types Packs/Day Years Used Date Smoking Tobacco: Former Smokeless Tobacco: Never Comments:Only as a teenager Sex and Gender Information Value Date Recorded Sex Assigned at Not on file Gender Identity Not on file Sexual Orientation Not on file documented as of this encounter Miscellaneous Notes * Telephone Encounter - Catrachita Rodriguez - 09/27/2019 12:05 PM EDT LM to schedule stress test documented in this encounter Plan of Treatment Not on file documented as of this encounter Visit Diagnoses Not on filedocumented in this encounter Care Teams Analyst Business Analysis Relationship Specialty Start Date End Date Marbella Francisco PA [address] [place] [phone] PCP - General Family Medicine 07/23/18 08/04/23 documented as of this encounter
--- OUTSIDE RECORDS SUMMARY | 2024-03-11 16:25 | XMS_ITS | Encounter Summary ---
[facility] [place] [id number] Care Team Providers Care Break And Load Operator Name Role Phone Marbella Francisco Primary Care Provider Reason for Visit * Reason Comments Bilateral Hand Pain Thumbs * Consultation (Routine) - Closed Specialty Diagnoses / Procedures Referred By Hayley lay Referred To Contact Orthopaedics Diagnoses Osteoarthritis of thumb, unspecified laterality Melania Stephen MD [facility] [place] [address] [facility] [address] [place] [phone] Referral ID Status Reason Start Date Expiration Date V isits Requested Visits Authorized [id number] Closed Consult, Test & Treat 07/23/2018 07/23/2019 1 1 Encounter Details Date Type Department Care Team (Latest Contact Info) Description 09/30/2018 10:30 AM EDT Office [place] [phone] Sharad Hoffman MD [facility] DR ORTHOPAEDIC [place] [address] Arthritis of carpometacarpal (CMC) joint of both thumbs Social History Tobacco Use Types Packs/Day Years Used Date Smoking Tobacco: Former Smokeless Tobacco: Never Comments:Only as a teenager Sex and Gender Information Value Date Recorded Sex Assigned at Not on file Gender Identity Not on file Sexual Orientation Not on file documented as of this encounter Last Filed Vital Signs Vital Sign Reading Time Taken Comments Blood Pressure 116/85 09/30/2018 9:57 AM EDT Pulse 96 09/30/2018 9:57 AM EDT Temperature - - Respiratory Rate - - Oxygen Saturation - - Inhaled Oxygen Concentration - - Weight 72.1 kg (159 lb) 09/30/2018 9:57 AM EDT Height 167.6 cm (5' 6) 09/30/2018 9:57 AM EDT Body Mass Index 25.66 09/30/2018 9:57 AM EDT documented in this encounter Progress Notes * Srikanth Monge PA - 09/30/2018 10:30 AM EDT PATIENT NAME: Radha Bueno AGE: 52 y.o. MR#: [id number] DATE OF VISIT: 09/30/2018 DATE OF INJURY/ONSET: Chronic STAFF: Dr. Hoffman CHIEF COMPLAINT: Bilateral thumb pain HISTORY OF PRESENT ILLNESS: Ms. Bueno is a right hand dominant 52 y.o. female who comes into clinic today for evaluation of bilateral thumb pain. She states her right thumb began causing her pain about three years ago and the left began bothering her in the winter of last year and has become progressively worse to the point they are now equal. The patient has done both soft and hard splinting, topical ointments, occasional Tylenol and anti-inflammatory medication, none of which have provided her long-term pain relief. The patient notes that driving and cold weather seem to increase her pain. She has received 1 cortisone injection into the right hand by Dr. Mc on [place]. She reports this provided her about 3 weeks on relief and was completed in the office. The patient denies an injury to either hand, numbness and tingling or any triggering of her digits. Medications and Allergies were reviewed in eD-[facility] PAST MEDICAL HX: No past medical history on file. PAST SURGICAL HX: No past surgical history on file. SOCIAL HX: Social History Occupational History ??? Not on file Tobacco Use ??? Smoking status: Former Smoker ??? Smokeless tobacco: Never Used ??? Tobacco comment: Only as a teenager Substance and Sexual Activity ??? Alcohol use: Not on file ??? Drug use: Not on file ??? Sexual activity: Not on file ROS: Pertinent items are noted in HPI. General Health, Prior Treatments, PreExisting Condition, Health Habits, About You 09/30/2018 PROMIS-10 General Health Fair PROMIS-10 Quality of Life Good PROMIS-10 Physical Health Good PROMIS-10 Mental Health Fair PROMIS-10 Social Activity Good PROMIS-10 Everyday Activities Completely PROMIS-10 Pain 5 PROMIS-10 Fatigue Moderate PROMIS-10 Social Roles Very Good PROMIS-10 Anxious or Depressed Sometimes PROMIS PHYSICAL SCORE (range 16-68) 44.9 PROMIS MENTAL SCORE (range 21-68) 41.1 Treatments Tried Regular exercise, Heat and ice therapy, Brace, Acupuncture, Medicines applied on the skin (topical), Oral natural supplements (e.g chondroitin and glucosamine), Over the counter anti-inflammatory drugs (e.g Advil, Aspirin, Aleve), Injection of steroids or cortisone Alzheimers or dementia No Cirrohosis or liver disease No HIV/AIDS No Pain in more than one joint in legs Yes Back or neck pain Yes Heart attack No Heart failure No Unclog/bypass leg arteries No Stroke, blood clot, TIA No Asthma Yes Take medication for asthma Yes Emphysema, chronic bronchities, or COPD No Stomach ulcers/peptic ulcer disease Yes Condition diagnosed by endoscopy Yes Diabetes No Poor kidney function No Rheumatic condtions No Cancer No Weight (lbs) 159 Height (feet) 5 feet Height (Inches) 6 BMI 25.66 (Overweight) Ever used tobacco products Yes Tobacco frequency Never WHO - Tobacco Advice 0 (You are at low risk of health and other problems from your current pattern of use.) Ever used alcoholic beverages Yes Alcohol frequency Weekly WHO - Alcohol Advice 4 (You are at risk of health and other problems from your current pattern of alcohol use.) Live Alone No Marital situation Schooling Some college or 2 - year degree Combined Household Income $50,000 to less than $75,000 # People Supported 2 Portuguese, , Yes, other Portuguese// Race or , Black or , White Health Literacy Extremely Currently working Yes Current job situation Part-time for other reasons PHYSICAL EXAM: Ms. Bueno is a 52 y.o. female who is alert, appears stated age and cooperative. Inspection: Arthritic changes present over the base of both thumbs. Palpation: She has point tenderness over the CMC joint of both thumbs. ROM/Strength: Patient has full flexion and extension as well as adduction and abduction of both thumbs. Orthopedic testing: Grind test- positive bilaterally. Neurovascular: Sensation and motor function are in tact along the median, ulnar, and radial nerve roots. Her hands are well perfused, distal radial pulse 2+. DIAGNOSTIC STUDIES: Xrays from today were personally reviewed and demonstrate moderate basal joint arthritis bilaterally. ASSESSMENT: Ms. Bueno presents with bilateral basal joint arthritis that is been present for over3 years. She has tried conservative treatment measures including splinting, topical ointments, edrx-ffc-[id number] analgesic medication and one cortisone injection into the right thumb. Patient complains of continued pain on a daily basis that is made worse with cold weather and driving. On exam she does have some arthritic changes over the CMC joint of both thumbs as well as a positive grind test. X-rays today demonstrate moderate basal joint arthritis bilaterally. While she has tried splinting in the past these were not custom made. We discussed that she could consider trying further splintingand these would be made by a hand therapist. Also her injection was completed in the office and notvia the x-ray department. Fluoroscopy-guided cortisone injections may also be reasonable to complete and could provide her better relief of pain. Risks associated with the injection including infection, bleeding, nerve, tendon, blood vessel injury, steroid flare, transient rise in blood glucose, ski n discoloration, and recurrence of pain. The patient was agreeable to this and bilateral injectionswere ordered. PLAN: She will return for follow up as needed and may call to schedule repeat injections in the future if she gets adequate pain relief. The patient understands to contact us if they have any other questions or concerns. I saw Ms. Bueno with Dr. Hoffman who agrees with this plan. The above documentation was completed using [employer] voice recognition software. documented in this encounter Plan of Treatment Not on file documented as of this encounter Results * XR Fluoro Guided [...] the number below. ? Electronically signed by: Sary Maldonado [facility] ([phone]), at 10/30/2018 3:27 PM Narrative 10/30/2018 3:27 PM EDT HISTORY: Left thumb pain and arthritis. LEFT THUMB CMC JOINT ??INJECTION UNDER FLUOROSCOPY TECHNIQUE: After an extensive conversation with the patient regarding risks and benefits, oral and written consent were obtained.? A pre- procedural time-out was performed, including review of the patient's relevant electronic medical record and allergies, as per [facility] protocol. The patient was placed supine on [...] space. 2. ??PAIN SCORE: ??Before: 10 ??After: ??10 3. Fluoroscopy time: 0.05 minutes 4. Medications: [...] relevant electronic medicalrecord and allergies, as per [facility] protocol. The patient was placed supine on [...] contact the number below. Electronically signed by: Sary Maldonado [facility]([phone]), at 10/30/2018 3:27 PM Sharad Hoffman MD IMG FLUORO ORDERABLE S [...] the number below. ? Electronically signed by: Sary Maldonado [facility] ([phone]), at 10/30/2018 3:25 PM Narrative 10/30/2018 3:25 PM EDT HISTORY: Right thumb pain and arthritis RIGHT THUMB CMC JOINT ??INJECTION UNDER FLUOROSCOPY TECHNIQUE: After an extensive conversation with the patient regarding risks and benefits, oral and written consent were obtained.? A pre- procedural time-out was performed, including review of the patient's relevant electronic medical record and allergies, as per [facility] protocol. The patient was placed supine on [...] the joint space. 2. ??PAIN SCORE: ??Before: 11/02 ??After: ??09/02 3. Fluoroscopy time: 0.22 minutes 4. Medications: [...] relevant electronic medicalrecord and allergies, as per [facility] protocol. The patient was placed supine on [...] contact the number below. Electronically signed by: Sary Maldonado [facility]([phone]), at 10/30/2018 3:25 PM Sharad Hoffman MD IMG FLUORO ORDERABLE S documented in this encounter Visit Diagnoses Diagnosis Arthritis of carpometacarpal (CMC) joint of both thumbs Arthritis of carpometacarpal (CMC) joint of both thumbs documented in this encounter Care Teams Break And Load Operator Relationship Specialty Start Date End Date Marbella Francisco PA [address] [place] [id number] PCP - General Family Medicine 07/23/18 08/04/23 documented as of this encounter
--- OUTSIDE RECORDS SUMMARY | 2024-03-11 16:25 | XMS_ITS | Encounter Summary ---
Author Organization [facility] [place] [address] Care Team Providers Care Manager Strategic Partnerships Name Role Phone Marbella Francisco Primary Care Provider Encounter Details Date Type Department Care Team (Late st Contact Info) Description 11/23/2019 12:15 PM EDT - 11/23/2019 11:59 PM EDT Hospital Encounter XRay at [address] [place] [address] Jackelin Jorge APRN [facility] [place] [address] Chronic pain of both knees Discharge Disposition: Home Social History Tobacco Use [...] Name Priority Date/Time Associated Diagnosis Comments XR KNEE STANDING ALIGNMENT AP LAT [place] SKYLINE BILAT Routine 11/23/2019 12:42 PM EDT Chronic pain of both knees documented in this encounter Results * XR Knee Standing Alignment AP Lat [place] Mack Bilat (11/23/2019 12:42 PM EDT) Anatomical Region Laterality Modality Bilateral Digital Radiogra phy Impressions 11/23/2019 1:42 PM EDT 1. ??Bilateral knee osteoarthropathy. 2. ??Mechanical axes the bilateral legs, as described. Thank you for letting us participate in the care of this patient. For questions regarding this report, please contact the number below. ? Electronically signed by: Shanika Gonzales [facility] ([phone]), at 11/23/2019 1:42 PM Narrative 11/23/2019 1:42 PM EDT EXAMINATION: XR KNEE STANDING ALIGNMENT AP LAT [place] SKYLINE BILAT CLINICAL HISTORY: Bilat knee pain (as entered by ordering provider in the order requisition) TECHNIQUE: Separate images of the pelvis, knees and feet were acquired in the AP projection with the patient standing. These images were stitched together to form a composite image of the pelvis and legs allowing for evaluation of lower extremity alignment in the weight bearing position. AP, Johnson, sunrise views of bilateral knees, lateral views of each knee. COMPARISON: None FINDINGS: Mechanical axis of the right leg passes 1.3 cm medial to the tibial eminence. Mechanical axis of the left leg passes 2.0 cm medial to the tibial eminence. Right: No focal soft tissue swelling. Probable small knee joint effusion. Narrowing of the lateral patellofemoral compartment with marginal osteophyte formation. Left: No focal soft tissue swelling. Small probable knee joint effusion. Mild lateral patellofemoral compartment narrowing. Small marginal osteophytes. Procedure Note Shanika Gonzales MD - 11/23/2019 EXAMINATION: XR KNEE STANDING ALIGNMENT AP LAT [place] SKYLINE BILAT CLINICAL HISTORY: Bilat knee pain (as entered by ordering provider in theorder requisition) TECHNIQUE: Separate images of the pelvis, knees and feet were acquired inthe AP projection with the patient standing. These images were stitched togetherto form a composite image of the pelvis and legs allowing for evaluation oflower extremity alignment in the weight bearing position. AP, Johnson, sunriseviews of bilateral knees, lateral views of each knee. COMPARISON: None FINDINGS: Mechanical axis of the right leg passes 1.3 cm medial to the tibialeminence. Mechanical axis of the left leg passes 2.0 cm medial to the tibialeminence. Right: No focal soft tissue swelling. Probable small knee jointeffusion. Narrowing of the lateral patellofemoral compartment with marginalosteophyte formation. Left: No focal soft tissue swelling. Small probable knee joint effusion.Mild lateral patellofemoral compartment narrowing. Small marginalosteophytes. IMPRESSION 1. Bilateral knee osteoarthropathy. 2. Mechanical axes the bilateral legs, as described. Thank you for letting us participate in the care of this patient. Forquestions regarding this report, please contact the number below. Electronically signed by: Shanika Gonzales [facility]([phone]), at 11/23/2019 1:42 PM Jackelin Jorge INSTRUCTOR PHYSICAL EDUCATION IMG DX ORDER JAYRO documented in this encounter Visit Diagnoses Diagnosis Chronic pain of both knees documented in this encounter Care Teams Manager Strategic Partnerships Relationship Specialty Start Date End Date Marbella Francisco PA [address] [place] [phone] PCP - General Family Medicine 07/23/18 08/04/23 documented as of this encounter
--- OUTSIDE RECORDS SUMMARY | 2024-03-11 16:25 | XMS_ITS | Encounter Summary ---
Author Organization [facility] [place] [place] [address] Care Team Providers Care Pillow Agent Name Role Phone Marbella Francisco Primary Care Provider [phone] Reason for Visit * Reason Comments Follow-up XR, CONT BILAT KNEE PAIN (FELIX PT) Encounter Details Date Type Department Care Team (Latest Contact Info) Description 04/05/2020 1:20 PM EST [place] [address] [facility] [place] [address] Acute pain of left knee; Acute pain of right knee; Primary osteoarthritis of both knees Social History Tobacco Use Types Packs/Day Years Used Date Smoking Tobacco: Former Smokeless Tobacco: Never Comments:Only as a teenager Sex and Gender Information Value Date Recorded Sex Assigned at Not on file Gender Identity Not on file Sexual Orientation Not on file documented as of this encounter Last Filed Vital Signs Vital Sign Reading Time Taken Comments Blood Pressure 129/90 04/05/2020 1:28 PM EST Pulse 103 04/05/2020 1:28 PM EST Temperature - - Respiratory Rate - - Oxygen Saturation - - Inhaled Oxygen Concentration - - Weight 70.3 kg (155 lb) 04/05/2020 1:28 PM EST Height 170.2 cm (5' 7) 04/05/2020 1:28 PM EST Body Mass Index 24.28 04/05/2020 1:28 PM EST documented in this encounter Progress Notes * Alberta Nguyen, GERHARD - 04/05/2020 1:20 PM EST Chief complaint: Recurrent both knee right greater than left symptomatic mild OA with patella subluxation Problem List Items Addressed This Visit Recurrent both knee pain Visit Diagnoses Acute pain of left knee Relevant Medications Acute pain of right knee Relevant Medications Primary osteoarthritis of both knees Relevant Medications triamcinolone acetonide (Kenalog-40) (40 mg/mL) injection 40 mg (Completed) lidocaine (XYLOCAINE) 10 mg/mL (1 %) injection 60 mg (Completed) Bupivacaine (PF) (MARCAINE) 0.25 % (2.5 mg/mL) injection 12.5 mg (Completed) Other Relevant Orders XR Knee 1-2 Views Bilat (Generic) Bursa Inject - Major (Shoulder,hip,knee) History of present illness: Radha Bueno is a 54 y.o. 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 She has done relatively well with a left knee cortisoneinjection several months ago. She has had a recurrence of pain right greater than left and is here to talk about treatment options further. No new injuries or falls. She does admit to mild swelling right greater than left knee. No history of inflammatory arthropathy possible remote diagnosis of inflammatory arthropathy that was ultimately diagnosed with osteoarthritis of the knees with patella sub luxation. Pain is primarily patellofemoral and Pes anserine bursa region. She describes a burning sensation of the pes bursa region right greater than left. No current fevers or chills with no systemic or constitutional complaints. Modalities thus far have included a home exercise program as developed by Maninder Jennings PT with quad VMO strengthening and IT band stretching. Other modalities have included hot tub with epson salts with ROM exercises, Aleve, knee braces, and relative rest. No other pertinent medical history to report today she is here for definitive management. Past medical history: Patient Active Problem List Diagnosis Date Noted ??? Bilateral chronic knee pain 04/05/2020 Medications: ??? naproxen sodium (ALEVE) 220 mg Capsule ??? amLODIPine-benazepril (LOTREL) 5-20 mg Capsule ??? VENTOLIN HFA 90 mcg/actuation HFA Aerosol Inhaler ??? ranitidine (ZANTAC) 150 mg Tablet No current facility-administered medications for this visit. Allergies: Allergies Allergen Reactions ??? Unable To Find [Unclassified Drug] Pet Dander Social history: Social History Tobacco Use ??? Smoking status: Former Smoker ??? Smokeless tobacco: Never Used ??? Tobacco comment: Only as a teenager Substance Use Topics ??? Alcohol use: Not on file Review of systems: No chest pain or shortness of breath No fevers, night sweats or chills Questionnaire Responses: myD-H Hip & Knee 04/05/2020 PROMIS-10 General Health Fair PROMIS-10 Quality of Life Good PROMIS-10 Physical Health Good PROMIS-10 Mental Health Very Good PROMIS-10 Social Activity and Relationship Satisfaction Very Good PROMIS-10 Social Roles at Home and Work Fair PROMIS-10 Everyday Physical Activities Completely PROMIS-10 Anxious or Depressed last 7 days Often PROMIS-10 Fatigue last 7 days Moderate PROMIS-10 Pain last 7 days 7 PROMIS PHYSICAL HEALTH SCORE (range 16-68) 42.3 PROMIS MENTAL HEALTH SCORE (range 21-68) 45.8 Vital signs: Temp: -- Vitals: 04/05/20 1328 BP: 129/90 Pulse: (!) 103 Weight: 70.3 kg (155 lb) Height: 170.2 cm (5' 7) Body mass index is 24.28 kg/m??. Physical Exam: 54-year-old female in no acute distress. Non-toxic appearing. Normocephalic Lungs/pulm: non-labored Skin: Dry and intact. No diaphoresis. Both knee exam: Enters exam room unassisted with mild antalgic gait mostly with start up. No assistive devices. Right knee with small effusion. Left knee with trace effusion. Both knee extension full with mild genu recurvatum. Both knee straight leg capability is intact with approximately 140 degrees of flexion right knee with approximately 120 degrees left knee both knees with painful extremes of flexion. Thereis patellofemoral hypermobility noted with pain, apprehension and crepitation noted positive J signand positive tilt. There is pain at bilateral knees right greater than left of the pes anserine bursa region. Both knees are stable to valgus varus stress. Negative Harmeet's and Steinmann's is negative. Skin is warm dry well-perfused. Imaging: No new images. Assessment: 54 y.o. year-old female with recurrent bilateral knee pain with clinical exam is most consistent with patellofemoral pain, PF subluxation with Pes anserine bursal pain with plain radiographs consistent with mild to moderate degenerative changes with patella subluxation. Given recurrent effusion and degree of pain and sensitivity today consider inflammatory arthropathy. Plan: I reviewed my findings in the office today along with previous x-rays. Treatment options reviewed. I think it is reasonable to consider repeat injection to both knees along with a right knee aspiration with small effusion. She would like to proceed and see procedures below. Tolerated well. Keep track of symptoms 2 hours, 2 days and 2 weeks post injection. We offered Tubigrip for support. Consider using cool packs prn. Consider using scheduled oral NSAID's such as Aleve 2 tabs twice a day for a few days post injection. Ok to use acetaminophen no greater than 3 g/day for breakthrough pain. I did encourage her to continue with her home exercise program along with IT band stretching and fo am roller as well. Consider updated PT referral if needed additional support. Finally, given the intensity of pain today, I do recommend a tele health appointment in 6 weeks with no x-rays needed. Ifpain, effusion and sensitivity persists, consider obtaining rheumatology profile to rule out inflammatory arthropathy, and/or cross sectional imaging (MRI scan) to consider intra- articular pathology or insufficiency fracture. Radha is comfortable this approach and she has a good understanding of our recommendations. Pt agrees, questions solicited/answered, will return as scheduled and as needed for concerns or questions. Pt understands they may also call us prn for above. Follow up: 6 weeks tele health. No x-rays. Sooner prn. This plan was discussed with the patient and they are in agreement. All of the patient's questions were answered. Procedure #1: Right knee intra-articular cortisone injection: Prior to beginning conversation was held regarding the risks and benefits of cortisone injection. Atimeout was held confirming the correct side and medication. After which using appropriate sterile technique, approximately 4 mL 1% lidocaine plain were used anesthetize the skin. This was followed by an aspiration of ~ 12 cc's of straw colored synovial fluid with no evidence of infection, Therefore, with strict aseptic technique and one needle technique the right knee was then injected with 4 mlof quarter percent Marcaine plain, and 40 mg of Kenalog. The patient tolerated this procedure well. Procedure #2: LEFT knee intra-articular cortisone injection: Prior to beginning conversation was held regarding the risks and benefits of cortisone injection. Atimeout was held confirming the correct side and medication. After which using appropriate sterile technique, approximately 4 mL 1% lidocaine plain were used anesthetize the skin. This was followed by injection of 4 ml of quarter percent Marcaine plain, and 40 mg of Kenalog. The patient tolerated this procedure well. The above dictation was made with voice recognition software documented in this encounter Plan of Treatment Not on file documented as of this encounter Visit Diagnoses Diagnosis Acute pain of left knee Acute pain of right knee Primary osteoarthritis of both knees Primary localized osteoarthrosis, lower leg documented in this encounter Administered Medications Inactive Administered Medications - up to 3 most recent administrations Medication Order MAR Action Action Date Dose Rate Site BUpivacaine (PF) (MARCAINE) 0.25 % (2.5 mg/mL) injection 12.5 mg 12.5 mg, Intra-articular, ONCE, 1 dose, On Fri04/05/20 at 1415, Routine Given 04/05/2020 2:16 PM EST 12.5 mg lidocaine (XYLOCAINE) 10 mg/mL (1 %) injection 60 mg 60 mg, Intra-articular, ONCE, 1 dose, On Fri04/05/20 at 1415, Routine Given 04/05/2020 2:16 PM EST 60 mg triamcinolone acetonide (Kenalog-40) (40 mg/mL) injection 40 mg 40 mg, Intra-articular, ONCE, 1 dose, On Fri04/05/20 at 1415, Routine Given 04/05/2020 2:16 PM EST 40 mg documented in this encounter Care Teams Pillow Agent Relationship Specialty Start Date End Date Rodrick-Marbella Leung PA [address] [place] [id number] PCP - General Family Medicine 07/23/18 08/04/23 documented as of this encounter
--- OUTSIDE RECORDS SUMMARY | 2024-03-11 16:25 | XMS_ITS | Encounter Summary ---
[place] [address] Care Team Providers Care Gift Manager Name Role Phone Marbella Francisco Primary Care [...] wo Contrast Right (Generic) Alberta Nguyen APRN [facility] [place] [address] [place] [address] Referral ID Status Reason Start Date Expiration Date V isits Requested Visits Authorized [id number] Closed Specialty Service Requested 05/17/2020 11/15/2021 1 1 Reason for Visit * Diagnostic Test (Routine) - Closed Specialty Diagnoses / Procedures Referred By Contac t Referred To Contact Radiology Diagnoses Knee effusion, right Tear of medial meniscus of right knee, unspecified tear type, unspecified whether old or current tear, subsequent encounter Pes anserine bursitis Procedures MRI Knee wo Contrast Right (Generic) Alberta Nguyen APRN [facility] [place] [address] [place] [address] Referral ID Status Reason Start Date Expiration Date V isits Requested Visits Authorized [id number] Closed Specialty Service Requested 05/17/2020 11/15/2021 1 1 Encounter Details Date Type Department Care Team (Latest Contact Info) Description 06/08/2020 12:32 PM EST - 06/08/2020 12:33 PM EST Hospital [place] [address] Alberta Nguyen, [employer] [facility] [place] [address] Knee effusion, right; Tear of medial meniscus of right knee, unspecified tear type, unspecified whether old or current tear, subsequent encounter; Pes anserine bursitis Discharge Disposition: Home Social History Tobacco Use [...] 3 07/23/2018 documented as of this encounter Progress Notes * Melania Osorio, RN - 06/08/2020 12:50 PM EST MRI PRE-SEDATION ASSESSMENT NOTE NAME: Radha Bueno AGE: 54 y.o. : 1965 [address] [facility] [address] Female [phone] (home) Telephone Information: NINA Freitas No primary care provider on file. Allergies Allergen Reactions ??? Unable To Find [Unclassified Drug] Pet Dander Date/Time of call: June 05, 2020/12:12 PM/ PREVIOUS MRI SCAN? None noted SCHEDULED SCAN: MRI KNEE RIGHT WO CONTRAST [[id number]] SUBJECTIVE: Claustrophobia CAN YOU LAY FLAT? Yes AIRWAY/BREATHING ISSUES? Asthma, pt bringing inhaler DO YOU HAVE ANY INVOLUNTARY MOVEMENTS? No DO YOU HAVE ANY PAIN? No DO YOU TAKE PAIN MED ON A DAILY BASIS? No ASSESSMENT: Ok for PO medication PLAN: Valium 5-10 mg PO (JJ) You must have a snaker tractor driver present when you check in. This patient has been informed that they require a snaker tractor driver to drive them home after this procedure. In the absence of a snaker tractor driver, IR will not be able to sedate for your scan. Pt verbalized understanding of these instructions duringthe pre-procedure education via phone. Yes [place] of snaker tractor driver: Lupe Mathews Phone number: [phone] PRIOR SCAN DATE/S SEDATION TYPE SUCCESSFUL 06/08/20 MRI R Knee Valium 5 mg po X2 Did great Revised 10/21/17 documented in this encounter Plan of Treatment [...] please contact the number below. ? Narrative 06/09/2020 8:23 AM EST EXAMINATION: MRI [...] this report, please contact the number below. Alberta Nguyen APRN [facility] MRI ORDERABLES documented in this encounter Visit Diagnoses Diagnosis Knee effusion, right Effusion of lower leg joint Tear of medial meniscus of right knee, unspecified tear type, unspecified whether old or current tear, subsequent encounter Pes anserine bursitis Pes anserinus tendinitis or bursitis documented in this encounter Administered Medications Inactive Administered Medications - up to 3 most recent administrations Medication Order MAR Action Action Date Dose Rate Site diazePAM (Valium) tablet 5 mg 5 mg, Oral, EVERY 30 MIN PRN, 2 doses, Starting on Miriam 06/08/20 at 0810, Until Miriam 06/08/20 at 1326, Anxiety, MRI, Angio/IR (Day of Procedure), Routine Given 06/08/2020 1:26 PM EST 5 mg Given 06/08/2020 12:43 PM EST 5 mg documented in this encounter Care Teams Gift Manager Relationship Specialty Start Date End Date Marbella Francisco PA [address] [place] [id number] PCP - General Family Medicine 07/23/18 08/04/23 documented as of this encounter
--- OUTSIDE RECORDS SUMMARY | 2024-03-11 16:25 | XMS_ITS | Encounter Summary ---
[place] [address] Care Team Providers Care Cord Splicer Name Role Phone Marbella Francisco Primary Care Provider Encounter Details Date Type Department Care Team (Latest Contact Info) Description 12/02/2019 10:20 AM EDT - 12/02/2019 11:59 PM EDT Hospital Encounter Mammography/[place] [address] Marbella Francisco PA [address] [place] [id number] Visit for screening mammogram Discharge Disposition: Home Social History Tobacco Use [...] MAMMO SCREENING CAD AND YOGI BILATERAL Routine 12/02/2019 10:53 AM EDT Visit for screening mammogram documented in this encounter Results * Mammo Screening Cad and Yogi Bilateral (12/02/2019 10:53 AM EDT) Anatomical Region [...] documented in this encounter Visit Diagnoses Diagnosis Visit for screening mammogram Other screening mammogram documented in this encounter Care Teams Cord Splicer Relationship Specialty Start Date End Date Marbella Francisco PA [address] [place] [address] PCP - General Family Medicine 07/23/18 08/04/23 documented as of this encounter
--- OUTSIDE RECORDS SUMMARY | 2024-03-11 16:25 | XMS_ITS | Encounter Summary ---
Author Organization [place] [id number] Care Team Providers Care Leaf Conditioner Name Role Phone Yudy Hernandez MD Primary Care Provider [phone] Reason for Referral * High Dollar Medication (Routine) - Authorized Specialty Diagnoses / Procedures Referred By Contac t Referred To Contact Orthopaedics Diagnoses Osteoarthritis of both knees, unspecified osteoarthritis type Procedures Monovisc Authorization Request (IN CLINIC) TC MONOVISC INJECTION, PER DOSE [place], NINA Perdomo [facility] [place] [address] [facility] [address] [place] [phone] Referral ID Status Reason Start Date Expiration Date Visits Requested Visits Authorized [id number] Authorized Consult, Test & Treat 12/16/2023 12/15/2024 1 2 Encounter Details Date Type Department Care Team (Late st Contact Info) Description 12/16/2023 Telephone [place] [address] EnidMyriam PA [facility] [place] [address] Social History Tobacco Use Types Packs/Day Years [...] encounter Miscellaneous Notes * Telephone Encounter - Leobardo Silva - 12/16/2023 3:09 PM EDT This was to be for bilateral knee injections, appointment scheduled and message to Molly. * Telephone Encounter - Gisell Conklin - 12/16/2023 3:07 PM EDT LM #1 TO help schedule for injections with Myriam Rossi. NXR BILAT KNEE MONOVISC INJ * Telephone Encounter - Molly Perkins - 12/16/2023 2:49 PM EDT Okay to schedule bilat knee inj with Myriam Rossi PA-C next available. Patient's request for injection appointment of the Bilateral Knee has been reviewed by Clinical Support. Is it too soon for patient to have this injection? No Date of last injection? 07/16/21 Is this a high dollar injection? Monovisc Enter High Dollar Prior Auth if Synvisc or Orthovisc injection. Does this injection need to be scheduled in radiology under fluoro? no Have orders been placed? yes Injection within 3 months prior to joint arthroplasty or arthroscopy is associated with increased rates of postoperative infection: this includes, hip, knee, and shoulder. * Telephone Encounter - Leobardo Silva - 12/16/2023 2:42 PM EDT Caller: Radha Bueno Best Return Contact: or cell [phone] Procedure: Last injection was Provider: Myriam [place] Questions: Having increased pain and swelling in both knees and has hand no new injury but this hasbecome progressively worse over the past eight months and she has been working hard and has not hadthe time to get seen. She had to cancel a vacation to [place] because she could not walk around. Best days/times to schedule the appointment: Any day or time except for 12/24, 12/25 and 01/01. She is going to be starting a new job in January. Is it acceptable to leave a voicemail message with your appointment if we are unable to reach you directly? yes Patient requests appointment for injection of the Bilateral knee. What type of injection? Monovisc (cortisone only worked for two weeks last time she had it.) NOTE: If this is a request for a fluoro guided injection, please ask the safety questions (use .fluoroschedquestion dot phrase) I will send this request to the Clinical Support team for review. Some injections require prior authorization, special orders, or an appointment somewhere other thanour clinic, so knowing this in advance will help us to better meet your needs. If the injection requires prior authorization, it may take 14 or more business days before we can schedule your appointment. As soon as this service approved by the clinical support team, we will call you to schedule the appointment. Please send to the appropriate team pool to schedule documented in this encounter Plan of Treatment Not on file documented as of this encounter Visit Diagnoses Diagnosis Osteoarthritis of both knees, unspecified osteoarthritis type documented in this encounter Care Teams Leaf Conditioner Relationship Specialty Start Date End Date Yudy Hernandez MD [address] [place] [address] PCP - General Family Medicine 08/05/23 documented as of this encounter
--- OUTSIDE RECORDS SUMMARY | 2024-03-11 16:25 | XMS_ITS | Encounter Summary ---
[place] [address] Care Team Providers Care Artist'S Model Name Role Phone Yudy Hernandez MD Primary Care Provider [phone] Reason for Referral * Surgical (Routine) - Duplicate Referral Specialty Diagnoses / Procedures Referred By Contac t Referred To Contact Gastroenterology Diagnoses Hiatal hernia Procedures TEST ONLY Yudy Hernandez MD [address] [place] [address] [facility] [address] [place] [phone] Referral ID Status Reason Start Date Expiration Date Visits Requested Visits Authorized [id number] Duplicate Referral Test Only PCP Updated and/or Approved 08/05/2023 08/04/2024 1 1 * Surgical (Routine) - Authorized Specialty Diagnoses / Procedures Referred By Contac t Referred To Contact Gastroenterology Diagnoses Hiatal hernia Procedures TEST ONLY Yudy Hernandez MD [address] [place] [id number] [facility] [address] [place] [phone] Referral ID Status Reason Start Date Expiration Date Visits Requested Visits Authorized [id number] Authorized Test Only PCP Updated and/or Approved 08/05/2023 08/04/2024 1 1 Encounter Details Date Type Department Care Team (Late st Contact Info) Description 08/05/2023 Transcribe Orders eDH Incoming Referrals [phone] Yudy Hernandez MD [address] [place] [address] Hiatal hernia Social History Tobacco Use Types [...] Scheduled Referrals Name Type Priority Associated Diagnoses Order Schedule REFERRAL TO COLONOSCOPY PROCEDURE Outpatient Referral Routine Hiatal hernia Ordered: 08/05/2023 REFERRAL TO ENDOSCOPY PROCEDURE Outpatient Referral Routine Hiatal hernia Ordered: 08/05/2023 documented as of this encounter Visit Diagnoses Diagnosis Hiatal hernia Diaphragmatic hernia without mention of obstruction or gangrene documented in this encounter Care Teams Artist'S Model Relationship Specialty Start Date End Date Yudy Hernandez MD [address] [place] [id number] PCP - General Family Medicine 08/05/23 documented as of this encounter
--- OUTSIDE RECORDS SUMMARY | 2024-03-11 16:25 | XMS_ITS | Encounter Summary ---
[place] [address] Care Team Providers Care Pickle Maker Name Role Phone Yudy Hernandez MD Primary Care Provider [phone] Encounter Details Date Type Department Care Team (Latest Contact Info) Description 01/21/2024 Travel Social History Tobacco Use Types Packs/Day Years [...] on filedocumented in this encounter Care Teams Pickle Maker Relationship Specialty Start Date End Date Yudy Hernandez MD [address] [place] [address] PCP - General Family Medicine 08/05/23 documented as of this encounter
--- OUTSIDE RECORDS SUMMARY | 2024-03-11 16:25 | XMS_ITS | Encounter Summary ---
Author Organization [facility] [address] Care Team Providers Care Foreign Diplomat Name Role Phone Marbella Francisco Primary Care Provider Reason for Visit * Reason Onset Date Comments Bumped Appointment 05/14/2021 Encounter Details Date Type Department Care Team (Late st Contact Info) Description 05/14/2021 Telephone [place] [phone] Clinic, Dr Payne Team None Bumped Appointment Social History Tobacco Use Types Packs/Day Years Used Date Smoking Tobacco: Former Smokeless Tobacco: Never Comments:Only as a teenager Sex and Gender Information Value Date Recorded Sex Assigned at Not on file Gender Identity Not on file Sexual Orientation Not on file documented as of this encounter Miscellaneous Notes * Telephone Encounter - Bubba Urrutia - 05/16/2021 1:40 PM EST Patient rescheduled for 06/27/[address] Payne Team at 10:50 with XR prior. Patient added to waitlist after expressing wishing she could be seen sooner but the was no late morning appts available. * Telephone Encounter - Morena Nguyen - 05/16/2021 1:28 PM EST LM# 2for Patient to re-schedule Bumped appointment with Dr. Payne Team on 06/06/21 to a different day * Telephone Encounter - Morena Nguyen - 05/14/2021 8:30 AM EST LM# 1 for Patient to re-schedule Bumped appointment with Dr. Payne Team on 06/06/21 to early afternoon same day or a different day documented in this encounter Plan of Treatment Not on file documented as of this encounter Visit Diagnoses Not on filedocumented in this encounter Care Teams Foreign Diplomat Relationship Specialty Start Date End Date Marbella Francisco PA [address] [place] [id number] PCP - General Family Medicine 07/23/18 08/04/23 documented as of this encounter
--- OUTSIDE RECORDS SUMMARY | 2024-03-11 16:25 | XMS_ITS | Encounter Summary ---
[place] [address] Care Team Providers Care Aerial Gunner Superintendent Name Role Phone Marbella Francisco Primary Care Provider Reason for Referral * Diagnostic Test (Routine) - Closed Specialty Diagnoses / Procedures Referred By Contac t Referred To Contact Diagnoses Chest pain, unspecified type Procedures Echocardiogram Stress (Treadmill) Marbella Francisco PA [address] [place] [phone] [facility] [place] [address] Referral ID Status Reason Start Date Expiration Date V isits Requested Visits Authorized [id number] Closed Specialty Service Requested 08/13/2019 08/12/2020 1 1 Reason for Visit * Diagnostic Test (Routine) - Closed Specialty Diagnoses / Procedures Referred By Contac t Referred To Contact Diagnoses Chest pain, unspecified type Procedures Echocardiogram Stress (Treadmill) Marbella Francisco PA [address] [place] [address] [facility] [place] [address] Referral ID Status Reason Start Date Expiration Date V isits Requested Visits Authorized [id number] Closed Specialty Service Requested 08/13/2019 08/12/2020 1 1 Encounter Details Date Type Department Care Team (Latest Contact Info) Description 10/29/2019 8:00 AM EDT - 10/29/2019 11:59 PM EDT Hospital Encounter Non-[place] [address] Marbella Francisco PA [address] [place] [address] Chest pain, unspecified type Discharge Disposition: Home Social History Tobacco Use [...] Procedure Name Priority Date/Time Associated Diagnosis Comments STRESS ECHO W CONTRAST W LMTD SPEC DOPP COLOR DOPP Routine 10/29/2019 9:12 AM EDT Chest pain, unspecified type documented in this encounter Results * STRESS ECHO W CONTRAST W LMTD SPEC DOPP COLOR DOPP (10/29/2019 9:12 AM EDT) EF 60 [employer] Anatomical Region Laterality Modality Other 10/29/2019 Narrative 10/29/2019 9:41 AM EDT Procedure: ?Stress Echocardiogram Patient: ?SHAUN DUNHAM ?(Age): 1965(54y) Med Rec#: ? [id number] ?Sex: ?F ? [place] [facility] [place]Ht / Wt: ??168(cm)/72(kg) Pt. Loc: ?Echo Lab ?BSA: ? Study Date: ?? 10/29/2019 ?Pt. Type: Tape: ? Referring: PRISCILA Referring: Marbella Francisco Reading: Primo Renteria ??([id number]) Production Intern: Krystyna Sánchez [employer] Valuer: Rich Rivera RDCS Diagnosis: *Chest pain, unspecified (R07.9) Stage ? BP ?HR ? Rest ?140/110 ? 85 ? Peak ?160/102 ? 157 ? Recovery ?140/100 ? 83 ? SUMMARY: 1. IMPRESSION: Normal stress echo, without evidence [...] and all LV segments became appropriately hyperdynamic. Findings Rest: Study Quality: ? Adequate Left Ventricle: ? The left ventricular chamber size is normal. ?There is normal global left ventricular systolic function. ??Ejection fraction is estimated to be 60%. ?There are no left ventricular segmental wall motion abnormalities. ?Left ventricular diastolic function is abnormal. ?The left ventricular diastolic filling pattern is consistent with impaired LV relaxation. ?Doppler assessment is consistent with normal left sided filling pressure. Right Ventricle: ? The right ventricle is normal in size. ?Right ventricular global systolic function is normal. ?The estimated pulmonary artery systolic pressure is 18 mmHg. Plus RAP. Aortic Valve: ? The aortic valve is tricuspid. ?There is no evidence of aortic valve thickening. ?Systolic excursion of the aortic valve is normal. ?There is no evidence of aortic valve stenosis. ?There is no evidence of aortic regurgitation. Mitral Valve: ? The mitral valve leaflets appear normal. ?There is trace mitral regurgitation present. Tricuspid Valve: ? The tricuspid valve leaflets are morphologically normal. ?There is trace tricuspid regurgitation present. Pericardium: ? There is no pericardial effusion. Aorta: ? The aortic root is normal in size. ?There is mild dilatation of the ascending aorta. 3.9cm Stress: ? EKG: normal sinus rhythm. ?The patient's oxygen saturation was 100%. ?The patient is on an EDWIN inhibitor. Misc: ? Definity contrast (one 1.5 ml vial)was used to enhance endocardial definition. Excess contrast was discarded. ?Stress echo, limited spectral Doppler, color Doppler and ECG interpretation performed. Findings Peak: Predicted Values:The patient achieved a maximum heart rate of 157 which is 95% of the maximum predicted heart rate (166 beats/min). ??The target heart rate was achieved. Left Ventricle: ? Global left ventricular systolic function appears hyperdynamic. ?There are no left ventricular segmental wall motion abnormalities. Stress: ? Patient followed a Ghassan protocol. ?The patient exercised into stage 3. ?The total exercise duration was:8:57 mins. ?The study was terminated because of dyspnea.6/10 shortness of breath at peak exercise. ?The patient did not express feelings of chest discomfort. ?The patient experienced shortness of breath. ?The blood pressure response was normal. ?Exercise capacity was good. ?The patient achieved a level of 10 METS. ?There were occasional ventricular premature contractions. ?There is 0.5 mm of up-sloping ST segment depression in the leads. ?There was ST segment depression in the inferior leads. ?This was a negative electrocardiographic stress test for ischemia. ?EKG: sinus tachycardia. ?The patient's oxygen saturation was 96%. Chambers 2D ?Value ?Units (Range) ? Ao root diameter (2D3.35 ? cm (2.1 - 3.6) ? Ascending Ao ?3.92 ? cm (2 - 3.5) ? Diastolic/Systolic Function ?Value ?Units (Range) ? MV E-wave Vmax ?0.72 ? m/sec ? MV deceleration farn775.83 ? msec ? MV A-wave Vmax ?0.85 ? m/sec ? MV E:A ratio ?0.85 ? ratio ? LV septal e' Vmax ?? 0.08 ? m/sec ? LV lateral e' Vmax ??0.12 ? m/sec ? LV E:e' septal ratio9.03 ? ratio ? LV E:e' lateral rati6.02 ? ratio ? Tricuspid Valve ?Value ?Units (Range) ? TR Vmax ? 2.15 ? m/sec ? TR peak gradient ?18.49 ?mmHg ? RVSP ?18 ? mmHg ? Wall Motion: Segment Name ?Rest ? Peak ? Base-Anteroseptal ?? Normal ? Normal ? Base-Anterior ? Normal ? Normal ? Base-Anterolateral ??Normal ? Normal ? Base-Posterolateral Normal ? Normal ? Base-Inferior ? Normal ? Normal ? Base-Inferoseptal ?? Normal ? Normal ? Mid-Anteroseptal ?Normal ? Normal ? Mid-Anterior ?Normal ? Normal ? Mid-Anterolateral ?? Normal ? Normal ? Mid-Posterolateral ??Normal ? Normal ? Mid-Inferior ?Normal ? Normal ? Mid-Inferoseptal ?Normal ? Normal ? Felt-Septal ? Normal ? Normal ? Felt-Anterior ? Normal ? Normal ? Felt-Lateral ?Normal ? Normal ? Felt-Inferior ? Normal ? Normal ? Felt-Tip ?Normal ? Normal ? This report has been electronically signed by: Primo Renteria MD ? 10/29/2019 09:39:07 Images reviewed and interpretation verified [facility] Cardiac Ultrasound Laboratory Procedure Note Primo Renteria MD - 10/29/2019 Procedure: Stress Echocardiogram Patient: SHAUN MARINO(Age): 1965(54y) Med Rec#: [id number] Sex: F [place] [facility] [place]t / Wt: 168(cm)/72(kg) Pt. Loc: Echo Lab BSA: 1.82 Study Date: 10/29/2019 Pt. Type: Tape: Referring: PRISCILA Referring: Marbella Francisco Reading: Primo Renteria ([id number]) Production Intern: Krystyna Sánchez [employer] Valuer: Rich Rivera RDCS Diagnosis: *Chest pain, unspecified (R07.9) Stage BP HR Rest 140/110 85 Peak 160/102 157 Recovery 140/100 83 SUMMARY: 1. IMPRESSION: Normal stress echo, without evidence [...] and all LV segments became appropriately hyperdynamic. Findings Rest: Study Quality: Adequate Left Ventricle: The left [...] consistent with normal left sided filling pressure. Right Ventricle: The right ventricle is normal in size. Right ventricular global systolic function is normal. The estimated pulmonary artery systolic pressure is 18 mmHg. Plus RAP. Aortic Valve: The aortic valve is tricuspid. There is no evidence of aortic valve thickening. Systolic excursion of the aortic valve is normal. There is no evidence of aortic valve stenosis. There is no evidence of aortic regurgitation. Mitral Valve: The mitral valve leaflets appear normal. There is trace mitral regurgitation present. Tricuspid Valve: The tricuspid valve leaflets are morphologically normal. There is trace tricuspid regurgitation present. Pericardium: There is no pericardial effusion. Aorta: The aortic root is normal in size. There is mild dilatation of the ascending aorta. 3.9cm Stress: EKG: normal sinus rhythm. The patient's oxygen saturation was 100%. The patient is on an EDWIN inhibitor. Misc: Definity contrast (one 1.5 ml vial)was used to enhance endocardial definition. Excess contrast was discarded. Stress echo, limited spectral Doppler, color Doppler and ECG interpretation performed. Findings Peak: Predicted Values:The patient achieved a maximum heart rate of 157 which is 95% of the maximum predicted heart rate (166 beats/min). The target heart rate was achieved. Left Ventricle: Global left ventricular systolic function appears hyperdynamic. There are no left ventricular segmental wall motion abnormalities. Stress: Patient followed a Ghassan protocol. The patient exercised into stage 3. The total exercise duration was:8:57 mins. The study was terminated because of dyspnea.6/10 shortness of breath at peak exercise. The patient did not express feelings of chest discomfort. The patient experienced shortness of breath. The blood pressure response was normal. Exercise capacity was good. The patient achieved a level of 10 METS. There were occasional ventricular premature contractions. There is 0.5 mm of up-sloping ST segment depression in the leads. There was ST segment depression in the inferior leads. This was a negative electrocardiographic stress test for ischemia. EKG: sinus tachycardia. The patient's oxygen saturation was 96%. Chambers 2D Value Units (Range) Ao root diameter (2D3.35 cm (2.1 - 3.6) Ascending Ao 3.92 cm (2 - 3.5) Diastolic/Systolic Function Value Units (Range) MV E-wave Vmax 0.72 m/sec MV deceleration evlu266.83 msec MV A-wave Vmax 0.85 m/sec MV E:A ratio 0.85 ratio LV septal e' Vmax 0.08 m/sec LV lateral e' Vmax 0.12 m/sec LV E:e' septal ratio9.03 ratio LV E:e' lateral rati6.02 ratio Tricuspid Valve Value Units (Range) TR Vmax 2.15 m/sec TR peak gradient 18.49 mmHg RVSP 18 mmHg Wall Motion: Segment Name Rest Peak Base-Anteroseptal Normal Normal Base-Anterior Normal Normal Base-Anterolateral Normal Normal Base-Posterolateral Normal Normal Base-Inferior Normal Normal Base-Inferoseptal Normal Normal Mid-Anteroseptal Normal Normal Mid-Anterior Normal Normal Mid-Anterolateral Normal Normal Mid-Posterolateral Normal Normal Mid-Inferior Normal Normal Mid-Inferoseptal Normal Normal Felt-Septal Normal Normal Felt-Anterior Normal Normal Felt-Lateral Normal Normal Felt-Inferior Normal Normal Felt-Tip Normal Normal This report has been electronically signed by: Primo Renteria MD 10/29/2019 09:39:07 Images reviewed and interpretation verified [facility] Cardiac Ultrasound Laboratory Marbella WOOD ECHO ORDERABLES documented in this encounter Visit Diagnoses Diagnosis Chest pain, unspecified type documented in this encounter Administered Medications Inactive Administered Medications - up to 3 most recent administrations Medication Order MAR Action Action Date Dose Rate Site perflutren lipid microspheres (DEFINITY) injection 0.5 mL 0.5 mL, Intravenous, ONCE PRN, 1 dose, Starting on Fri10/29/19 at 0913, Until Fri10/29/19 at 0830, Other, for enhancement of sub-optimal echo images, Echo Lab (Intra-Procedure), Routine Given 10/29/2019 8:30 AM EDT 0.5 mLs documented in this encounter Care Teams Aerial Gunner Superintendent Relationship Specialty Start Date End Date Marbella Francisco PA [address] [place] [id number] PCP - General Family Medicine 07/23/18 08/04/23 documented as of this encounter
--- OUTSIDE RECORDS SUMMARY | 2024-03-11 16:25 | XMS_ITS | Encounter Summary ---
Author Organization [facility] [place] [address] Care Team Providers Care Nutter Up Name Role Phone Marbella Francisco Primary Care Provider Reason for Visit * Reason Comments Establish Care bilat knee pain * Consultation (Routine) - Closed Specialty Diagnoses / Procedures Referred By Hayley t Referred To Contact Orthopaedics Diagnoses bilat knee pain None None [facility] [address] [place] [phone] Referral ID Status Reason Start Date Expiration Date Visits Re quested Visits Authorized [id number] Closed 11/12/2019 11/11/2020 1 1 Encounter Details Date Type Department Care Team (Late st Contact Info) Description 11/23/2019 1:00 PM EDT Office [place] [phone] Jackelin Jorge APRN [facility] DR ORTHOPAEDIC [place] [address] Acute pain of left knee; Primary osteoarthritis of both knees Social [...] Sign Reading Time Taken Comments Blood Pressure 126/87 11/23/2019 1:10 PM EDT Pulse 88 11/23/2019 1:10 PM EDT Temperature - - Respiratory Rate - - Oxygen Saturation - - Inhaled Oxygen Concentration - - Weight 72.6 kg (160 lb 1.6 oz) 11/23/2019 1:10 P M EDT Height 170.2 cm (5' 7) 11/23/2019 1:10 PM EDT Body Mass Index 25.08 11/23/2019 1:10 PM EDT documented in this encounter Progress Notes * Jackelin Jorge APRN - 11/23/2019 1:00 PM EDT Visit Date: 11/23/19 CC: Left > Right Knee Pain Onset: Acute on chronic left, 3-4 weeks right HPI: Radha Bueno is a 54 y.o. female who presents to clinic with left greater than right knee pain. Briefly, patient recalls falling on stairs several years ago and twisting the left knee. She treated this conservatively with acupuncture and had no major issues or discomfort. However, she began working out with a sports trainer over the past few months. She has been doing longer walks and hikes with incline when she noted after 1 particular hike where she did not stretch that she had moderate to severe pain about the medial aspect of the left knee and more mild pain about the medial aspect of theright knee. She has noted left knee swelling and sense of weakness. She denies any instability or mechanical symptoms. Symptoms are exacerbated with walking, transitioning from a seated to standing position, twisting and squatting. Treatment has included acupuncture, CBD salve, icing and Aleve. These things do provide some minor relief but she is still left with a significant amount of pain, in particular in the left side. ROS: Negative for fever, chills, SOB, chest pain, nausea, vomiting, and diarrhea. Current Outpatient Medications: ??? naproxen sodium (ALEVE) 220 mg Capsule, Take by mouth., Disp: , Rfl: ??? amLODIPine-benazepril (LOTREL) 5-20 mg Capsule, Take 1 capsule by mouth daily., Disp: , Rfl: ??? VENTOLIN HFA 90 mcg/actuation HFA Aerosol Inhaler, , Disp: , Rfl: ??? ranitidine (ZANTAC) 150 mg Tablet, Take 1 tablet by mouth 2 times daily., Disp: 180 tablet, Rfl: 3 No current facility-administered medications for this visit. Allergies Allergen Reactions ??? Unable To Find [Unclassified Drug] Pet Dander PMH: HTN, Asthma, Cardiac Arrhythmia Past Surgical History: Procedure Laterality Date ??? XR FLUORO INJECTION DRAINAGE JOINT SM LEFT Left 10/30/2018 XR Fluoro Guided Joint Injection Small Left 10/30/2018 [facility] RAD XRAY ??? 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 Smoking status: Former Smoker ??? Smokeless tobacco: Never Used ??? Tobacco comment: Only as a teenager Substance and Sexual Activity ??? Alcohol use: Not on file Blood pressure 126/87, pulse 88, height 170.2 cm (5' 7), weight 72.6 kg (160 lb 1.6 oz). Exam: Alert and oriented x4. No apparent distress. Gait nonantalgic statuses. Examination of bilateral knees reveals intact skin without erythema or ecchymosis. No effusions. Range of motion includes5 degrees of hyperextension and 130 degrees of flexion, bilaterally. She has medial sided pain withleft knee terminal flexion. She is exquisitely tender to palpation along left medial joint line. Nolateral joint line tenderness of her left knee. Mild medial joint line tenderness with palpation ofthe right knee. No lateral joint line tenderness, right knee. Bilateral knees are stable to varus and valgus stress. Bilateral knees negative for anterior and posterior drawer test. Negative Lockman's, bilaterally. She has medial sided pain with Steinmann's and Harmeet's testing of the left knee. Negative Steinmann and Harmeet of the right knee. Negative patellar grind, bilaterally. Straight leg raise with out lag, bilaterally. Calf soft supple nontender, bilaterally. DP and PT pulses 2+ palpation, bilaterally. Distal sensation is intact light touch in all nerve distributions, bilaterally. Imaging: I reviewed multiple XR revealing mild lateral and PF compartment narrowing as well as mildvarus alignment. Assessment/Plan: 54 yo female with acute on chronic left and new onset right knee pain. Reviewed imaging and exam findings consistent with mild DJD bilaterally and probable medial meniscal tear of the left knee. Discussed natural history. Discussed options including pursuing MRI of the left knee to assess for surgical meniscal lesion vs conservative mgmt with cortisone injection of the left knee,PT, NSAIDS and watchful waiting followed by left knee MRI for persistent symptoms if no better in 6weeks. Patient elected conservative option. She met with PT today. See note below. F/U prn. Procedure I discussed the risks and benefits of injecting the joint with Cortisone such as, transient elevation in blood glucose levels, bleeding, infection, and failure to alleviate symptoms. The patient verbalized understanding and chose to proceed with the procedure. The skin was prepped with DuraPrep, numbed with Ethyl Chloride, and a the left knee was sterilely injected with 40mg/4mL 1% Lidocaine without epinephrine and 40mg/1mL Kenalog from a superolateral approach with a #22 gauge needle. A bandaid and DSG was then applied to the injection site. The patient tolerated the procedure well and is without complication. She was advised to keep the sterile dressing on for 24 hours and refrain from any vigorous activities today. She was also advised to report and signs or symptoms of infection in the joint such as redness, swelling, drainage, or fever immediately. documented in this encounter Plan of Treatment Not on file documented as of this encounter Visit Diagnoses Diagnosis Acute pain of left knee Primary osteoarthritis of both knees Primary localized osteoarthrosis, lower leg documented in this encounter Administered Medications Inactive Administered Medications - up to 3 most recent administrations Medication Order MAR Action Action Date Dose Rate Site triamcinolone acetonide (KENALOG-40) injection 40 mg 40 mg, Intra-articular, ONCE, 1 dose, On Fri11/23/19 at 1415, Routine Given 11/23/2019 1:47 PM EDT 40 mg documented in this encounter Care Teams Nutter Up Relationship Specialty Start Date End Date Marbella Francisco PA [address] [place] [id number] PCP - General Family Medicine 07/23/18 08/04/23 documented as of this encounter
--- OUTSIDE RECORDS SUMMARY | 2024-03-11 16:25 | XMS_ITS | Encounter Summary ---
Author Organization [facility] Address [facility] [place] [address] Care Team Providers Care Food And Beverage Coordinator Name Role Phone Marbella Francisco Primary Care Provider [phone] Encounter Details Date Type Department Care Team (Latest Contact Info) Description 06/27/2021 10:00 AM EST - 06/27/2021 11:59 PM [facility] Hospital Encounter XRay at [address] [place] [address] Saulo Godinez MD [facility] [place] [address] Tear of medial meniscus of right knee, unspecified tear type, unspecified whether old or current tear, subsequent encounter; Knee effusion, right; Acute pain of right knee; Pes anserine bursitis Discharge Disposition: Home Social [...] Priority Date/Time Associated Diagnosis Comments XR KNEE AP & LAT RIGHT Routine 06/27/2021 10:16 AM EST Tear of medial meniscus of right knee, unspecified tear type, unspecified whether old or current tear, subsequent encounter Knee effusion, right Acute pain of right knee Pes anserine bursitis documented in this encounter Results * XR Knee 1-2 [...] who have questions please contact the health career services assistant that requested your imaging first. ? Electronically signed by: Sherin Candelario MD, [facility] ([phone]), at 06/27/2021 2:13 PM Narrative 06/27/2021 2:13 [...] patients who have questions please contactthe health career services assistant that requested your imaging first. Electronically signed by: Sherin Candelario MD, [facility]([phone]), at 06/27/2021 2:13 PM Saulo Godinez MD IMG DX ORDERABLES documented in this encounter Visit Diagnoses Diagnosis Tear of medial meniscus of right knee, unspecified tear type, unspecified whether old or current tear, subsequent encounter Knee effusion, right Effusion of lower leg joint Acute pain of right knee Pes anserine bursitis Pes anserinus tendinitis or bursitis documented in this encounter Care Teams Food And Beverage Coordinator Relationship Specialty Start Date End Date Marbella Francisco PA [address] [place] [id number] PCP - General Family Medicine 07/23/18 08/04/23 documented as of this encounter
--- OUTSIDE RECORDS SUMMARY | 2024-03-11 16:25 | XMS_ITS | Encounter Summary ---
[place] [address] Care Team Providers Care Supervisor Mold Yard Name Role Phone Marbella Francisco Primary Care Provider Reason for Referral * Diagnostic Test (Routine) - Closed Specialty Diagnoses / Procedures Referred By Contac t Referred To Contact Cardiology Diagnoses Dilated congestive cardiomyopathy Procedures Echocardiogram Transthoracic([facility]) Jose Luis Smith MD [facility] [place] [address] [facility] [place] [address] Referral ID Status Reason Start Date Expiration Date V isits Requested Visits Authorized [id number] Closed Specialty Service Requested 01/25/2021 01/25/2022 1 1 Reason for Visit * Diagnostic Test (Routine) - Closed Specialty Diagnoses / Procedures Referred By Contac t Referred To Contact Cardiology Diagnoses Dilated congestive cardiomyopathy Procedures Echocardiogram Transthoracic([facility] or [facility]) Jose Luis Smith MD [facility] [place] [address] [facility] [place] [address] Referral ID Status Reason Start Date Expiration Date V isits Requested Visits Authorized [id number] Closed Specialty Service Requested 01/25/2021 01/25/2022 1 1 Encounter Details Date Type Department Care Team (Late st Contact Info) Description 04/09/2021 1:25 PM EST - 04/09/2021 11:59 PM EST Hospital Encounter Non-Invasive Cardiology [place] [address] Brayden Hodges MD [facility] [place] [address] Dilated congestive cardiomyopathy Discharge Disposition: Home Social History Tobacco Use [...] as of this encounter Progress Notes * Jose Luis Smith MD - 04/09/2021 11:59 PM EST Tried to call patient but no answer. Will route to [facility] documented in this encounter Plan of Treatment Not on file documented as of this encounter Procedures Procedure Name Priority Date/Time Associated Diagnosis Comments ECHO COMPLETE Routine 04/09/2021 2:38 PM EST Dilated congestive cardiomyopathy documented in this encounter Results * ECHO COMPLETE (04/09/2021 2:38 PM EST) EF 56 [facility] Anatomical Region Laterality Modality Other 04/09/2021 Narrative 04/09/2021 3:39 PM EST Procedure: ?Transthoracic Echocardiogram Patient: ?SHAUN DUNHAM ?(Age): 1965(55y) Med Rec#: ? [id number] ?Sex: ?F ? Site Loc: ? [facility] ?Ht / Wt: ??168(cm)/68(kg) Pt. Loc: ?Echo Lab ?BSA: ?1.77 Study Date: ?? 04/09/2021 ?Pt. Type: Outpatient Tape: ? Referring: Brayden Hodges ([id number]) Referring: ELYSE Reading: Dinesh Trejo ([id number]) Electron Microscopist: Francisco Izaguirre Interpreting Fellow: Neri De La Cruz ([id number]) Diagnosis: *Dilated cardiomyopathy (I42.0) Rhythm: ? Sinus [...] Vmax ?0.72 ? m/sec ? MV deceleration asjj839.99 ? msec ? MV A-wave Vmax ?0.93 [...] 04/09/2021 15:38:59 Images reviewed and interpretation verified [facility] Cardiac [facility]trasound [facility] Procedure Note Dinesh Trejo MD - 04/09/2021 Procedure: Transthoracic Echocardiogram Patient: SHAUN MARINO(Age): 1965(55y) Med Rec#: [id number] Sex: F Site Loc: [facility] Ht / Wt: 168(cm)/68(kg) Pt. Loc: Echo Lab BSA: 1.77 Study Date: 04/09/2021 Pt. Type: Outpatient Tape: Referring: Brayden Hodges ([id number]) Referring: ELYSE Reading: Dinesh Trejo ([id number]) Electron Microscopist: Francisco Izaguirre Interpreting Fellow: Neri De La Cruz ([id number]) Diagnosis: *Dilated cardiomyopathy (I42.0) Rhythm: Sinus BP: [...] MV E-wave Vmax 0.72 m/sec MV deceleration olxz424.99 msec MV A-wave Vmax 0.93 m/sec MV [...] 04/09/2021 15:38:59 Images reviewed and interpretation verified [facility]ound [facility] Brayden Hodges MD ECHO ORDERABLES documented in this encounter Visit Diagnoses Diagnosis Dilated congestive cardiomyopathy Other primary cardiomyopathies documented in this encounter Care Teams Supervisor Mold Yard Relationship Specialty Start Date End Date Marbella Francisco PA [address] [place] [id number] PCP - General Family Medicine 07/23/18 08/04/23 documented as of this encounter
--- OUTSIDE RECORDS SUMMARY | 2024-03-11 16:25 | XMS_ITS | Encounter Summary ---
Author Organization [facility] [place] [place] [address] Care Team Providers Care Gas Examiner Name Role Phone Marbella Francisco Primary Care Provider Reason for Visit * Reason Onset Date Comments Bumped Appointment 03/11/2021 Encounter Details Date Type Department Care Team (Late st Contact Info) Description 03/11/2021 Telephone [place] [address] Saulo Godinez MD [facility] [place] [address] Bumped Appointment Social History Tobacco Use Types Packs/Day Years Used Date Smoking Tobacco: Former Smokeless Tobacco: Never Comments:Only as a teenager Sex and Gender Information Value Date Recorded Sex Assigned at Not on file Gender Identity Not on file Sexual Orientation Not on file documented as of this encounter Miscellaneous Notes * Telephone Encounter - Cyn Aleman - 03/12/2021 10:58 AM EDT LM#2 to return call to reschedule 03/[address] Godinez to next available date as the provider is now in the OR. Or please offer to double book with Dr. Payne on Wednesday 03/14 prior to 3:00pm. ? NXR/ BILAT KNEE PAIN/ R TORN MENISCUS * Telephone Encounter - Susana Santiago - 03/11/2021 9:43 AM EDT LM#1 to return call to reschedule 03/[address] Godinez to next available date as the provider is not available. NXR/ BILAT KNEE PAIN/ R TORN MENISCUS documented in this encounter Plan of Treatment Not on file documented as of this encounter Visit Diagnoses Not on filedocumented in this encounter Care Teams Gas Examiner Relationship Specialty Start Date End Date Rodrick-Marbella Leung PA [address] [place] [id number] PCP - General Family Medicine 07/23/18 08/04/23 documented as of this encounter
--- OUTSIDE RECORDS SUMMARY | 2024-03-11 16:25 | XMS_ITS | Encounter Summary ---
[place] [address] Care Team Providers Care Egg Producer Name Role Phone Marbella Francisco Primary Care Provider Encounter Details Date Type Department Care Team (Late st Contact Info) Description 01/11/2022 Interpretation Only [address] [id number] Bipin Nguyen Jr., DO [address] [place] [address] Social History Tobacco Use Types Packs/Day Years [...] Date/Time Associated Diagnosis Comments US ABDOMEN LIMITED STAT 01/11/2022 4: 06 PM EDT documented in this encounter Results * US Abdomen Limited (01/11/2022 4:06 PM EDT) PT CLASS E RAD ADMITDTTM RAD PT RAD MD INFO [id number]^B ROWN^BIPIN^ A RAD EXAM DESC UABDLIM^US ABDOMEN LIMITED^RIS RAD Anatomical Region Laterality Modality Abdomen Ultrasound Impressions 01/11/2022 4:24 PM EDT Liver steatosis and hepatomegaly. Unchanged tiny gallbladder polyp. Persistent prominence of the common bile duct. Thank you for letting us participate in the care of this patient. ??If you are a health care provider and have any questions regarding this report, please contact the number below. ??For patients who have questions please contact the health respiratory care instructor that requested your imaging first. ? Electronically signed by: Spenser Escalante MD, [facility] ([phone]), at 01/11/2022 4:24 PM Narrative 01/11/2022 4:24 PM EDT EXAMINATION: US ABDOMEN LIMITED CLINICAL HISTORY: Jaundice, elevated liver enzymes TECHNIQUE: Ultrasound of the right upper quadrant was performed. COMPARISON: Right upper quadrant ultrasound dated January 25, 2021 CT abdomen and pelvis dated June 17, 2018 FINDINGS: Liver is enlarged at 21 cm craniocaudally and demonstrates diffusely increased echogenicity ??without mass. Portal vein is patent with hepatopetal flow. The gallbladder contains a 3 mm polyp and appears otherwise unremarkable without pericholecystic fluid, gallbladder wall thickening or stones. Common bile duct measures up to 9mm unchanged from June 17, 2018 CT. Imaged portion of the pancreas is unremarkable. Pancreatic tail is obscured by overlying bowel gas. The right kidney is unremarkable without hydronephrosis and measures 12cm. Procedure Note Spenser Escalante MD - 01/11/2022 EXAMINATION: US ABDOMEN LIMITED CLINICAL HISTORY: Jaundice, elevated liver enzymes TECHNIQUE: Ultrasound of the right upper quadrant was performed. COMPARISON: Right upper quadrant ultrasound dated January 25, 2021 CTabdomen and pelvis dated June 17, 2018 FINDINGS: Liver is enlarged at 21 cm craniocaudally and demonstratesdiffusely increased echogenicity without mass. Portal vein is patent withhepatopetal flow. The gallbladder contains a 3 mm polyp and appears otherwiseunremarkable without pericholecystic fluid, gallbladder wall thickening or stones.Common bile duct measures up to 9mm unchanged from June 17, 2018 CT. Imagedportion of the pancreas is unremarkable. Pancreatic tail is obscured by overlyingbowel gas. The right kidney is unremarkable without hydronephrosis and [id number]. IMPRESSION Liver steatosis and hepatomegaly. Unchanged tiny gallbladder polyp. Persistent prominence of the common bile duct. Thank you for letting us participate in the care of this patient. If youare a health care provider and have any questions regarding this report,please contact the number below. For patients who have questions please contactthe health respiratory care instructor that requested your imaging first. Electronically signed by: Spenser Escalante MD, [facility]([phone]), at 01/11/2022 4:24 PM Bipin Nguyen Jr., DO IMG US GEN ORDERABL ES documented in this encounter Visit Diagnoses Not on filedocumented in this encounter Care Teams Egg Producer Relationship Specialty Start Date End Date Marbella Francisco PA [address] [place] [phone] PCP - General Family Medicine 07/23/18 08/04/23 documented as of this encounter
--- OUTSIDE RECORDS SUMMARY | 2024-03-11 16:25 | XMS_ITS | Encounter Summary ---
Author Organization [facility] [place] [address] [place] [address] Care Team Providers Care Corporate Traffic Manager Name Role Phone Marbella Francisco Primary Care Provider [phone] Reason for Visit * Reason Onset Date Comments Appointment 07/10/2021 Encounter Details Date Type Department Care Team (Late st Contact Info) Description 07/10/2021 [place] [address] [place], NINA Perdomo [facility] DR [place]OP[place] [address] Appointment Social History Tobacco Use Types Packs/Day Years Used Date Smoking Tobacco: Former Smokeless Tobacco: Never Comments:Only as a teenager Sex and Gender Information Value Date Recorded Sex Assigned at Not on file Gender Identity Not on file Sexual Orientation Not on file documented as of this encounter Miscellaneous Notes * Telephone Encounter - Leonora Mays - 07/10/2021 12:52 PM EST Patient rescheduled. * Telephone Encounter - Raiza Hoover - 07/10/2021 10:29 AM EST Need to reschedule Friday07/16/2021 Injection. It was doubled booked. Please offer patient next first available. documented in this encounter Plan of Treatment Not on file documented as of this encounter Visit Diagnoses Not on filedocumented in this encounter Care Teams Corporate Traffic Manager Relationship Specialty Start Date End Date Marbella Francisco PA [address] [place] [id number] PCP - General Family Medicine 07/23/18 08/04/23 documented as of this encounter
--- OUTSIDE RECORDS SUMMARY | 2024-03-11 16:26 | XMS_ITS | Encounter Summary ---
Author Organization [facility] [place] [address] Care Team Providers Care Long Term Care Pharmacist Name Role Phone Unavailable Primary Care Provider Unavailabl e Encounter Details Date Type Department Care Team (Late st Contact Info) Description 10/13/2012 Ancillary Procedure Radiology [facility] at [facility] [place] [address] Marbella Francisco PA [address] [place] [address] Social History Tobacco Use Types Packs/Day Years Used Date Smoking Tobacco: Never Assessed Sex and Gender Information Value Date Recorded Sex Assigned at Not on file Gender Identity Not on file Sexual Orientation Not on file documented as of this encounter Plan of Treatment Not on file documented as of this encounter Procedures Procedure Name Priority Date/Time Associated Diagnosis Comments FILM LIBRARY STORAGE ONLY MAMMO Routine 10/13/2012 12:00 AM EDT documented in this encounter Results * Film Library- Storage Only Mammo (10/13/2012 12:00 AM EDT) Narrative RAD - 11/04/2018 4:08 PM EDT This exam is auto-finalizing. It's purpose is for storage only. Marbella WOOD IMG FILM LIBRARY ORD ERABLES [place], [place] documented in this encounter Visit Diagnoses Not on filedocumented in this encounter
--- OUTSIDE RECORDS SUMMARY | 2024-03-11 16:26 | XMS_ITS | Encounter Summary ---
Author Organization [facility] Address [address] [place] [address] Care Team Providers Care Wood Carving Lathe Operator Name Role Phone Unavailable Primary Care Provider Unavailabl e Encounter Details Date Type Department Care Team (Late st Contact Info) Description 06/28/2023 Lab Requisition [facility] Pathology & Laboratory Medicine - [address] [address] Outr Resulting Lab, Provider Social History Tobacco Use Types Packs/Day Years Used Date Smoking Tobacco: Never Assessed Sex and Gender Information Value Date Recorded Sex Assigned at Not on file Gender Identity Not on file Sexual Orientation Not on file documented as of this encounter Plan of Treatment Not on file documented as of this encounter Procedures Procedure Name Priority Date/Time Associated Diagnosis Comments LYME AB Routine 06/27/2023 14:50 EST documented in this encounter Results * LYME AB (06/27/2023 14:50 EST) Lyme Ab Negative Negative 06/30/2023 10:22 EST [facility] Blood VENOUS BLOOD / Unknown 06/27/2023 14:50 EST 06/28/2023 21:25 EST Provider Outr Resulting Lab IMMUNOLOGY A ND SEROLOGY ORDERABLES [facility] [address] [place] [address] documented in this encounter Visit Diagnoses Not on filedocumented in this encounter
--- OUTSIDE RECORDS SUMMARY | 2024-03-11 16:26 | XMS_ITS | Encounter Summary ---
Author Organization [facility] Address [address] [place] [address] Care Team Providers Care Register Of Wills Name Role Phone Unavailable Primary Care Provider Unavailabl e Encounter Details Date Type Department Care Team (Late st Contact Info) Description 04/05/2023 Lab Requisition [facility] Pathology & Laboratory Medicine - [address] [address] Outr Resulting Lab, Provider Social History Tobacco [...] Date/Time Associated Diagnosis Comments LYME AB Routine 04/04/2023 10:00 EST documented in this encounter Results * LYME AB (04/04/2023 10:00 EST) Lyme Ab Negative Negative 04/07/2023 11:23 EST [facility] Blood VENOUS BLOOD / Unknown 04/04/2023 10:00 EST 04/05/2023 21:19 EST Provider Outr Resulting Lab IMMUNOLOGY A ND SEROLOGY ORDERABLES [facility] [address] [place] [address] documented in this encounter Visit Diagnoses Not on filedocumented in this encounter
--- OUTSIDE RECORDS SUMMARY | 2024-03-11 16:26 | XMS_ITS | Encounter Summary ---
Author Organization [facility] [place] [address] Care Team Providers Care Health Researcher Name Role Phone Unavailable Primary Care Provider Unavailabl e Encounter Details Date Type Department Care Team (Late st Contact Info) Description 06/17/2018 Interpretation Only [address] [place] [address] Unknown None Social History Tobacco Use Types Packs/Day Years Used Date Smoking Tobacco: Never Assessed Sex and Gender Information Value Date Recorded Sex Assigned at Not on file Gender Identity Not on file Sexual Orientation Not on file documented as of this encounter Plan of Treatment Not on file documented as of this encounter Procedures Procedure Name Priority Date/Time Associated Diagnosis Comments CT ABDOMEN AND PELVIS W CONTRAST Routine 06/17/2018 10:07 AM EST documented in this encounter Results * CT Abdomen & Pelvis w Contrast (06/17/2018 10:07 AM EST) Anatomical Region Laterality Modality Abdomen, Pelvis Computed Tomogra phy 06/17/2018 10:0 7 AM EST Impressions 06/17/2018 11:[address] appearance of the liver and pancreas. Underdistended stomach with suggestion of circumferential wall thickening. If there is clinical history supportive of gastritis, consider direct visualization for further evaluation. Diverticulosis without evidence of diverticulitis. Thank you for letting us participate in the care of this patient. For questions regarding this report, please contact the number below. ? Narrative 06/17/2018 11:10 AM EST EXAMINATION: ??CT ABDOMEN/PELVIS w/ CLINICAL HISTORY: ??PERSISTANT LIVER AND PANCREATIC ENZYMES, , ?? TECHNIQUE: Helical CT of the abdomen and pelvis was performed following the intravenous administration of contrast. 80 cc of Omnipaque 350 was given. ??Oral contrast was administered. COMPARISON: None FINDINGS: Lower chest: Small hiatal hernia. Liver: Normal size and attenuation without lesions. Bile ducts: Nondilated. Gallbladder: No calcified gallstones. Normal caliber wall. Pancreas: Normal attenuation without ductal dilatation. Spleen: Normal. Adrenals: Normal. Kidneys: Normal. Urinary Bladder: Normal. Vasculature: No aneurysm. Lymph Nodes: Prominent right external iliac chain node which measures 9 mm in greatest dimension (series 201 image 1:15). Bowel: Nondilated, no wall thickening. Evaluation of the stomach is limited by underdistention and nonopacification. There does appear to be circumferential gastric wall thickening. Sigmoid colonic diverticulosis. No adjacent inflammatory change. Peritoneum and mesentery: No ascites, free air, or loculated fluid collection. No mesenteric inflammation. Abdominal wall: Normal. Reproductive organs: Normal. Osseous structures: No suspicious lesions. L5-S1 disc degenerative change and at least moderate right-sided neural foraminal narrowing at L5-S1. Procedure Note Srikanth Alvarado MD - 06/17/2018 EXAMINATION: CT ABDOMEN/PELVIS w/ CLINICAL HISTORY: PERSISTANT LIVER AND PANCREATIC ENZYMES, , TECHNIQUE: Helical CT of the abdomen and pelvis was performed followingthe intravenous administration of contrast. 80 cc of Omnipaque 350 was given.Oral contrast was administered. COMPARISON: None FINDINGS: Lower chest: Small hiatal hernia. Liver: Normal size and attenuation without lesions. Bile ducts: Nondilated. Gallbladder: No calcified gallstones. Normal caliber wall. Pancreas: Normal attenuation without ductal dilatation. Spleen: Normal. Adrenals: Normal. Kidneys: Normal. Urinary Bladder: Normal. Vasculature: No aneurysm. Lymph Nodes: Prominent right external iliac chain node which measures 9 mmin greatest dimension (series 201 image 1:15). Bowel: Nondilated, no wall thickening. Evaluation of the stomach islimited by underdistention and nonopacification. There does appear to becircumferential gastric wall thickening. Sigmoid colonic diverticulosis. No adjacent inflammatory change. Peritoneum and mesentery: No ascites, free air, or loculated fluidcollection. No mesenteric inflammation. Abdominal wall: Normal. Reproductive organs: Normal. Osseous structures: No suspicious lesions. L5-S1 disc degenerative changeand at least moderate right-sided neural foraminal narrowing at L5-S1. IMPRESSION Normal CT appearance of the liver and pancreas. Underdistended stomach with suggestion of circumferential wall thickening.If there is clinical history supportive of gastritis, consider directvisualization for further evaluation. Diverticulosis without evidence of diverticulitis. Thank you for letting us participate in the care of this patient. Forquestions regarding this report, please contact the number below. Electronically signed by: SRIKANTH ALVARADO [facility]([phone]), at 06/17/2018 11:[address] ORDERABLES documented in this encounter Visit Diagnoses Not on filedocumented in this encounter
--- OUTSIDE RECORDS SUMMARY | 2024-03-11 16:26 | XMS_ITS | Encounter Summary ---
Author Organization [facility] Address [address] [place] [address] Care Team Providers Care Custodial Manager Name Role Phone Unavailable Primary Care Provider Unavailabl e Encounter Details Date Type Department Care Team (Late st Contact Info) Description 04/04/2023 Lab Requisition [facility] Pathology & Laboratory Medicine - [facility] [address] [place] [address] Outr Resulting Lab, Provider Social History Tobacco [...] Procedure Name Priority Date/Time Associated Diagnosis Comments TRANSFERRIN Routine 04/04/2023 10:00 EST documented in this encounter Results * TRANSFERRIN (04/04/2023 10:00 EST) Transferrin 261 201 - 352 mg/dL 04/07/2023 8:58 EST [facility] Blood VENOUS BLOOD / Unknown 04/04/2023 10:00 EST 04/04/2023 18:01 EST Provider Outr Resulting Lab CHEMISTRY & BLOOD GAS ORDERABLES [facility] [address] [place] [address] documented in this encounter Visit Diagnoses Not on filedocumented in this encounter
--- OUTSIDE RECORDS SUMMARY | 2024-03-11 16:26 | XMS_ITS | Encounter Summary ---
Author Organization [facility] Address [address] [place] [address] Care Team Providers Care Senior Quality Manager Name Role Phone Unavailable Primary Care Provider Unavailabl e Encounter Details Date Type Department Care Team (Late st Contact Info) Description 03/01/2022 Lab Requisition [facility] - [facility] [address] [place] [address] Outr Resulting Lab, Provider Social History Tobacco [...] Procedure Name Priority Date/Time Associated Diagnosis Comments ZZCOVID-19 TEST [facility] PCR Today 03/01/2022 19:00 EDT COVID-19 TESTING Routine 03/01/2022 19:0 0 EDT documented in this encounter Results * COVID-19 TEST [facility] PCR (03/01/2022 19:00 EDT) Swab 03/01/2022 19:0 0 EDT 03/02/2022 21:42 EDT Provider Outr Resulting Lab MICROBIOLOGY - GENERAL ORDERABLES [facility] [address] [place] [address] * COVID-19 TESTING (03/01/2022 19:00 EDT) COVID-19 rt-PCR Result Negative Negative 03/03/2022 10:52 EDT [facility] Comment: This test has not been FDA cleared or approved. This test has been authorized by FDA under an EUA for use by authorized laboratories. This test has been authorized only for detection of nucleic acid from 2019-nCoV, not for any other viruses or pathogens. This test is only authorized for the duration of the declaration that circumstances exist justifying the authorization of emergency use of in vitro diagnostic tests for detection and/or diagnosis of 2019-nCoV under section 564(b)(1) of Act, 21 U.S.C ?? 360bbb-3(b) (1), unless the authorization is terminated or revoked sooner. Negative results do not preclude 2019-nCoV infection and should not be used as the sole basis for treatment or other patient management decisions. Negative results must be combined with clinical observations, patient history, and epidemiological information. Testing was performed using the christine SARS-CoV-2 assay ([employer] on the Christine 6800 System Performing Lab Christine [address] [facility] 03/03/2022 10:52 EDT [facility] Swab 03/01/2022 19:0 0 EDT 03/02/2022 21:42 EDT Provider Outr Resulting Lab MICROBIOLOGY - GENERAL ORDERABLES [facility] [address] [place] [address] documented in this encounter Visit Diagnoses Not on filedocumented in this encounter
--- OUTSIDE RECORDS SUMMARY | 2024-03-11 16:26 | XMS_ITS | Referral Summary ---
Author Organization [facility] Address [address] [place] [address] Care Team Providers Care Machine Compositor Name Role Phone Unavailable Primary Care Provider Unavailabl e Social History Tobacco Use Types Packs/Day Years Used Date Smoking Tobacco: Never Assessed Sex and Gender Information Value Date Recorded Sex Assigned at Not on file Gender Identity Not on file Sexual Orientation Not on file Plan of Treatment Not on file
--- OUTSIDE RECORDS SUMMARY | 2024-03-11 16:26 | XMS_ITS | Encounter Summary ---
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 Name Role Phone Unavailable Primary Care Provider Unavailabl e Encounter Details Date Type Department Care Team (Late st Contact Info) Description 04/02/2018 Interpretation Only Radiology [address] [facility] [place] [address] Marbella Nava PA [address] [place] [id number] Social History Tobacco Use Types Packs/Day Years [...] Associated Diagnosis Comments US ABDOMEN LIMITED Routine 04/02/2018 10 :00 AM EST documented in this encounter Results * US Abdomen Limited (04/02/2018 10:00 AM EST) Anatomical Region Laterality Modality Abdomen Ultrasound 04/02/2018 10:0 0 AM EST Impressions 04/02/2018 10:32 AM EST Abdomen Limited Summary Fatty liver. No cholelithiasis or cholecystitis. I ??viewed the images and agree with the above interpretation. ? Srikanth Alvarado MD Electronically Signed Final Report ?? 04/02/2018 10:32 am Narrative 04/02/2018 10:32 AM EST Abdominal ? (Signed Final 04/02/2018 10:32 am) PATIENT INFO: ID #: ? [id number] ? : ??[birth year] (52 yrs) Name: ? ROLY BUENO ? Visit Date: 04/02/2018 10:00 am PERFORMED BY: Performed By: ? Maritza Horton RDMS Attending: ?Christiano GROVE, Srikanth Varma Referred By: ?TAWANDA NAVA Location: ? [facility] SERVICE(S) PROVIDED: ??UABDLIM - Abdominal Limited Survey Single ?[id number] ??Organ or Quadrant - [id number] INDICATIONS: ??R/O GALLBLADDER AND LIVER DISEASE, COMPARISON: No prior studies for comparison. ------ LIVER: ------ Right Lobe Length: ?? 19.43 ??cm Echogenicity/Echotexture: ?? Increased echogenicity, ? hepatomegaly, focal fatty sparing ? francisco javier hepatis Portal Veins: ?Hepatopetal GALLBLADDER: Cholelithiasis: ?No stones visualized Wall Thickness: ?0.15 Focal Tenderness: ?Negative sonographic Hoover's sign BILIARY TRACT: Intrahepatic Ducts: ?? Normal Extrahepatic Ducts: ?? Normal Common Duct Size: ? 4.85 ?? mm --------- PANCREAS: --------- Head: ? Normal Tail: ? Poorly visualized due to overlying bowel Body: ? Poorly visualized due to overlying bowel RIGHT KIDNEY: Size (cm) ?L: ??11.18 ? AP: ??4.78 ?TV: ??5.39 Cortical Thickness: ? Normal Cortical Echogenicity: ??Normal Hydronephrosis: ? No sonographic evidence ---- IVC: ---- Normal in caliber where visualized. Procedure Note Srikanth Alvarado MD - 04/02/2018 Abdominal (Signed Final 04/02/2018 10:32 am) PATIENT INFO: ID #: [id number] : [birth year] (52 yrs) Name: ROLY BUENO Visit Date: 04/02/2018 10:00 am PERFORMED BY: Performed By: Maritza Horton RDMS Attending: Srikanth Alvarado MD Referred By: TAWANDA NAVA Location: [facility] SERVICE(S) PROVIDED: UABDLIM - Abdominal Limited Survey Single [id number] Organ or Quadrant - [id number] INDICATIONS: R/O GALLBLADDER AND LIVER DISEASE, COMPARISON: No prior studies for comparison. ------ LIVER: ------ Right Lobe Length: 19.43 cm Echogenicity/Echotexture: Increased echogenicity, hepatomegaly, focal fatty sparing francisco javier hepatis Portal Veins: Hepatopetal GALLBLADDER: Cholelithiasis: No stones visualized Wall Thickness: 0.15 Focal Tenderness: Negative sonographic Hoover's sign BILIARY TRACT: Intrahepatic Ducts: Normal Extrahepatic Ducts: Normal Common Duct Size: 4.85 mm --------- PANCREAS: --------- Head: Normal Tail: Poorly visualized due to overlying bowel Body: Poorly visualized due to overlying bowel RIGHT KIDNEY: Size (cm) L: 11.18 AP: 4.78 TV: 5.39 Cortical Thickness: Normal Cortical Echogenicity: Normal Hydronephrosis: No sonographic evidence ---- IVC: ---- Normal in caliber where visualized. IMPRESSION Abdomen Limited Summary Fatty liver. No cholelithiasis or cholecystitis. I viewed the images and agree with the above interpretation. Srikanth Alvarado MD Electronically Signed Final Report 04/02/2018 10:32 am Marbella ARIAS US GEN ORDERABLE S documented in this encounter Visit Diagnoses Not on filedocumented in this encounter
--- OUTSIDE RECORDS SUMMARY | 2024-03-11 16:26 | XMS_ITS | Encounter Summary ---
[place] [address] Care Team Providers Care Digital Press Operator Name Role Phone Marbella Francisco Primary Care Provider Reason for Referral * Consultation (Routine) - Closed Specialty Diagnoses / Procedures Referred By Contac t Referred To Contact Orthopaedics Diagnoses Osteoarthritis of thumb, unspecified laterality Melania Stephen MD [facility] [place] [address] [facility] [address] [place] [id number] Referral ID Status Reason Start Date Expiration Date V isits Requested Visits Authorized [id number] Closed Consult, Test & Treat 07/23/2018 07/23/2019 1 1 * Psychiatric (Routine) - Closed Specialty Diagnoses / Procedures Referred By Contac t Referred To Contact Psychiatry Diagnoses Post-traumatic stress disorder, acute Mixed anxiety and depressive disorder Melania Stephen MD [facility] [place] [address] Justin Tong PsyD [facility] [place] [address] Referral ID Status Reason Start Date Expiration Date V isits Requested Visits Authorized [id number] Closed Consult, Test & Treat 07/23/2018 07/23/2019 1 1 Reason for Visit * Consultation (Routine) - Closed Specialty Diagnoses / Procedures Referred By Hayley lay Referred To Contact Gastroenterology Diagnoses eval persistent liver and pancreas inflammation Procedures consult Marbella Francisco PA [address] [place] [address] [facility] [place] [address] [place] [address] Referral ID Status Reason Start Date Expiration Date Visits Re quested Visits Authorized [id number] Closed 06/12/2018 06/12/2019 1 1 Encounter Details Date Type Department Care Team (Late st Contact Info) Description 07/23/2018 4:00 PM EST Office Visit [place] [address] Melania Stephen MD [facility] [place] [address] Elevated liver enzymes; Post-traumatic stress disorder, acute; Mixed anxiety and depressive disorder; Osteoarthritis of thumb, unspecified laterality Social History Tobacco Use Types Packs/Day Years Used Date Smoking Tobacco: Former Smokeless Tobacco: Never Comments:Only as a teenager Sex and Gender Information Value Date Recorded Sex Assigned at Not on file Gender Identity Not on file Sexual Orientation Not on file documented as of this encounter Last Filed Vital Signs Vital Sign Reading Time Taken Comments Blood Pressure 147/108 07/23/2018 4:00 PM EST Pulse 97 07/23/2018 4:00 PM EST Temperature - - Respiratory Rate - - Oxygen Saturation - - Inhaled Oxygen Concentration - - Weight 74.2 kg (163 lb 9.6 oz) 07/23/2018 4:00 P M EST Height 170.2 cm (5' 7) 07/23/2018 4:00 PM EST Body Mass Index 25.62 07/23/2018 4:00 PM EST documented in this encounter Progress Notes * Melania Stephen MD - 07/23/2018 4:00 PM EST Images from the original note were not included. HEPATOLOGY CONSULTATION Radha Bueno 1965 DIRECTOR OF RECREATION THERAPY: Melania Stephen MD ([id number]) PCP: NINA Freitas Requesting Provider: Marbella Francisco PA [address] [place] [id number] REASON FOR CONSULTATION HISTORY OF PRESENT ILLNESS Radha Bueno is a 52 y.o. year old who present to PCP in February for fatigue. She reports being diagnosed with EBV, but her serology was negative for IgM and only positive with IgG. She was also noted to elevated cholesterol and glucose (HbA1c 6.2%) at the time. Liver enzymes and lipase were noted to be mildly elevated in 02/2018. Follow up labs in 05/2018 showed continued mild elevation in AST/ALT, but normal lipase. Ultrasound showed fatty liver on 04/02/2018. February was the first time she was told that she had elevated liver enzymes. She notes more diarrhea recently. She had a colonoscopy a few years without any polyps. No family history of colon cancer or polyps. She has a history of GERD. She had EGD in the past which showed a hiatal hernia, this was about 4 years ago. She reports a several year history of feeling full fast. Over last year she notes if she eats too much she will vomit. No dysphagia. She had been previously on dexilant, but was recent switched to zantac. She drinks alcohol daily. She is drinking 1/2 bottle of wine per night, with some night having vodka as well. Her risk factors for ESTRADA include elevated HbA1c, hyperlipidemia, and hypertension. She has lost 20 lbs over the past year. She has been going to gym more regularly, but feels she haslost more weight than expected. ROS: Constitutional: HPI HEENT: no visual changes, no URI symptoms Cardio: no chest pain Resp: no cough, SOB with her asthma, no SANTANA or orthopnea Hem/Lymph: no new lumps or bumps on body GI: see HPI : no dysuria Integumentary: no new rashes Musculoskeletal: no new joint pains Neuro: no new numbness, weakness in extremities PAST MEDICAL/SURGICAL HISTORY 1. Partial hysterectomy for bicornate uterus, she has her cervix, one fallopian tube, and one ovary 2. Endometriosis 3. Appendectomy 4. Surgery on both feet 5. Asthma 6. Hand arthritis 7. Elevated HbA1c 8. Hyperlipidemia MEDICATIONS Outpatient Medications Marked as Taking for the 07/23/18 encounter (Office Visit) with Jayden Stephen MD Medication Sig Dispense Refill ??? amLODIPine-benazepril (LOTREL) 5-20 mg Capsule Take 1 capsule by mouth daily. ??? VENTOLIN HFA 90 mcg/actuation HFA Aerosol Inhaler ??? [DISCONTINUED] omeprazole (PRILOSEC) 40 mg Capsule, Delayed Release(E.C.) Take 40 mg by mouth daily. ALLERGIES Allergies Allergen Reactions ??? Unable To Find [Unclassified Drug] Pet Dander SOCIAL HISTORY Social History Socioeconomic History ??? Marital status: Spouse name: Not on file ??? Number of children: Not on file ??? Years of education: Not on file ??? Highest education level: Not on file Social Needs ??? Financial resource strain: Not on file ??? Food insecurity - worry: Not on file ??? Food insecurity - inability: Not on file ??? Transportation needs - medical: Not on file ??? Transportation needs - non-medical: Not on file Occupational History ??? Not [...] Social History Narrative ??? Not on file FAMILY HISTORY There is no family history of inflammatory bowel disease, celiac disease, or colorectal cancer. Father with alcoholic liver disease. Vitals: 07/23/18 1600 BP: (!) 147/108 Pulse: 97 Weight: 74.2 kg (163 lb 9.6 oz) Height: 170.2 cm (5' 7) PHYSICAL EXAM General: Appears stated age, NAD Eyes: Normal sclera, normal conjunctiva ENT: Moist mucus membranes, normal posterior pharynx Lymph: No lymphadenopathy of the head or neck Heart: Heart sounds I and II were audible, no added sounds, no murmurs Lungs: Clear to ausculation bilaterally Abdomen: Soft, non-tender, no organomegaly, normal active bowel sounds Extremities: No peripheral edema Skin: No jaundice, no spider nevi, no palmar erythema Neuro: No asterixis, grossly intact Mental: Appropriate affect, oriented in person, place, and time RESULTS See HPI Fibroscan Results: Mean kPa: 8.3 Mean IQR: 23% (goal is <30 %) Success rate: 88% (goal is >60%) Predicted fibrosis stage: F2 CAP: 341 ASSESSMENT/PLAN #1 Elevated liver enzymes and lipase I suspect the cause of the elevated liver enzymes and lipase is her alcohol use. I recommend she stop all alcohol use. However, given the finding of F2 fibrosis by fibroscan today I will per inform workup for other causes of elevated liver enzymes. #2 GERD #3 Diarrhea We discussed that her GERD is likely being made worse by her alcohol use. She will continue on the Zantac for now and we will see how her symptoms change after she stops alcohol. I also suspect that the diarrhea is secondary to the alcohol. However, if the diarrhea persist after she is been off of alcohol for the next month further evaluation would be warranted. #4 Anxiety and depression #5 History of PTSD She has not reestablished with a counselor since moving to [place]. She does think that this would be helpful. There is recognition that her alcohol intake is likely associated to untreated anxiety and depression. She agreed with referral to psychiatry for further management. #6 arthritis in both thumbs She is previously had improvement with cortisone injection. Will refer to orthopedics for further management. Plan: - Labs today - Follow up visit in clinic in 1 month Melania Stephen MD Hepatology and Gastroenterology [facility] FABRIZIO Moran V: [phone] Copy: NINA Freitas [address] [place] [address] [place] [id number] documented in this encounter Procedure Notes * Melania Stephen MD - 07/23/2018 4:00 PM ESTAssociated Order(s): FIBROSCAN Procedure(s): FIBROSCAN Pre-Procedure Diagnose(s): Elevated liver enzymes [facility] Liver Fibrosis Assessment Report Indication: Elevated liver enzymes Performed by: Melania Stephen MD Procedure: Vibration Controlled Transient Elastography (VCTE) or Fibroscan Gravel Switch Protocol: Patient's identity, procedure and site were verified, confirmatory pause performed. Discussed procedure including risks and potential complications. Questions answered. Patient verbalizes understanding and wishes to proceed with Fibroscan assessment. Patient was placed in the supine position with right arm in maximum abduction to allow optimal exposure of right lateral abdomen. Patient was briefly assessed. Testing was performed in the mid-axillary location. 50Hz Shear Wave pulses were applied and the resulting Shear Wave and Propagation Speed was detected with a 3.5MHz ultrasonic signal, using the Fibroscan probe. Skin to liver capsule distance and liver parenchyma were accessed during the entire examination with the Fibroscan probe. Patient was instructed to breathe normally and abstain from sudden movements during the procedure. At least ten Sheer Waves were produced; individual measurements of each Shear Wave were calculated. Patient tolerated the procedure well with no complications. M-probe. Fibroscan Results: Median kPa: 8.3 Mean IQR: 23% (goal is <30 %) Number of valid measurements: 15 (at least 10 required) Number of invalid measurements: 2 Predicted fibrosis stage: F2 CAP (dB/m): 341 Estimated steatosis grade: 3/3 % hepatocytes affected: >66% Interpretation: Based on this Fibroscan result, history, clinical examination and review of laboratory and radiological data, this patient likely has stage F2 liver fibrosis. documented in this encounter Plan of Treatment Scheduled Referrals Name Type Priority Associated Diagnoses Orde r Schedule Referral to Psychiatry Outpatient Referral Routine Post-traumatic stress disorder, acute Mixed anxiety and depressive disorder Ordered: 07/23/2018 Referral to Orthopaedics Outpatient Referral Routine Osteoarthritis of thumb, unspecified laterality Ordered: 07/23/2018 documented as of this encounter Procedures Procedure Name Priority Date/Time Associated Diagnosis Comments HEMOGRAM Routine 07/23/2018 5:32 PM EST Elevated liver enzymes DIFFERENTIAL, AUTOMATED Routine 07/23/2018 5:32 PM EST Elevated liver enzymes HEPATITIS C ANTIBODY Routine 07/23/2018 5:32 PM EST Elevated liver enzymes IRON AND TIBC Routine 07/23/2018 5:32 PM EST Elevated liver enzymes [id number] Routine 07/23/2018 5 :32 PM EST Elevated liver enzymes HEPATITIS A ANTIBODY, TOTAL Routine 07/23/2018 5:32 PM EST Elevated liver enzymes MITOCHONDRIAL ANTIBODY, M2 Routine 07/23/2018 5:32 PM EST Elevated liver enzymes CERULOPLASMIN Routine 07/23/2018 5:32 PM EST Elevated liver enzymes HEPATITIS B CORE ANTIBODY, TOTAL Routine 07/23/2018 5:32 PM EST Elevated liver enzymes SMOOTH MUSCLE ANTIBODY Routine 9 5:32 PM EST Elevated liver enzymes [place] SCREEN, 4TH GENERATION [place] [place] Routine 07/23/2018 5:32 PM EST Elevated liver enzymes HEPATITIS B SURFACE ANTIBODY Routine 07/23/2018 5:32 PM EST Elevated liver enzymes HEPATITIS B SURFACE ANTIGEN Routine 07/23/2018 5:32 PM EST Elevated liver enzymes PROTHROMBIN TIME Routine 07/23/2018 5:32 PM EST Elevated liver enzymes CBC (WITH DIFF) Routine 07/23/2018 5:32 PM EST Elevated liver enzymes CHARLEY ANTIBODY SCREEN Routine 07/23/2018 5 :32 PM EST Elevated liver enzymes PROTEIN ELECTROPHORESIS, SERUM Routine 07/23/2018 5:32 PM EST Elevated liver enzymes IGG Routine 07/23/2018 5:32 PM EST Elevated liver enzymes FERRITIN Routine 07/23/2018 5:32 PM EST Elevated liver enzymes COMPREHENSIVE METABOLIC PANEL Routine 07/23/2018 5:32 PM EST Elevated liver enzymes [id number] Routine 07/23/2018 4:00 PM EST Elevated liver enzymes documented in this encounter Results * Differential, Automated (07/23/2018 5:32 PM EST) Pathologist [facility] Neutrophil % 55.7 % [facility] Neutrophil Absolute 3.26 1.70 - 6.10 x10(3)/[facility] Lymph % 34.7 % [facility] Lymphocytes Abs 2.0 0.9 - 3.2 x10(3)/[facility] Monocyte % 7.4 % [facility] Monocyte Abs 0.4 0.3 - 0.9 x10(3)/[facility] Eos % 1.7 % [facility] Eosinophils Abs 0.1 0.0 - 0.4 x10(3)/[facility] Basophil % 0.3 % [facility] Baso Absolute 0.0 0.0 - 0.1 x10(3)/[facility] Immature Gran % 0.20 % [facility] Comment: Immature granulocytes(IG's)percentage and absolute count will include metamyelocytes, myelocytes, and promyelocytes. Blood smears from CBCs yielding IG's will be scanned manually for concordance. If this scan disagrees with the automated IG or if promyelocytes are noted, a manual differential will be performed. Immature Gran Absolute 0.01 0.00 - 0.04 x10(3)/[facility] Blood specimen (specimen) 07/23/2018 5:32 PM EST 07/23/2018 5:40 PM EST Narrative Resulting Agency Comment Spec In Lab Melania Stephen MD HEMATOLOGY ORDERABLE S [facility] [place] [address] * (ABNORMAL) Hemogram (07/23/2018 5:32 PM EST) Pathologist [facility] White Blood Cell 5.8 4.0 - 9.5 x10(3)/mc L [facility] Red Blood Cell 4.33 4.00 - 5.21 x10(6)/mc L [facility] Hemoglobin 14.2 11.7 - 15.5 gm/dL [facility] Hematocrit 42.1 35.7 - 45.8 % [facility] Mean Cell Volume 97.2(H) 82.6 - 94.4 fL [facility] Mean Cell Hemoglobin 32.8(H) 27.1 - 32.0 pg [facility] Mean Cell Hemoglobin Concentration 33.7 31.7 - 35.0 gm/dL [facility] Platelet 237 145 - 357 x10(3)/ L [facility] RDW Standard Deviation 46.8(H) 37.0 - 46.0 [facility] RDW coefficient of variation 12.9 11.5 - 14.1 % [facility] Mean Platelet Volume 9.6 7.6 - 12.9 [facility] NRBC% auto 0.0 % [facility] NRBC Absolute 0.000 0.000 - 0.000 x10(3)/ L [facility] Blood specimen (specimen) 07/23/2018 5:32 PM EST 07/23/2018 5:40 PM EST Narrative Resulting Agency Comment Spec In Lab Melania Stephen MD HEMATOLOGY ORDERABLE S [facility] [place] [address] * Ceruloplasmin (07/23/2018 5:32 PM EST) Ceruloplasmin 17.9 16.0 - 45.0 mg/dL [facility] Blood specimen (specimen) 07/23/2018 5:32 PM EST 07/23/2018 5:40 PM EST Narrative Resulting Agency Comment Spec In Lab Melania Stephen MD CHEMISTRY ORDERABLES Performing Organization Address City/[facility] Co de Phone Number [facility] [place] [address] * A1AT Serum Concentration (07/23/2018 5:32 PM EST) A1AT 118 90 - 200 mg/dL [facility] Blood specimen (specimen) 07/23/2018 5:32 PM EST 07/23/2018 5:40 PM EST Narrative Resulting Agency Comment Spec In Lab Melania Stephen MD CHEMISTRY ORDERABLES Performing Organization Address [facility] Co de Phone Number [facility] [place] [address] * (ABNORMAL) Ferritin (07/23/2018 5:32 PM EST) [facility] Ferritin 595(H) 30 - 400 ng/mL [facility] Comment: Pediatric reference ranges not verified at [facility] [place], interpret with caution. Reference ranges for females greater than 50 years of age approach values for men, i.e., 30-400 ng/mL. Blood specimen (specimen) 07/23/2018 5:32 PM EST 07/23/2018 5:40 PM EST Narrative Resulting Agency Comment Spec In Lab Melania Stephen MD CHEMISTRY ORDERABLES Performing Organization Address [facility] Co de Phone Number [facility] [place] [address] * Iron and TIBC (07/23/2018 5:32 PM EST) Iron 80 30 - 150 mcg/dL [facility] TIBC 251 250 - 450 mcg/dL [facility] Iron Saturation 32 20 - 50 % [facility] Blood specimen (specimen) 07/23/2018 5:32 PM EST 07/23/2018 5:40 PM EST Narrative Resulting Agency Comment Spec In Lab Melania Stephen MD CHEMISTRY ORDERABLES [facility] [place] [address] * Protein Electrophoresis, serum (07/23/2018 5:32 PM EST) [facility] Total Prot Electrophoresis 7.3 6.1 - 8.0 gm/dL [facility] Albumin Electrophoresis 4.07 3.60 - 6.00 gm/dL [facility] Alpha 1 Globulin 0.21 0.10 - 0.30 gm/dL [facility] Alpha 2 Globulin 0.81 0.40 - 0.90 gm/dL [facility] Beta Globulin 0.92 0.50 - 1.00 gm/dL [facility] Gamma Globulin 1.28 0.50 - 1.30 gm/dL [facility] M1 Band None Detected None Detected [facility] Blood specimen (specimen) 07/23/2018 5:32 PM EST 07/23/2018 5:40 PM EST Narrative Resulting Agency Comment Spec In Lab Melania Stephen MD CHEMISTRY ORDERABLES Performing Organization Address [facility] Co de Phone Number [facility] [place] [address] * IgG (07/23/2018 5:32 PM EST) [facility] Immunoglobulin G 1,434 700 - 1,600 mg/dL [facility] Comment: Pediatric Reference Intervals obtained from the Caliper Reference Interval project. http://www.sickkids.ca/caliperproject/index.html Blood specimen (specimen) 07/23/2018 5:32 PM EST 07/23/2018 5:40 PM EST Narrative Resulting Agency Comment Spec In Lab Melania Stephen MD CHEMISTRY ORDERABLES Performing Organization Address City/[facility]/ZIP Co de Phone Number [facility] [place] [address] * Mitochondrial Antibody, M2 (07/23/2018 5:32 PM EST) Mitochon Ab (SEPTEMBER) <0.1 <0.1 (Negative) U [facility] Comment: Test Performed by: [facility] - [address] [address] Blood specimen (specimen) 07/23/2018 5:32 PM EST 07/24/2018 8:37 AM EST Narrative Resulting Agency Comment Spec In Lab Melania Stephen MD LAB SEND OUT ORDERAB LES Performing Organization Address [facility] Co de Phone Number [facility] [place] [address] * Smooth Muscle Antibody (07/23/2018 5:32 PM EST) Pathologist [facility] Sm Muscle Ab (SEPTEMBER) Negative Negative [facility] Comment: ADDITIONAL INFORMATION This test was developed and its performance characteristics determined by [facility] in a manner consistent with CLIA requirements. This test has not been cleared or approved by the U.S. Food and Drug Administration. Test Performed by: [facility] - [address] [address] Blood specimen (specimen) 07/23/2018 5:32 PM EST 07/24/2018 8:37 AM EST Narrative Resulting Agency Comment Spec In Lab Melania Stephen MD LAB SEND OUT ORDERAB LES Performing Organization Address City/[facility]/ZIP Co de Phone Number [facility] [place] [address] * CHARLEY (LEB/CGP) (07/23/2018 5:32 PM EST) CHARLEY Neg Neg [facility] Blood specimen (specimen) 07/23/2018 5:32 PM EST 07/24/2018 7:56 AM EST Narrative Resulting Agency Comment Spec In Lab Melania Stephen MD LAB SEND OUT ORDERAB LES Performing Organization Address [facility] Co de Phone Number [facility] [place] [address] * HIV Screen, 4th Generation (07/23/2018 5:32 PM EST) HIV Ab/Ag Screen Negative Negative [facility] Comment: This 4th Generation HIV test [...] Stephen MD CHEMISTRY ORDERABLES Performing Organization Address [facility] Co de Phone Number [facility] [place] [address] * Hepatitis C Antibody (07/23/2018 5:32 PM EST) Hepatitis C Antibody Negative Negative [facility] Blood specimen (specimen) 07/23/2018 5:32 PM EST 07/23/2018 5:40 PM EST Narrative Resulting Agency Comment Spec In Lab Melania Stephen MD CHEMISTRY ORDERABLES Performing Organization Address [facility] Co de Phone Number [facility] [place] [address] * Hepatitis B Core Antibody, Total (07/23/2018 5:32 PM EST) Hepatitis B Core Antibody Negative Negative [facility] Blood specimen (specimen) 07/23/2018 5:32 PM EST 07/23/2018 5:40 PM EST Narrative Resulting Agency Comment Spec In Lab Melania Stephen MD CHEMISTRY ORDERABLES Performing Organization Address [facility] Co de Phone Number [facility] [place] [address] * Hepatitis B Surface Antigen (07/23/2018 5:32 PM EST) Hepatitis B Surface Antigen Negative Negative [facility] Blood specimen (specimen) 07/23/2018 5:32 PM EST 07/23/2018 5:40 PM EST Narrative Resulting Agency Comment Spec In Lab Melania Stephen MD CHEMISTRY ORDERABLES [facility] [place] [address] * Hepatitis B Surface Antibody (07/23/2018 5:32 PM EST) Hepatitis B Surface Antibody, Quantitative 3.5 IU/L [facility] Comment: HepB Surface Ab Quant: Unvaccinated: < 8.5 IU/L Vaccinated: > 11.5 IU/L Hepatitis B Surface Antibody Negative [facility] Comment: Patient is presumed to be not vaccinated or immune to HBV infection. Expected Results: Vaccinated: Positive Unvaccinated: Negative Blood specimen (specimen) 07/23/2018 5:32 PM EST 07/23/2018 5:40 PM EST Narrative Resulting Agency Comment Spec In Lab Melania Stephen MD CHEMISTRY ORDERABLES Performing Organization Address City/[facility]/ZIP Co de Phone Number [facility] [place] [address] * Hepatitis A Antibody, Total (07/23/2018 5:32 PM EST) Hepatitis A ANTIBODY, TOTAL Negative Negative [facility] Blood specimen (specimen) 07/23/2018 5:32 PM EST 07/23/2018 5:40 PM EST Narrative Resulting Agency Comment Spec In Lab Melania Stephen MD CHEMISTRY ORDERABLES [facility] [place] [address] * (ABNORMAL) Prothrombin Time (07/23/2018 5:32 PM EST) Prothrombin Time 12.9(H) 9.4 - 12.5 sec [facility] International Normalization Ratio 1.1 [facility] Comment: An INR <2.0 indicates adequate procoagulant activity for hemostasis in most patients without underlying bleeding disorders, though the INR may not adequately reflect hemostatic capacity in patients with liver disease and synthetic impairment. The recommended target INR range for therapeutic anticoagulation is 2.0 ? 3.0 for most applications, though lower and higher ranges may be appropriate depending on clinical circumstances. Blood specimen (specimen) 07/23/2018 5:32 PM EST 07/23/2018 5:40 PM EST Narrative Resulting Agency Comment Spec In Lab Melania Stephen MD HEMATOLOGY ORDERABLE S [facility] [place] [address] * (ABNORMAL) Comprehensive metabolic panel (non-fasting) (07/23/2018 5:32 PM EST) Glucose 89 65 - 199 mg/dL [facility] Comment:Diabetes: >=200 mg/d L plus symptoms Blood Urea Nitrogen 17 8 - 18 mg/dL [facility] Creatinine 0.58(L) 0.70 - 1.20 mg/dL [facility] Sodium 137 135 - 145 mmol/L [facility] Potassium 3.7 3.5 - 5.0 mmol/L [facility] Comment: Please note: ??Patients with WBC >100,000 may have falsely elevated Potassium levels. ??For accurate Potassium quantification in these patients send serum separator tube (gold top) for subsequent determinations. ??Contact the Clinical Chemistry Laboratory if there are any questions. Chloride 96(L) 98 - 107 mmol/L [facility] Carbon Dioxide 21(L) 22 - 31 mmol/L [facility] Anion Gap 20(H) 5 - 15 mmol/L [facility] Calcium 8.9 8.5 - 10.5 mg/dL [facility] Protein, Total 7.4 6.1 - 8.0 gm/dL [facility] Albumin 3.8 3.2 - 5.2 gm/dL [facility] Aspartate Aminotransferase 5 0 - 30 unit/L [facility] Alanine Aminotransferase 5 0 - 30 unit/L [facility] Alkaline Phosphatase 76 40 - 104 unit/L [facility] Bilirubin, Total 0.4 0.2 - 1.3 mg/dL [facility] Est Glomerular Filtration Rate 106 >=60 mL/min/1. 73 m?? [facility] Comment: The eGFR was calculated using the CKD-EPI equation. As with all creatinine based estimates of kidney function, eGFR values calculated with the CKD-EPI equation are not accurate in patients with acute kidney failure, extremes of body mass or the acutely ill. [email or web address] eGFR 123 >=60 mL/min/1. 73 m?? [facility] Comment: The eGFR was calculated using the CKD-EPI equation. As with all creatinine based estimates of kidney function, eGFR values calculated with the CKD-EPI equation are not accurate in patients with acute kidney failure, extremes of body mass or the acutely ill. [email or web address] Blood specimen (specimen) 07/23/2018 5:32 PM EST 07/23/2018 5:40 PM EST Narrative Resulting Agency Comment Spec In Lab Melania Stephen MD CHEMISTRY ORDERABLES [facility] [place] [address] * [id number] (07/23/2018 4:00 PM EST) Narrative Melania Stephen MD - 07/23/2018 4:00 PM EST Melania Stephen MD ? 07/24/2018 11:41 AM [facility] Liver Fibrosis Assessment Report Indication: ?? Elevated liver enzymes Performed by: ??Melania Stephen MD Procedure: Vibration Controlled Transient Elastography (VCTE) or Fibroscan Gravel Switch Protocol: Patient's identity, procedure and site were verified, confirmatory pause performed. Discussed procedure including risks and potential complications. Questions answered. Patient verbalizes understanding and wishes to proceed with Fibroscan assessment. Patient was placed in the supine position with right arm in maximum abduction to allow optimal exposure of right lateral abdomen. Patient was briefly assessed. Testing was performed in the mid-axillary location. 50Hz Shear Wave pulses were applied and the resulting Shear Wave and Propagation Speed was detected with a 3.5MHz ultrasonic signal, using the Fibroscan probe. Skin to liver capsule distance and liver parenchyma were accessed during the entire examination with the Fibroscan probe. Patient was instructed to breathe normally and abstain from sudden movements during the procedure. At least ten Sheer Waves were produced; individual measurements of each Shear Wave were calculated. Patient tolerated the procedure well with no complications. M-probe. Fibroscan Results:Median kPa: 8.3 Mean IQR: 23% (goal is <30 %) Number of valid measurements: 15 (at least 10 required) Number of invalid measurements: 2 Predicted fibrosis stage: F2 CAP (dB/m): 341 Estimated steatosis grade: 3/3 % hepatocytes affected: >66% Interpretation: Based on this Fibroscan result, history, clinical examination and review of laboratory and radiological data, this patient likely has stage F2 liver fibrosis. 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
--- OUTSIDE RECORDS SUMMARY | 2024-03-11 16:26 | XMS_ITS | Clinical Summary ---
Author Organization [facility] Address [address] [place] [address] Care Team Providers Care Supervisor [employer] Name Role Phone Unavailable Primary Care Provider Unavailabl e Social History Tobacco Use Types Packs/Day Years Used Date Smoking Tobacco: Never Assessed Sex and Gender Information Value Date Recorded Sex Assigned at Not on file Gender Identity Not on file Sexual Orientation Not on file Plan of Treatment Health Maintenance Due Date Last Done Comments Hepatitis C Screen 1965 Hepatitis B Vaccine (1 of 3 - 19+ 3-dose series) 10/20 COVID-19 Vaccine (2022-24 season) 2023
[2024-03-11 21:54] LABS: COVID-19 PCR Negative (Negative); Influenza A PCR Negative (Negative); Influenza B PCR Negative (Negative); RSV PCR Negative (Negative)
[2024-03-11 22:01] LABS: Source Nasopharynx
== END 2024-03-11 16:24 | disposition home or self-care (01) ==
LOC: LBN 16:23
PROVIDERS: PCP Physician Assistant Medical; Visit Provider Physician Assistant Medical
DX: B34.9 Viral infection, unspecified (principal)
CPT/HCPCS: 87637

== ENCOUNTER 2025-01-25 15:54 | Outpatient (REF) | payer OTHER, SELFPAY ==
[2025-01-26 11:01] LABS: Campylobacter PCR Negative (Negative); Shiga Toxin PCR Negative (Negative); Shigella/Enteroinvasive Ecoli Negative (Negative)
== END 2025-01-25 15:55 | disposition home or self-care (01) ==
LOC: LBN 15:54
PROVIDERS: PCP Physician Assistant Medical; Visit Provider Nurse Practitioner Family
DX: R19.5 Other fecal abnormalities (principal)
CPT/HCPCS: 87015; 87269; 87272; 87505; 83993